=== PATIENT | female | born 1955 | race Caucasian/White ===

== ENCOUNTER 2020-03-24 14:04 | Emergency (ER) | payer OTHER, MEDICAID, SELFPAY ==
[2020-03-24 15:27] VITALS: BP 99/54; PULSE 79; RESP 18; TEMP 36.4; O2SAT 97; BMI 24.6
[2020-03-24 17:59] VITALS: BP 109/73; PULSE 80; RESP 17; TEMP 37.5; O2SAT 96
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
--- NOTE | 2020-03-24 18:19 | XR_ITS ---
EXAMINATION: XR CHEST: 2 VIEW XR CERVICAL SPINE: 5 VIEWS XR RIGHT SHOULDER: 3 VIEWS XR LEFT KNEE: 2 VIEWS CLINICAL INFORMATION: Trauma COMPARISON: Chest x-ray dated 02/20/2016 XR/XR knee LT 2V FINDINGS/IMPRESSION: Chest: Middle lobe collapse/complete atelectasis. Left lung clear. No pneumothorax. Heart size and pulmonary vascularity within normal limits. No acute osseous abnormalities. Cervical spine: No acute fracture or subluxation. Endplate ossified present at C4-C5. Mild facet arthropathy throughout cervical spine. Paraspinal soft tissues unremarkable. Right shoulder: No acute fracture or dislocation. Small acromioclavicular and glenohumeral marginal osteophytes. Soft tissues unremarkable. Right knee: No acute fracture or dislocation. Joint spaces and articular surfaces are maintained. Trace joint effusion. Soft tissues unremarkable.
--- NOTE | 2020-03-24 19:32 | CT_ITS ---
EXAMINATION: CT CHEST WITHOUT CONTRAST CLINICAL INFORMATION: Right middle lobe collapse. COMPARISON: Chest radiograph 03/24/2020 and 09/21/2019 TECHNIQUE: Multidetector volumetric CT imaging of the chest was done. Axial MIP volume rendering provided. Sagittal and coronal reformatted images were obtained. This CT examination was performed using dose optimization techniques as appropriate, variously including the following: *Automated exposure control *Adjustment of mA and/or kV according to patient size (this includes techniques or standardized protocols for targeted exams where dose is matched to indication/reason for exam; i.e. extremities or head) *Use of iterative reconstruction technique DLP: 208 mGy-cm FINDINGS: DETAIL MANAGER: Right middle lobe collapse/consolidation is present identical to that seen on the chest radiograph earlier today LUNGS: Dense consolidation is present in the right middle lobe with air bronchograms. There is some volume loss with partial collapse. The lungs are otherwise clear. MEDIASTINUM: The mediastinum is normal. No adenopathy is seen. For evaluation of the hilar structures, especially on the right, IV contrast would be advantageous. PLEURA: There is no pleural effusion. No pleural mass or thickening. AXILLA: No lymphadenopathy. UPPER ABDOMEN: A 1.5 cm benign water density left adrenal adenoma is present. A tiny adenoma may be present in the right adrenal gland. OSSEOUS STRUCTURES: Unremarkable. CT/CT chest wo con IMPRESSION: Right middle lobe collapse/consolidation. This could certainly represent pneumonia. Mucous plug could be another etiology. Repeat chest radiograph recommended in 3 months after treatment.
[2020-03-24 20:00] VITALS: BP 110/68; PULSE 73; RESP 17; TEMP 36.8; O2SAT 96
[2020-03-24 20:18] LABS: Basophils Absolute Auto 0.1 X10*3/uL (0.0-0.2); Basophils Percent Auto 0.8 % (0-2); Eosinophils Absolute Auto 0.2 X10*3/uL (0.0-0.4); Eosinophils Percent Auto 1.9 % (0-4); Hematocrit 42.7 % (37-47); Hemoglobin 14.6 g/dl (12.0-16.0); Imm Gran Abs Auto 0.02 X10*3/uL (0.00-0.03); Imm Gran Pct Auto 0.2 % (0.0-0.4); Lymphocytes Percent Auto 52.2 % (20-40); MANUAL DIFF FLAG SCAN; Mean Corpuscular HGB Conc 34.2 g/dl (31.0-35.0); Mean Corpuscular Volume 102.4 fL (80-98); Mean Platelet Volume 11.1 fL (9.4-12.3); Monocytes Absolute Auto 0.8 X10*3/uL (0.1-1.2); Neutrophils Absolute Auto 4.4 X10*3/uL (2.0-8.3); Neutrophils Percent Auto 37.9 % (45-73); Platelet Count 253 X10*3/uL (160-400); Red Blood Count 4.17 X10*6/uL (4.20-5.50); Red Cell Distribution Width 13.9 % (11.0-16.0); SCAN SMEAR FLAG 1; White Blood Count 11.6 X10*3/uL (4.8-10.8)
[2020-03-24 20:21] LABS: Prothrombin Time 11.9 SEC (10.8-13.0)
[2020-03-24 20:24] LABS: Partial Thromboplastin Time 34.7 SEC (24.1-38.0)
[2020-03-24 20:32] LABS: Lymphocytes Absolute Auto 6.1 X10*3/uL (1.2-4.9)
[2020-03-24 20:37] LABS: Anion Gap 11 (12-20); Blood Urea Nitrogen 17 mg/dL (9-16); Calcium 9.7 mg/dL (8.4-10.2); Carbon Dioxide 27 mmol/L (22-29); Chloride 108 mmol/L (96-108); Creatinine Clr Calc Pharmacy 50.1; Estimated Glomerular Filt Rate > 60; Glucose Random 116 mg/dL (60-115); Potassium 4.5 mmol/L (3.3-5.1); Sodium 141 mmol/L (135-145)
[2020-03-24 20:54] LABS: SLIDE REVIEW VERIFIED
== END 2020-03-24 21:13 | disposition home or self-care (01) ==
PROVIDERS: Nurse Practitioner Family; Emergency Provider Internal Medicine; PCP Family Medicine
DX: S19.9XXA Unspecified injury of neck, initial encounter (principal); S29.9XXA Unspecified injury of thorax, initial encounter; J18.1 Lobar pneumonia, unspecified organism; M25.562 Pain in left knee; M25.561 Pain in right knee; M54.5 Low back pain; R07.89 Other chest pain; V43.52XA Car driver injured in collision with other type car in traffic accident, initial encounter; Y93.9 Activity, unspecified; Y92.410 Unspecified street and highway as the place of occurrence of the external cause; Y99.9 Unspecified external cause status; F17.200 Nicotine dependence, unspecified, uncomplicated; Z71.6 Tobacco abuse counseling; Z79.899 Other long term (current) drug therapy
CPT/HCPCS: 36415; 71046; 71250; 72040; 73030; 73560; 80048; 85025; 85060; 85610; 85730; 99284

== ENCOUNTER → 2020-03-31 13:05 | Outpatient (BNVA) | payer MEDICAID, SELFPAY | PROVIDERS: PCP Family Medicine; Visit Provider Hospitalist | DX: J98.11 Atelectasis (principal); J41.8 Mixed simple and mucopurulent chronic bronchitis | CPT/HCPCS: 99202 ==

== ENCOUNTER 2020-04-06 13:33 | Outpatient (REF) | payer OTHER, MEDICAID, SELFPAY ==
--- NOTE | ~2020-04-06 | US_ITS ---
EXAMINATION: COLOR-FLOW DUPLEX IMAGING OF THE BILATERAL LOWER EXTREMITY ARTERIAL SYSTEM. VELOCITY MEASUREMENTS THROUGHOUT THE FEMORAL ARTERIES WITH ANKLE-BRACHIAL PERIPHERAL ARTERIAL TESTING. CLINICAL INFORMATION: This is a 64-year-old female with right leg pain. Claudication. Interventional Radiologist: Ha Fleming M.D., F.S.I.R., FLio.Anuel.. COMPARISON: None. RIGHT FEMORAL RUNOFF VELOCITIES: The right common femoral artery measures 101 cm/s and triphasic. The right profunda femoral artery is 109 cm/s and is triphasic. Right proximal superficial femoral artery measures 74 cm/s and triphasic. Mid superficial femoral artery is 83 cm/s and triphasic. Distal right superficial femoral artery measures 79 cm/s and is triphasic. Right popliteal velocity measures 82 cm/s and is triphasic. The posterior tibial artery velocity measures 76 cm/s and was triphasic. LEFT FEMORAL RUNOFF VELOCITIES: The left common femoral artery measures 101 cm/s and triphasic. The left profunda femoral artery is 87 cm/s and is triphasic. Left proximal superficial femoral artery measures 76 cm/s and triphasic. Mid superficial femoral artery is 94 cm/s and triphasic. Distal left superficial femoral artery measures 81 cm/s and is triphasic. Left popliteal velocity measures 59 cm/s and is triphasic. The posterior tibial artery velocity measures 67 cm/s and was triphasic. 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 On the right measuring 1.9 x 0.6 x 1.4 cm. On the left measuring 2.5 x 0.8 x 1.7 cm. US/US arterial duplex LE BI IMPRESSION: 1. Normal bilateral resting peripheral arterial testing without evidence of hemodynamically significant stenosis. 2. 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
== END 2020-04-06 13:34 | disposition home or self-care (01) ==
LOC: HO.US 13:33
PROVIDERS: PCP Family Medicine; Visit Provider Family Medicine
DX: M79.604 Pain in right leg (principal)
CPT/HCPCS: 93925

== ENCOUNTER 2020-04-11 13:41 | Outpatient (REF) | payer MEDICAID, SELFPAY ==
--- NOTE | ~2020-04-11 | MR_ITS ---
EXAMINATION: MR BRAIN WITHOUT AND WITH CONTRAST CLINICAL INFORMATION: Tinnitus right ear, recent onset. COMPARISON: None available. TECHNIQUE: Multiplanar, multisequence imaging of the brain was performed before and after the intravenous administration of 5 mL of Gadavist. FINDINGS: The inner ear structures including the cochlea, vestibules, and semicircular canals exhibit preserved CSF signal intensity with no pathologic enhancement. The vestibular aqueducts are not enlarged. Cranial nerves VII and VIII complexes are normal in morphology. No enhancing cerebellopontine angle/retrocochlear lesion. There is no intracranial mass or abnormal intracranial enhancement. There is no acute infarction. There is no intracranial hemorrhage or extra axial collection. The ventricles, sulci, and basilar cisterns are normal in size and configuration. A small lacunar infarct is seen within the left basal ganglia and demonstrates minimal peripheral enhancement suggesting this is subacute. A few scattered foci of T2 hyperintensity are seen in the bilateral cerebral white matter presumably reflecting chronic microangiopathy. Incidentally noted is moderate to severe polypoid thickening throughout the visualized paranasal sinuses with scattered aerated secretions seen. There is a small amount of fluid in the right mastoid. The major arterial flow voids are preserved at the skull base. The orbital contents appear normal. The adenoids appear diffusely enlarged with the adenoid pad measuring up to 1.5 cm. The clival marrow signal appears normal. There is no retropharyngeal adenopathy. MR/MR head/brain wo/w con IMPRESSION: No vestibular schwannoma or retrocochlear lesion identified. A subacute appearing lacunar infarct is incidentally noted within the left basal ganglia. Moderate to severe polypoid opacification of the paranasal sinuses with small amount of layering fluid. Consider ENT follow-up. The adenoid pad appears enlarged, unexpected for a patient of this age. This could be visually inspected at the time of ENT evaluation.
== END 2020-04-11 13:42 | disposition home or self-care (01) ==
LOC: HO.MRI 13:41
PROVIDERS: Visit Provider Family Medicine
DX: H93.11 Tinnitus, right ear (principal)
CPT/HCPCS: 70553; A9585

== ENCOUNTER 2020-04-25 11:10 | Outpatient (REF) | payer MEDICAID, SELFPAY ==
--- NOTE | ~2020-04-25 | XR_ITS ---
EXAMINATION: XR CHEST CLINICAL INFORMATION: Chronic bronchitis COMPARISON: Previous chest x-ray and chest CT scan February 2020 TECHNIQUE: 2 views of the chest were obtained. FINDINGS: The cardiac and mediastinal contours are stable. There is right middle lobe atelectasis/consolidation that is similar to previous exams. There are increased central hilar markings suggestive of mild bronchial wall thickening. The lungs are otherwise clear. There is no pleural effusion or pneumothorax. Bony structures are unremarkable. XR/XR chest 2V IMPRESSION: Right middle lobe atelectasis/consolidation similar to previous exams.
== END 2020-04-25 11:11 | disposition home or self-care (01) ==
LOC: HO.XRAY 11:10
PROVIDERS: PCP Family Medicine; Visit Provider Hospitalist
DX: J41.8 Mixed simple and mucopurulent chronic bronchitis (principal); J98.11 Atelectasis
CPT/HCPCS: 71046; 99212

== ENCOUNTER 2020-05-08 08:42 | Outpatient (REF) | payer MEDICAID, SELFPAY ==
--- NOTE | ~2020-05-08 | CT_ITS ---
EXAMINATION: CT CHEST WITHOUT CONTRAST CLINICAL INFORMATION: Atelectasis. COMPARISON: CT chest 03/24/2020 and chest x-ray 04/25/2020. TECHNIQUE: Multidetector volumetric CT imaging of the chest was done. Axial MIP volume rendering provided. Sagittal and coronal reformatted images were obtained. This CT examination was performed using dose optimization techniques as appropriate, variously including the following: Automated exposure control. Adjustment of mA and/or kV according to patient size (this includes techniques or standardized protocols for targeted exams where dose is matched to indication/reason for exam; i.e. extremities or head). Use of iterative reconstruction technique. 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 LUNGS: Lungs are well-expanded and clear of acute pneumonic process. There is a punctate 2 mm calcification in right middle lobe image 406/7. No additional pulmonary nodules, mass or atelectasis seen. No ground-glass density either. MEDIASTINUM: The thyroid lobes are symmetric and normal. The central trachea and the bronchi are widely patent. There is atherosclerotic calcification of thoracic arch and origins of right brachiocephalic and left subclavian artery. No abnormal size mediastinal or hilar lymph nodes seen. No pericardial effusion seen. Minimal left coronary artery calcifications are seen. PLEURA: There is no pleural effusion. No pleural mass or thickening. AXILLA: No abnormal lymph nodes seen. UPPER ABDOMEN: Visualized liver, spleen, pancreas and right adrenal gland is unremarkable. There is a left adrenal 1.5 cm adenoma measuring 0.13 Hounsfield units. OSSEOUS STRUCTURES: No lytic or sclerotic process seen. CT/CT chest wo con IMPRESSION: The lungs are clear. No evidence of atelectasis. There is a 2 mm calcified granuloma right middle lobe. A 1.5 cm left adrenal adenoma. It is unchanged to previous CT chest exam 03/24/2020.
== END 2020-05-08 08:43 | disposition home or self-care (01) ==
LOC: HO.CT 08:42
PROVIDERS: Visit Provider Hospitalist
DX: J98.11 Atelectasis (principal)
CPT/HCPCS: 71250

== ENCOUNTER 2020-05-23 10:06 | Outpatient (REF) | payer MEDICAID, SELFPAY ==
--- NOTE | ~2020-05-23 | XR_ITS ---
EXAMINATION: XR CHEST CLINICAL INFORMATION: Atelectasis COMPARISON: None TECHNIQUE: 2 views of the chest were obtained. FINDINGS: The lungs are well-expanded with increased interstitial markings but no focal nodule or consolidation. No pleural effusion. Heart size and vascularity is normal. No gross bony abnormality seen. XR/XR chest 2V IMPRESSION: Unremarkable chest exam.
== END 2020-05-23 10:07 | disposition home or self-care (01) ==
LOC: HO.XRAY 10:06
PROVIDERS: PCP Family Medicine; Visit Provider Hospitalist
DX: J98.11 Atelectasis (principal); J41.8 Mixed simple and mucopurulent chronic bronchitis; F17.200 Nicotine dependence, unspecified, uncomplicated; Z71.6 Tobacco abuse counseling; Z79.899 Other long term (current) drug therapy
CPT/HCPCS: 71046; 99212

== ENCOUNTER 2020-06-15 09:24 | Outpatient (REF) | payer MEDICAID, SELFPAY ==
--- NOTE | 2020-06-15 | EMG_ITS ---
Right tibial and peroneal motor studies were performed. Right superficial peroneal and sural sensory studies were performed. Tibial H-reflex was obtained and paraspinal muscles were tested. 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 MD MACARIO Pace/ANATOLY / [phone]
== END 2020-06-15 09:25 | disposition home or self-care (01) ==
LOC: HO.NEURO 09:24
PROVIDERS: PCP Family Medicine; Visit Provider Family Medicine
DX: M79.604 Pain in right leg (principal)
CPT/HCPCS: 95886; 95909

== ENCOUNTER 2020-07-28 12:24 | Outpatient (REF) | payer MEDICAID, SELFPAY ==
[2020-07-30 20:12] LABS: TS Negative Control Passed; TS Panel A 1; TS Panel B 0; TS Positive Control Passed; TSpotTB Negative (SeeBelow)
== END 2020-07-28 12:25 | disposition home or self-care (01) ==
LOC: HO.LAB 12:24
PROVIDERS: PCP Family Medicine; Visit Provider Internal Medicine
DX: R76.12 Nonspecific reaction to cell mediated immunity measurement of gamma interferon antigen response without active tuberculosis (principal)
CPT/HCPCS: 36415; 86481

== ENCOUNTER 2020-10-06 11:32 | Outpatient (REF) | payer MEDICARE, MEDICAID, SELFPAY ==
--- NOTE | ~2020-10-06 | MM_ITS ---
EXAMINATION: MM SCREENING DIGITAL BREAST TOMOSYNTHESIS, BILATERAL CLINICAL INFORMATION: Screening. Asymptomatic. The lifetime risk of breast cancer based on the Tyrer-Cuzick Model is 6%. COMPARISON: Mammography: 04/09/2019, 04/06/2018, 03/31/2017 TECHNIQUE: Digital breast tomosynthesis is performed in both the craniocaudal and mediolateral oblique views along with computer-aided detection (CAD). Synthesized 2D images are generated from the tomosynthesis. FINDINGS: There are scattered areas of fibroglandular density (ACR BI-RADS breast composition Category b). Parenchymal pattern is similar to prior exams. There is mild bilateral central anterior duct ectasia similar to prior studies. There is no significant mass or architectural abnormality or abnormal calcifications. The skin contours are smooth. No significant changes from prior studies. MM/MM tomosynthesis screening BI IMPRESSION: No mammographic evidence of malignancy. ASSESSMENT: BI-RADS 2: Benign RECOMMENDATION: Routine annual mammography screening. This patient's information was entered into a reminder system with a target due date for their next mammogram.
== END 2020-10-06 11:33 | disposition home or self-care (01) ==
LOC: HO.MAMMO 11:32
PROVIDERS: Visit Provider Family Medicine
DX: Z12.31 Encounter for screening mammogram for malignant neoplasm of breast (principal)
CPT/HCPCS: 77063; 77067

== ENCOUNTER 2020-11-23 10:39 | Outpatient (REF) | payer OTHER, SELFPAY ==
--- NOTE | ~2020-11-23 | XR_ITS ---
EXAMINATION: XR CHEST CLINICAL INFORMATION: Atelectasis. COMPARISON: 05/23/2020 TECHNIQUE: 2 views of the chest were obtained. FINDINGS: No acute finding. The lung weiner are felt to be grossly clear and comparable to previous. No infiltrate. No effusion. The cardiac silhouette is within normal limits. The hilar structures do not appear pathologically enlarged. There is no effusion. XR/XR chest 2V IMPRESSION: No acute finding.
== END 2020-11-23 10:40 | disposition home or self-care (01) ==
LOC: HO.XRAY 10:39
PROVIDERS: Visit Provider Hospitalist
DX: J41.8 Mixed simple and mucopurulent chronic bronchitis (principal); J98.11 Atelectasis; R91.8 Other nonspecific abnormal finding of lung field; Z79.899 Other long term (current) drug therapy
CPT/HCPCS: 71046; 99212

== ENCOUNTER → 2020-12-29 12:56 | Outpatient (REF) | payer OTHER, SELFPAY ==
--- NOTE | 2020-12-29 13:03 | HM_ITS ---
Conclusion: 1. Patient was monitored for total period of 6 days and 21 hours 2. Baseline rhythm is normal sinus rhythm with average heart of 86 beats per minute 3. No significant bradycardia or pauses noted 4. No significant arrhythmias noted 5. No patient reported events MTDD
== END ==
LOC: HO.CARD 12:56
PROVIDERS: PCP Family Medicine; Visit Provider Psychiatry & Neurology Neurology
DX: I63.50 Cerebral infarction due to unspecified occlusion or stenosis of unspecified cerebral artery (principal)
CPT/HCPCS: 93242

== ENCOUNTER → 2021-06-28 11:18 | Outpatient (BNVA) | payer OTHER, SELFPAY | PROVIDERS: PCP Family Medicine; Visit Provider Hospitalist | DX: J98.11 Atelectasis (principal); J44.1 Chronic obstructive pulmonary disease with (acute) exacerbation; R91.8 Other nonspecific abnormal finding of lung field | CPT/HCPCS: 99212 ==

== ENCOUNTER 2021-08-29 10:22 | Outpatient (REF) | payer OTHER, SELFPAY ==
[2021-08-29 11:55] LABS: Hemoglobin 14.9 g/dl (12.0-16.0); Mean Corpuscular HGB Conc 33.9 g/dl (31.0-35.0); Mean Corpuscular Hemoglobin 34.2 pg (27.0-33.0); Mean Corpuscular Volume 100.9 fL (80.0-98.0); Platelet Count 267 X10*3/uL (160-400); Red Blood Count 4.36 X10*6/uL (4.20-5.50); Red Cell Distribution Width 14.2 % (11.0-16.0); White Blood Count 11.2 X10*3/uL (4.8-10.8)
[2021-08-29 12:03] LABS: Estimated Average Glucose 126 mg/dL
[2021-08-29 12:36] LABS: Creatinine Urine 133.51 mg/dL; Microalbum/Creatinine Ratio Ur 8.9 ug/mg cr
[2021-08-29 12:41] LABS: Free T4 (Free Thyroxine) 1.79 ng/dL (0.71-1.85); Thyroid Stimulating Hormone 0.93 uIU/mL (0.32-4.0); Vitamin D 25-OH Total 40.7 ng/mL (>30)
[2021-08-29 12:53] LABS: Syphilis Screen Nonreactive (Nonreactive)
[2021-08-29 13:03] LABS: Alanine Aminotransferase 20 U/L (0-31); Albumin Level 4.6 g/dL (3.5-5.0); Alkaline Phosphatase 43 U/L (39-117); Anion Gap 15 (12-20); Aspartate Amino Transferase 19 U/L (5-31); Bilirubin Direct 0.2 mg/dL (0.0-0.5); Bilirubin Total 0.3 mg/dL (0.0-1.0); Blood Urea Nitrogen 14 mg/dL (9-16); Calcium 10.4 mg/dL (8.4-10.2); Carbon Dioxide 28 mmol/L (22-29); Chloride 105 mmol/L (96-108); Estimated Glomerular Filt Rate 58; Glucose Random 147 mg/dL (60-115); Potassium 3.8 mmol/L (3.3-5.1); Sodium 144 mmol/L (135-145); Total Protein 7.6 g/dL (6.5-8.0)
[2021-08-30 13:47] LABS: Calcium (PTHI) 10.6 mg/dL (8.6-10.4); PTHI 16 pg/mL (16-77)
[2021-08-31 19:17] LABS: TS Negative Control Passed; TS Panel A 1; TS Panel B 0; TS Positive Control Passed; TSpotTB Negative (Negative)
== END 2021-08-29 10:23 | disposition home or self-care (01) ==
LOC: HO.LAB 10:22
PROVIDERS: PCP Family Medicine; Visit Provider Family Medicine
DX: E11.22 Type 2 diabetes mellitus with diabetic chronic kidney disease (principal); E83.52 Hypercalcemia; N18.9 Chronic kidney disease, unspecified
CPT/HCPCS: 36415; 80048; 80076; 82043; 82306; 83036; 83970; 84439; 84443; 85027; 86481; 86780

== ENCOUNTER 2021-09-17 07:42 | Outpatient (REF) | payer OTHER, SELFPAY ==
--- NOTE | ~2021-09-17 | CT_ITS ---
EXAMINATION: CT CHEST WITHOUT CONTRAST CLINICAL INFORMATION: TIA. Left adrenal adenoma. COMPARISON: CT chest 05/08/2020 . TECHNIQUE: Multidetector volumetric CT imaging of the chest was done. Axial MIP volume rendering provided. Sagittal and coronal reformatted images were obtained. This CT examination was performed using dose optimization techniques as appropriate, variously including the following: *Automated exposure control *Adjustment of mA and/or kV according to patient size (this includes techniques or standardized protocols for targeted exams where dose is matched to indication/reason for exam; i.e. extremities or head) *Use of iterative reconstruction technique DLP: 198 mGy-cm FINDINGS: HOTEL RESERVATIONIST: Unremarkable LUNGS: The lungs are well-expanded and clear of acute pneumonic process. There is a right lower lobe basilar opacity likely atelectasis. Developing infiltrate is not excluded. It is a new finding. There is a 2 mm calcified nodule right middle lobe (axial image 386/7) is stable. No additional nodules seen. MEDIASTINUM: The thyroid lobes are symmetrical and normal. The central trachea and the bronchi widely patent. Heart size and the great vessels are normal caliber. There is atherosclerotic calcification of thoracic arch. No abnormal size mediastinal lymph nodes seen. There is no pericardial effusion. PLEURA: There is no pleural effusion. No pleural mass or thickening. AXILLA: There are small shotty lymph nodes in the axilla. The chest wall is unremarkable. UPPER ABDOMEN: Visualized liver, spleen, pancreas appears unremarkable. There is a left adrenal 1.3 x 1.7 cm lesion measuring 2.6 Hounsfield units, stable. OSSEOUS STRUCTURES: Slightly heterogeneous bone marrow is seen throughout the thoracic spine similar to previous exam. CT/CT chest wo con IMPRESSION: 1. Right lower lobe posterior basal segment patchy opacity atelectasis/developing infiltrate. 2. Stable right middle lobe calcified granuloma. Fleischner guidelines were followed.
--- NOTE | ~2021-09-17 | CT_ITS ---
EXAMINATION: CT ANGIOGRAM HEAD CT ANGIOGRAM NECK CLINICAL INFORMATION: Transient ischemic attack. COMPARISON: Brain MRI from 04/11/2020. TECHNIQUE: Initial noncontrast nutrition services manager imaging of the head and neck was performed. Noncontrast head CT was also performed. Test bolus sequences followed by intravenous administration 85 mL of Omnipaque 350. Helical imaging was performed in the axial plane from the aortic arch to the skull vertex. Delayed postcontrast imaging of the head was also performed. The data was processed at the nuclear medical technologist's workstation for generation of MIP sequences. Angled MIPs and volume rendered reformatted images were also generated at an offline 3D workstation. Stenoses are assessed in accordance with NASCET criteria unless otherwise indicated. This CT examination was performed using dose optimization techniques as appropriate, variously including the following: *Automated exposure control. *Adjustment of mA and/or kV according to patient size (this includes techniques or standardized protocols for targeted exams where dose is matched to indication/reason for exam; i.e. extremities or head). *Use of iterative reconstruction technique. DLP: 2150 mGy-cm FINDINGS: CT Head: There is no evidence of acute intracranial hemorrhage or edematous territorial infarction. Chronic lacunar infarct of the left ny radiata/lentiform nucleus. A few foci of hypoattenuation in the periventricular and deep white matter are consistent with mild microangiopathy. Salazar-white matter differentiation is preserved. The ventricles are normal in size and configuration. No evidence for obstructive hydrocephalus. No abnormal mass effect or midline shift. No extra-axial fluid collections. No pathologic intra-axial enhancement or regional oligemia. No acute soft tissue or osseous abnormalities. Prominent mucosal thickening of the paranasal sinuses. Chronic depression of the left lamina papyracea. The mastoid air cells and middle ear cavities are clear. The patient is edentulous. CT Neck: The thyroid gland and remaining cervical soft tissues are within normal limits. Moderate degenerative disease at C4-C5 and C5-C6. CT Upper Chest: The visualized lung apices and upper mediastinum are within normal limits. Neck CTA: Aortic Arch: Normal contour and caliber with mild calcific atherosclerotic disease. Classic 3 vessel branching pattern of the aortic arch. Great Vessel Origins: No significant stenosis of the branch origins. Right Common Carotid Artery: No focal stenosis or occlusion. Cervical Right Internal Carotid Artery: Normal opacification without focal stenosis or occlusion. Left Common Carotid Artery: No focal stenosis or occlusion. Cervical Left Internal Carotid Artery: Normal opacification without focal stenosis or occlusion. Cervical Right Vertebral Artery: Co-dominant. No focal stenosis or occlusion. Cervical Left Vertebral Artery: Co-dominant. No focal stenosis or occlusion. Brain CTA: Intracranial Internal Carotid Arteries: Calcific atherosclerotic disease of the intracranial internal carotid arteries without occlusion or flow-limiting stenosis. Right Anterior Cerebral Artery: The A1 segment is diminutive. Normal opacification of the distal KRISTA segments. Left Anterior Cerebral Artery: Normal A1 segment. Normal opacification of the distal KRISTA segments. Anterior Communicating Artery: Normal. Right Middle Cerebral Artery: Normal M1 segment of the MCA without focal stenosis or occlusion. Normal arborization of the distal segments. Left Middle Cerebral Artery: Normal M1 segment of the MCA without focal stenosis or occlusion. Normal arborization of the distal segments. Right Vertebral Artery: Normal V4 segment. Normal opacification of the proximal segments of the posterior inferior cerebellar artery. Left Vertebral Artery: Normal V4 segment. Normal opacification of the proximal segments of the posterior inferior cerebellar artery. Basilar Artery: Normal without focal stenosis or occlusion. Normal appearance of the proximal superior cerebellar arteries. Right Posterior Cerebral Artery: The P1 segment is mildly diminutive. 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 Normal opacification of the distal C[employer] WO[employer] STAIR BUILDER segments. Left Posterior Cerebral Artery: Normal P1 segment. Normal posterior communicating artery. Normal opacification of the distal C[employer] WO[employer] STAIR BUILDER segments. Right dominant transverse/sigmoid sinuses. The left-sided transverse/sigmoid sinuses are diminutive. Otherwise, normal opacification of the superior sagittal, straight, transverse, and sigmoid sinuses. CT/CT angio head neck IMPRESSION: 1. No evidence of acute intracranial hemorrhage or edematous territorial infarction. Mild underlying microangiopathy. Chronic lacunar infarct of the left-sided ny radiata/lentiform nucleus. 2. CTA of the head and neck without proximal occlusion or flow-limiting stenosis. 3. Prominent sinonasal mucosal disease.
--- NOTE | 2021-09-17 09:40 | CA_ITS ---
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 The calculated ejection fraction is 69% by biplane method. - No obvious valvular pathology seen on this study. Findings Left Ventricle Normal left ventricular cavity size. There is normal left ventricular wall thickness. The left ventricular systolic function is normal. The calculated ejection fraction is 69% by biplane method. There is no evidence of regional wall motion abnormalities. Diastolic function is normal for age. Right Ventricle Normal right ventricular cavity size and systolic function. Atria Both atria are normal in size. There is no evidence of interatrial shunt by color Doppler. Aortic Valve The aortic valve was not well visualized. There is no aortic valve stenosis. There is no aortic valve regurgitation. Mitral Valve The mitral valve appears normal. There is no mitral valve regurgitation. There is no mitral valve stenosis. Pulmonic Valve The pulmonic valve is likely normal. Tricuspid Valve There is trace tricuspid valve regurgitation. The pulmonary artery systolic pressure is normal. Great Vessels The aortic annulus, sinuses of valsalva, and asc aorta are normal in size. Venous The inferior vena cava is normal in size and collapses greater than 50% with inspiration. Pericardium/Pleural There is no evidence of pericardial effusion. Prior Study Comparison No prior study available for comparison. Recommendations, Care & Conclusions No obvious valvular pathology seen on this study. Measurements 2D Linear Measurements IVSd: 1.01 0.6-0.9/0.6-1.0 cm LVIDd: 3.33 3.9-5.3/4.2-5.9 cm LVIDd Index: 2.13 2.4-3.2/2.2-3.1 cm/m2 LVIDs: 1.99 2.0-3.6 cm LVPWd: 0.98 0.7-1.1 cm Ao Root: 2.90 2.1-3.5 cm LA Diam: 2.70 2.7-3.8/3.0-4.0 cm LAIDs Index: 1.73 1.5-2.3 cm/m2 LV Mass: 118.28 67-162/88-224 g LV Mass Index: 75.82 43-95/49-115 g/m2 LVOT Diam: 2.00 3.0+(-)1.3 cm 2D Systolic Function EF 4C: 71.30 >55% EF 2C: 70.70 >55% EF BiP: 69.20 >55% Mitral Valve MV Pk E: 0.74 MV PK A: 0.98 MV Decel Time: 185.00 E/A: 0.80 E'Lateral: 7.72 E'Medial: 7.72 E/E' Med: 9.50 E/E' Lat: 9.50 PHT: 54.00 MVA PHT: 4.07 Decel Searcy: 3.98 Aortic Valve AoV Pk Reymundo: 1.17 AoV Mn Reymundo: 0.70 AoV VTI: 0.29 AoV Pk Grad: 5.00 Aov Mn Grad: 3.00 ALYSE Cont.VTI: 2.50 LVOT LVOT Pk Reymundo: 0.93 LVOT Mn Reymundo: 0.57 LVOT VTI: 0.23 LVOT Pk Grad: 3.00 LVOT Mn Grad: 2.00 LVOT Diam: 2.00 LVOT Area: 3.14 Diastolic Function MV Pk E: 0.74 MV Pk A: 0.98 E/A: 0.80 E'Medial: 7.72 E/E' Med: 9.50 E' Laterial: 7.72 E/E' Lat: 9.50 Right Ventricle TAPSE (mm): 24.00 TVS' Reymundo: 11.00 Tricuspid Valve TR Pk Reymundo: 1.71 TR Pk Grad: 12.00 RA Press: 3.00 RVSP: 15.00 Great Vessels Aorta Ao Root-2D: 2.90 2.0-3.7 cm Ao Asc: 3.00 2.1-3.4 cm Pulmonary Valve PV Pk Reymundo: 0.96 Peak PV Grad: 4.00 Updated in Other Vendor System with Status of Final Skip Szymanski MD electronically signed on 09/17/2021 11:41:54 AM with status of Final
[2021-09-17] MEDS: iohexoL 350 MG/ML 100 ML INFUS..BTL IV (09:42)
== END 2021-09-17 07:43 | disposition home or self-care (01) ==
LOC: HO.CT 07:42
PROVIDERS: PCP Family Medicine; Visit Provider Family Medicine
DX: R93.89 Abnormal findings on diagnostic imaging of other specified body structures (principal); Z86.73 Personal history of transient ischemic attack (TIA), and cerebral infarction without residual deficits; D35.02 Benign neoplasm of left adrenal gland
CPT/HCPCS: 70496; 70498; 71250; 93306; Q9967

== ENCOUNTER 2021-10-09 11:50 | Outpatient (REF) | payer OTHER, SELFPAY ==
--- NOTE | ~2021-10-09 | MM_ITS ---
EXAMINATION: MM SCREENING DIGITAL BREAST TOMOSYNTHESIS, BILATERAL CLINICAL INFORMATION: Screening. Asymptomatic. The lifetime risk of breast cancer based on the Tyrer-Cuzick Model is 6.4%. COMPARISON: Mammography: October 06, 2020 and studies dating back to March 03, 2015 TECHNIQUE: Digital breast tomosynthesis is performed in both the craniocaudal and mediolateral oblique views along with computer-aided detection (CAD). Synthesized 2D images are generated from the tomosynthesis. FINDINGS: There are scattered areas of fibroglandular density (ACR BI-RADS breast composition Category b). There are no significant masses, abnormal calcifications, or other abnormalities. MM/MM tomosynthesis screening BI IMPRESSION: No significant changes from prior exam. ASSESSMENT: BI-RADS 1: Negative RECOMMENDATION: Routine annual mammography screening. This patient's information was entered into a reminder system with a target due date for their next mammogram.
== END 2021-10-09 11:51 | disposition home or self-care (01) ==
LOC: HO.MAMMO 11:50
PROVIDERS: PCP Family Medicine; Visit Provider Family Medicine
DX: Z12.31 Encounter for screening mammogram for malignant neoplasm of breast (principal)
CPT/HCPCS: 77063; 77067

== ENCOUNTER 2021-10-22 09:27 | Outpatient (REF) | payer OTHER, SELFPAY ==
--- NOTE | ~2021-10-22 | XR_ITS ---
EXAMINATION: XR CHEST CLINICAL INFORMATION: Follow-up abnormal chest CT COMPARISON: Previous chest CT August 2021 and chest x-ray October 2020 TECHNIQUE: 2 views of the chest were obtained. FINDINGS: The cardiac and mediastinal contours are normal. The lungs are clear. There is no pleural effusion or pneumothorax. Bony structures are unremarkable. XR/XR chest 2V IMPRESSION: Unremarkable exam.
== END 2021-10-22 09:28 | disposition home or self-care (01) ==
LOC: HO.XRAY 09:27
PROVIDERS: PCP Family Medicine; Referring Provider Hospitalist; Visit Provider Family Medicine
DX: R93.89 Abnormal findings on diagnostic imaging of other specified body structures (principal)
CPT/HCPCS: 71046

== ENCOUNTER → 2021-12-27 11:00 | Outpatient (BNVA) | payer OTHER, SELFPAY | PROVIDERS: PCP Family Medicine; Visit Provider Hospitalist | DX: J98.11 Atelectasis (principal); J44.1 Chronic obstructive pulmonary disease with (acute) exacerbation; R91.8 Other nonspecific abnormal finding of lung field | CPT/HCPCS: 99212 ==

== ENCOUNTER 2022-08-05 11:00 | Outpatient (REF) | payer OTHER, SELFPAY ==
--- NOTE | ~2022-08-05 | XR_ITS ---
EXAMINATION: XR CHEST CLINICAL INFORMATION: Atelectasis COMPARISON: Previous chest x-ray September 2021 TECHNIQUE: 2 views of the chest were obtained. FINDINGS: The cardiac and mediastinal contours are stable. The lungs are clear. No pleural effusion or pneumothorax. Normal bony structures. XR/XR chest 2V IMPRESSION: Unremarkable examination.
== END 2022-08-05 11:01 | disposition home or self-care (01) ==
LOC: HO.XRAY 11:00
PROVIDERS: PCP Family Medicine; Visit Provider Hospitalist
DX: J98.11 Atelectasis (principal); J44.1 Chronic obstructive pulmonary disease with (acute) exacerbation; R91.8 Other nonspecific abnormal finding of lung field; F17.210 Nicotine dependence, cigarettes, uncomplicated
CPT/HCPCS: 71046; 99212

== ENCOUNTER 2022-10-21 10:32 | Outpatient (REF) | payer OTHER, SELFPAY ==
--- NOTE | ~2022-10-21 | MM_ITS ---
EXAMINATION: MM SCREENING DIGITAL BREAST TOMOSYNTHESIS, BILATERAL CLINICAL INFORMATION: Screening. Asymptomatic. COMPARISON: Mammography: 10/09/2021, 10/06/2020, 04/09/2019, and dating back to 2017. TECHNIQUE: Digital breast tomosynthesis is performed in both the craniocaudal and mediolateral oblique views along with computer-aided detection (CAD). Synthesized 2D images are generated from the tomosynthesis. In addition, a digital full-field left CC nipple in profile view was obtained. FINDINGS: There are scattered areas of fibroglandular density (ACR BI-RADS breast composition Category b). There are no suspicious masses, suspicious grouped calcifications, or areas of architectural distortion. The parenchymal pattern is stable from prior exams. There is mild bilateral central anterior foci of duct ectasia similar to prior studies. No skin changes. Stable lymph node with large fatty hilum in the left axilla. MM/MM tomosynthesis screening BI IMPRESSION: No mammographic evidence of malignancy. Stable benign findings. ASSESSMENT: BI-RADS BI-RADS 2 - Benign Findings RECOMMENDATION: Routine annual mammography screening. 1 year F/U This examination should not preclude the clinical evaluation of a suspicious palpable abnormality. This patient's information was entered into a reminder system with a target due date for their next mammogram.
== END 2022-10-21 10:33 | disposition home or self-care (01) ==
LOC: HO.MAMMO 10:32
PROVIDERS: PCP Family Medicine; Visit Provider Family Medicine
DX: Z12.31 Encounter for screening mammogram for malignant neoplasm of breast (principal)
CPT/HCPCS: 77063; 77067

== ENCOUNTER → 2022-10-21 10:45 | Outpatient (BNV) | payer OTHER, SELFPAY | PROVIDERS: PCP Family Medicine; Visit Provider Radiology Diagnostic Radiology | DX: Z12.31 Encounter for screening mammogram for malignant neoplasm of breast (principal) | CPT/HCPCS: 77063; 77067 ==

== ENCOUNTER 2022-11-07 14:43 | Outpatient (REF) | payer OTHER, SELFPAY ==
--- NOTE | ~2022-11-07 | US_ITS ---
EXAMINATION: US VENOUS WITH DOPPLER UPPER EXTREMITY, LEFT CLINICAL INFORMATION: Left arm swelling and pain COMPARISON: None available. TECHNIQUE: Ultrasound of the upper extremity is performed using compression sonography and color and pulse Doppler flow with assessment of augmentation of flow. There is also imaging and Doppler assessment of the jugular and subclavian veins. Spectral analysis with color-flow imaging is performed. FINDINGS: Respiratory variation, normal compression, and augmented flow are noted throughout the upper extremity including the axillary, brachial, cubital, and radial and ulnar veins. There is normal flow in the internal jugular and subclavian veins. There is no visible deep or superficial thrombophlebitis. If the patient's symptoms progress, a followup ultrasound in 5 -7 days might be of value to exclude proximal propagation from a nonvisualized distal arm vein. US/US venous duplex UE LT IMPRESSION: No DVT demonstrated in the left upper extremity.
--- NOTE | ~2022-11-07 | XR_ITS ---
EXAMINATION: XR humerus LT, XR shoulder LT min 2V CLINICAL INFORMATION: Reason for Exam PAIN COMPARISON: None. TECHNIQUE: Four views of the shoulder and 2 views of the humerus FINDINGS: Lucency and irregularity of the head of the radial head may reflect sequelae of age-indeterminate radial head fracture, recommend correlation with dedicated elbow radiographs and history of trauma. Mild degenerative changes of the acromioclavicular joint with degenerative spurring. No shoulder fracture or dislocation. No soft tissue abnormality. XR/XR shoulder LT min 2V IMPRESSION: * Lucency and irregularity of the head of the radial head may reflect sequelae of age-indeterminate radial head fracture, recommend correlation with dedicated elbow radiographs and history of trauma. * Mild degenerative changes of the shoulder.
--- NOTE | ~2022-11-07 | XR_ITS ---
EXAMINATION: XR humerus LT, XR shoulder LT min 2V CLINICAL INFORMATION: Reason for Exam PAIN COMPARISON: None. TECHNIQUE: Four views of the shoulder and 2 views of the humerus FINDINGS: Lucency and irregularity of the head of the radial head may reflect sequelae of age-indeterminate radial head fracture, recommend correlation with dedicated elbow radiographs and history of trauma. Mild degenerative changes of the acromioclavicular joint with degenerative spurring. No shoulder fracture or dislocation. No soft tissue abnormality. XR/XR humerus LT IMPRESSION: * Lucency and irregularity of the head of the radial head may reflect sequelae of age-indeterminate radial head fracture, recommend correlation with dedicated elbow radiographs and history of trauma. * Mild degenerative changes of the shoulder.
[2022-11-07 15:53] LABS: Uric Acid 4.4 mg/dL (2.4-5.7)
[2022-11-09 06:04] LABS: Lyme Abs Screen <0.90 index
== END 2022-11-07 14:44 | disposition home or self-care (01) ==
LOC: HO.US 14:43
PROVIDERS: Absent Provider Family Medicine; PCP Family Medicine; Visit Provider Emergency Medicine
DX: M79.602 Pain in left arm (principal); M25.512 Pain in left shoulder; R60.0 Localized edema
CPT/HCPCS: 36415; 73030; 73060; 84550; 86617; 86618; 93971

== ENCOUNTER 2022-11-13 13:00 | Outpatient (RCR) | payer OTHER, SELFPAY ==
--- NOTE | 2023-03-11 07:29 | MHC.PT.DC ---
[facility] [place] Office [place] Office [place] Office [address] Willem Arteaga [address] [phone] F: [phone] F: [phone] F: [phone] F: [phone] Physical Therapy Discharge Report Diagnosis: bicipital tendinitis Date of Surgery: Date of Evaluation: 10/16/22 Date of Discharge: 01/10/23 Treatments to Date: 9 Cancellations to Date: No Shows to Date: Discharge Status: Independent with HEP Recommend MD Follow-up Discharge Summary: 11/13/22: Pt still have tough time with pain related to ER and abduction. She is returning to MD. she has an HEP and she will call back if more PT is needed. 11/11/22: pt with increased s/s, pain today. we held on progression today as a result. we will attempt to progress 1 more visit then likely hold until appt with ortho next friday. 11/06; Pt c/o pain with most exs. Pt refused UB stated it caused an increase in pain after it. 11/04/22: pt has been feeling better overall with skilled Pt, although UBE caused some soreness. we may re-visit in the future. 10/31/22: pt progressing well with skilled PT. we were able to add weight, resistance and UBE today. no adverse reactions. 10/29/22: pt progressing well with skilled PT. improved ROM. improved strength tolerance. 10/25/22: pt notes pain today. we held on progression, ended with CP today. attempt to progress NV. 10/23/22: pt progressing well with skilled PT. compliant with HEP. we will continue to progress as tolerated. Patient is a 67 year old R handed female who presents with s/s consistent with L shoulder pain, bicipital tendinitis. She does not work but enjoys staying active and able to use extremities without limitation. Patient past medical history includes DM, . Current impairments include pain, posture, ROM, strength, activity tolerance and functional mobility. Functional limitations include decreased ability to use LUE for all functional activities. Pt also has pain at rest. Patient is motivated with good rehab potential. Skilled PT will address impairments and functional limitations in order to achieve goals. Electronically signed by: Baudilio Medeiros, PT Please sign and return to therapist. Thank you for your referral.
== END 2023-03-11 07:29 | disposition home or self-care (01) ==
LOC: HO.PTCHIC 13:00
PROVIDERS: PCP Family Medicine; Visit Provider Internal Medicine
DX: M75.22 Bicipital tendinitis, left shoulder (principal)
CPT/HCPCS: 97110; 97140; 97163

== ENCOUNTER 2022-11-20 12:48 | Outpatient (AMB) | payer OTHER, SELFPAY ==
[2022-11-20 12:53] VITALS: BMI 24.2
--- NOTE | 2022-11-20 12:53 | A.OFFVIS_ITS ---
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 Patient reports ongoing pain for 2 months. She states that she tried physical therapy and it didn't help. Patient also reports stiffness in her left shoulder. She has difficulty lifting her left hand above shoulder height. She has tried Tylenol and anti- inflammatory medicines which gave her minimal Allergies No Known Allergies [No Known Allergies*] Allergy (Verified 11/20/22 12:59) Medication List - Last Reconciled 11/20/22 by Adonis Montana MD [id number] 600-50-300 mg (Triumeq) 1 tab PO DAILY acetaminophen 500 mg PO Q6H PRN albuterol sulfate 90 mcg/actuation 2 puffs inhalation Q4-6H PRN albuterol sulfate mg inhalation amitriptyline 25 mg PO BEDTIME aspirin 81 mg PO DAILY fenofibrate 160 mg PO DAILY fluticasone propionate 50 mcg/actuation (Flonase Allergy Relief) 1 spray intranasal DAILY [id number] 100-62.5-25 mcg (Trelegy Ellipta) 1 ea inhalation DAILY gabapentin 100 mg PO TID levalbuterol tartrate 45 mcg/actuation (Xopenex HFA) 2 puffs PO Q6H PRN 30 days lidocaine 5% (Lidoderm) 1 patch topical DAILY loratadine (Claritin) 10 mg PO DAILY metformin 500 mg PO DAILY multivitamin 1 tab PO DAILY nebulizers As directed nicotine (polacrilex) 4 mg PO DAILY pantoprazole 40 mg PO DAILY pseudoephedrine HCl ER (Sudafed 12 Hour) 120 mg PO Q12H rosuvastatin (Crestor) 20 mg PO DAILY sertraline (Zoloft) 25 mg PO DAILY tramadol 50 mg PO Q6H PRN PFSH Medical History (Updated 11/20/22 @ 13:26 by Adonis Montana MD) Pulmonary nodules Tinnitus of right ear Right leg pain Chronic low back pain with bilateral sciatica GERD (gastroesophageal reflux disease) Anxiety CKD (chronic kidney disease) Mild persistent asthma without complication Hyperlipidemia Diabetes Peripheral neuropathy HIV disease COPD (chronic obstructive pulmonary disease) Atelectasis of right lung Social History Alcohol intake: former Patient Tobacco Use Status: Current everyday Tobacco user Cigarette Packs Per Day: 1 Cigarettes Per Day: 3 Years Smoked: since 16 years old Physical Exam Vital Signs: BMI result Body Mass Index 24.2 Const Other: Well-nourished well-developed very friendly female awake alert and oriented x3 in no acute distress Extrem Other: Bilateral upper extremity examination shows good capillary refill, no skin lesions noted, normal sensation light touch Left shoulder examination shows decreased active and passive range of motion when compared to her right shoulder, 4+ out of 5 strength with supraspinatus testing, positive impingement signs, tenderness over her acromioclavicular joint, no instability Office Procedures Joint Injection/Drain Joint Injection/Drain Primary Site: left shoulder Prep: site was prepped using aseptic technique Injected: 40 mg of, Kenalog and 1% plain lidocaine Procedure: The patient tolerated the procedure well Coding 49290 - Large joint Procedure code (CPT) selection complete Results Reviewed Results Reviewed: 11/20/22 13:11 Lidocaine HCl 2 % MPF [Xylocaine 2 % MPF] 5 ml .ROUTE .STK-MED ONE Triamcinolone Acetonide [Kenalog-40] 40 mg .ROUTE .STK-MED ONE X-rays of the patient's left shoulder show severe acromioclavicular joint narrowing, a type 3 acromion, no acute bony abnormalities Assessment & Plan Assessment & Plan (1) Impingement syndrome of left shoulder: Code(s): M75.42 - Impingement syndrome of left shoulder Plan: Ms. aLmberto Rucker presents with left shoulder pain and stiffness due to impingement syndrome, acromioclavicular joint arthritis and adhesive capsulitis. I had a lengthy discussion with the patient regarding the treatment options. She wishes to hold off on surgery for as long as possible. I agree with this plan. The risks and benefits of a left shoulder cortisone injection were discussed at length with the patient. The patient wished to proceed. She tolerated the injection well. She does not wish to go to formal physical therapy. She is encouraged to continue with her home stretching program to prevent further stiffness. She will contact me prior to her follow-up appointment in 2-3 months should any questions or concerns arise. Feel free to call me at any time should questions regarding her orthopedic management arise. I spent 22 minutes in reviewing the patient's records and imaging studies, seeing the patient and documenting in the medical record. Orders: Orders AMB Joint Injection/Aspiration Today M75.42 - Impingement syndrome of left shoulder Coding Level of Care Code New Pt Level 2 (69457) Diagnoses Impingement syndrome of left shoulder M75.42 CPT Codes Coding - 85522 Large joint: 83758 - Large joint ([id number])
== END 2022-11-20 13:23 | disposition home or self-care (01) ==
PROVIDERS: PCP Family Medicine; Visit Provider Orthopaedic Surgery
DX: M75.42 Impingement syndrome of left shoulder (principal)
CPT/HCPCS: 20610; 99204

== ENCOUNTER → 2022-11-20 12:48 | Outpatient (BNVA) | payer OTHER, SELFPAY | PROVIDERS: PCP Family Medicine; Visit Provider Orthopaedic Surgery | DX: M75.42 Impingement syndrome of left shoulder (principal) | CPT/HCPCS: 20610; J3301 ==

== ENCOUNTER 2022-12-19 09:10 | Outpatient (AMB) | payer OTHER, SELFPAY ==
--- NOTE | 2022-12-19 09:23 | MHC.OFFVIS ---
Intake Intake Visit Reasons: OV-LT shoulder pain Intake Note: This is a 67 year old female who presents with complaints of progressively worsening left shoulder pain and stiffness. She describes her pain as sharp in nature. Her pain and stiffness have gotten worse over the last few years in spite of continued non operative treatments. She has done physical therapy for 12 weeks over the last 6 months which aggravated her pain. She has also had cortisone injections which gave her minimal relief. She has tried Tylenol and anti-inflammatory medicines which gave her only mild relief. The patient states she has difficulty lifting her left hand above shoulder height. Allergies No Known Allergies [No Known Allergies*] Allergy (Verified 12/19/22 09:31) Medication List - Last Reconciled 12/19/22 by Lindsey Moreira RN [id number]-btxwmvswuhlb-isxqegh 600-50-300 mg (Triumeq) 1 tab PO DAILY acetaminophen 500 mg PO Q6H PRN albuterol sulfate 90 mcg/actuation 2 puffs inhalation Q4-6H PRN albuterol sulfate mg inhalation amitriptyline 25 mg PO BEDTIME aspirin 81 mg PO DAILY fenofibrate 160 mg PO DAILY fluticasone propionate 50 mcg/actuation (Flonase Allergy Relief) 1 spray intranasal DAILY vnjryiyeeun-ikdnjlpeu-ybnfasyd 100-62.5-25 mcg (Trelegy Ellipta) 1 ea inhalation DAILY gabapentin 100 mg PO TID levalbuterol tartrate 45 mcg/actuation (Xopenex HFA) 2 puffs PO Q6H PRN 30 days lidocaine 5% (Lidoderm) 1 patch topical DAILY loratadine (Claritin) 10 mg PO DAILY metformin 500 mg PO DAILY multivitamin 1 tab PO DAILY nebulizers As directed nicotine (polacrilex) 4 mg PO DAILY pantoprazole 40 mg PO DAILY pseudoephedrine HCl ER (Sudafed 12 Hour) 120 mg PO Q12H rosuvastatin (Crestor) 20 mg PO DAILY sertraline (Zoloft) 25 mg PO DAILY tramadol 50 mg PO Q6H PRN PFSH Medical History (Updated 11/20/22 @ 13:26 by Adonis Montana MD) Pulmonary nodules Tinnitus of right ear Right leg pain Chronic low back pain with bilateral sciatica GERD (gastroesophageal reflux disease) Anxiety CKD (chronic kidney disease) Mild persistent asthma without complication Hyperlipidemia Diabetes Peripheral neuropathy HIV disease COPD (chronic obstructive pulmonary disease) Atelectasis of right lung Social History Alcohol intake: former Patient Tobacco Use Status: Current everyday Tobacco user Cigarette Packs Per Day: 1 Cigarettes Per Day: 3 Years Smoked: since 16 years old Physical Exam Const Other: Well-nourished well-developed very friendly female awake alert and oriented x3 in no acute distress Extrem Other: Bilateral upper extremity examination shows good capillary refill, no skin lesions noted, normal sensation light touch Left shoulder examination shows decreased active and passive range of motion when compared to her right shoulder, 4+ out of 5 strength with supraspinatus testing, positive impingement signs, tenderness over her acromioclavicular joint, no instability Results Reviewed Results Reviewed: X-rays of the patient's left shoulder show severe acromioclavicular joint narrowing, a type 2 acromion, no acute bony abnormalities Assessment & Plan Assessment & Plan (1) Impingement syndrome of left shoulder: Code(s): M75.42 - Impingement syndrome of left shoulder Plan: Ms. Lamberto Rucker presents with progressively worsening left shoulder pain and stiffness due to impingement syndrome, acromioclavicular joint arthritis and adhesive capsulitis. I had a lengthy discussion with the patient regarding the treatment options. At this point she has failed continued non operative treatments. The risks and benefits of left shoulder surgery were discussed at length with the patient. The patient wishes to proceed with surgery. Surgery will most likely involve left shoulder diagnostic arthroscopy with distal clavicle excision, acromioplasty, capsular release and manipulation. The patient will contact my office to pick a surgery date. She will follow-up as instructed. Feel free to call me at any time should questions regarding her orthopedic management arise. I spent 22 minutes in reviewing the patient's records and imaging studies, seeing the patient and documenting in the medical record. Coding Level of Care Code Est Pt Level 2 (98880) Diagnoses Impingement syndrome of left shoulder M75.42
== END 2022-12-19 10:14 | disposition home or self-care (01) ==
PROVIDERS: PCP Family Medicine; Visit Provider Orthopaedic Surgery
DX: M75.42 Impingement syndrome of left shoulder (principal)
CPT/HCPCS: 99212

== ENCOUNTER → 2022-12-19 09:10 | Outpatient (BNVA) | payer OTHER, SELFPAY | PROVIDERS: PCP Family Medicine; Visit Provider Orthopaedic Surgery | DX: M75.42 Impingement syndrome of left shoulder (principal) | CPT/HCPCS: 99212 ==

== ENCOUNTER 2022-12-24 13:12 | Outpatient (REF) | payer OTHER, SELFPAY ==
[2022-12-24 16:26] LABS: Appearance Urine Clear; Color Urine Yellow; Glucose Urine UA Negative (Negative); Leukocyte Esterase Urine Negative (Negative); Nitrite Urine Negative (Negative); PH 5.5 (5.0-9.0); Specific Gravity - Urine 1.025 (1.005-1.025); Urine Blood Negative (Negative); Urine Ketones Negative (Negative); Urine Protein Negative (Neg-Trace)
[2022-12-24 16:33] LABS: Microalbum/Creatinine Ratio Ur 8.9 ug/mg cr (<30); Total Protein Urine Random 8 mg/dL (<12)
[2022-12-24 16:40] LABS: Anion Gap 21 (12-20); Blood Urea Nitrogen 17 mg/dL (9-16); Carbon Dioxide 24 mmol/L (22-29); Chloride 104 mmol/L (96-108); Estimated Glomerular Filt Rate > 60; Potassium 4.4 mmol/L (3.3-5.1); Sodium 145 mmol/L (135-145)
[2022-12-24 17:01] LABS: Bacteria Urine None Seen (None Seen); Hyaline Casts Urine 0-2 /LPF (0-2); Squamous Epithelial Cell Urine 0-2 /HPF (0-2); WBC Urine 0-5 /HPF (0-5)
== END 2022-12-24 13:13 | disposition home or self-care (01) ==
LOC: HO.HHCL 13:12
PROVIDERS: Visit Provider Internal Medicine Nephrology
DX: E11.21 Type 2 diabetes mellitus with diabetic nephropathy (principal); E11.22 Type 2 diabetes mellitus with diabetic chronic kidney disease; N18.2 Chronic kidney disease, stage 2 (mild)
CPT/HCPCS: 36415; 80051; 81001; 82043; 82310; 82565; 82570; 84156; 84520

== ENCOUNTER 2023-01-06 07:11 | Outpatient (REF) | payer OTHER, SELFPAY ==
--- NOTE | ~2023-01-06 | CT_ITS ---
EXAMINATION: CT CHEST WITHOUT CONTRAST CLINICAL INFORMATION: Other nonspecific abnormal finding of lung field. COMPARISON: CT chest 09/17/2021: Right lower lobe posterior basal segment patchy opacity atelectasis/developing infiltrate. TECHNIQUE: Multidetector volumetric CT imaging of the chest was done. Axial MIP volume rendering provided. Sagittal and coronal reformatted images were obtained. This CT examination was performed using dose optimization techniques as appropriate, variously including the following: *Automated exposure control *Adjustment of mA and/or kV according to patient size (this includes techniques or standardized protocols for targeted exams where dose is matched to indication/reason for exam; i.e. extremities or head) *Use of iterative reconstruction technique DLP: 145 mGy-cm FINDINGS: LUNGS: There is worsening of the area of atelectasis seen at the right lung base which now appears more as an area of chronic infiltrate/atelectasis (7:443). There are 2 small lung nodules present, the largest measuring 3 mm in the right lower lobe (7:287) with an adjacent 2 mm nodule (7:286) which are new when compared to the prior study. A few other even smaller lung nodules are seen. MEDIASTINUM: Thyroid appears unremarkable. There are some small mediastinal lymph nodes but no mediastinal or hilar lymphadenopathy. CORONARY ARTERY CALCIFICATION: Moderate. PLEURA: There is no pleural effusion. No pleural mass or thickening. AXILLA: No lymphadenopathy. UPPER ABDOMEN: Water density left adrenal mass is partially visualized and unchanged consistent with a benign adenoma. OSSEOUS STRUCTURES: Unremarkable. CT/CT chest wo IV con IMPRESSION: 1. Worsening of right lower lobe atelectasis/infiltrate. 2. New small lung nodules, the largest measuring 3 mm. Per the 2017 revised Fleischner Society guidelines, no follow-up needed if patient is low-risk (and has no known or suspected primary neoplasm). Non-contrast chest CT can be considered in 12 months if patient is high-risk. 3. Stable left adrenal adenoma. Fleischner guidelines were followed.
== END 2023-01-06 07:12 | disposition home or self-care (01) ==
LOC: HO.CT 07:11
PROVIDERS: PCP Family Medicine; Visit Provider Hospitalist
DX: R91.8 Other nonspecific abnormal finding of lung field (principal)
CPT/HCPCS: 71250

== ENCOUNTER 2023-01-21 09:51 | Outpatient (AMB) | payer OTHER, SELFPAY ==
--- NOTE | 2023-01-21 10:19 | A.OFFVIS_ITS ---
Intake Vital Signs 01/21/23 10:25 Height 4 ft 11 in Weight 120 lb BMI 24.2 Intake Visit Reasons: Pre-Lt Shld Intake Note: This is a 67 year old female who presents with complaints of progressively worsening left shoulder pain and stiffness. She describes her pain as sharp in nature. Her pain and stiffness have gotten worse over the last few years in spite of continued non operative treatments. She has done physical therapy for 12 weeks over the last 6 months which aggravated her pain. She has also had cortisone injections which gave her minimal relief. She has tried Tylenol and anti-inflammatory medicines which gave her only mild relief. The patient states she has difficulty lifting her left hand above shoulder height. Pain management agreement reviewed and signed. Legal Advisor Name: Gracie ID#[id number] Allergies No Known Allergies [No Known Allergies*] Allergy (Verified 01/21/23 10:22) Medication List - Last Reconciled 01/21/23 by Adonis Montana MD [id number]-ssidbsipgwsr-mlqcyhf 600-50-300 mg (Triumeq) 1 tab PO DAILY acetaminophen 500 mg PO Q6H PRN albuterol sulfate 90 mcg/actuation 2 puffs inhalation Q4-6H PRN albuterol sulfate mg inhalation amitriptyline 25 mg PO BEDTIME aspirin 81 mg PO DAILY fenofibrate 160 mg PO DAILY fluticasone propionate 50 mcg/actuation (Flonase Allergy Relief) 1 spray intranasal DAILY gufhgtwongf-dapgjqzys-unnqtmmh 100-62.5-25 mcg (Trelegy Ellipta) 1 ea inhalation DAILY gabapentin 100 mg PO TID levalbuterol tartrate 45 mcg/actuation (Xopenex HFA) 2 puffs PO Q6H PRN 30 days lidocaine 5% (Lidoderm) 1 patch topical DAILY loratadine (Claritin) 10 mg PO DAILY metformin 500 mg PO DAILY multivitamin 1 tab PO DAILY nebulizers As directed nicotine (polacrilex) 4 mg PO DAILY pantoprazole 40 mg PO DAILY pseudoephedrine HCl ER (Sudafed 12 Hour) 120 mg PO Q12H rosuvastatin (Crestor) 20 mg PO DAILY sertraline (Zoloft) 25 mg PO DAILY tramadol 50 mg PO Q6H PRN PFSH Medical History (Updated 11/20/22 @ 13:26 by Adonis Montana MD) Pulmonary nodules Tinnitus of right ear Right leg pain Chronic low back pain with bilateral sciatica GERD (gastroesophageal reflux disease) Anxiety CKD (chronic kidney disease) Mild persistent asthma without complication Hyperlipidemia Diabetes Peripheral neuropathy HIV disease COPD (chronic obstructive pulmonary disease) Atelectasis of right lung Alcohol intake: former Patient Tobacco Use Status: Current everyday Tobacco user Cigarette Packs Per Day: 1 Cigarettes Per Day: 3 Years Smoked: since 16 years old Physical Exam Vital Signs: BMI result Body Mass Index 24.2 Const Other: Well-nourished well-developed very friendly female awake alert and oriented x3 in no acute distress Lungs - clear to auscultation bilaterally with symmetric expansion Cardiovascular exam - regular rate and rhythm Abdominal exam - soft nontender nondistended Extrem Other: Bilateral upper extremity examination shows good capillary refill, no skin lesions noted, normal sensation light touch Left shoulder examination shows decreased active and passive range of motion when compared to her right shoulder, 4+ out of 5 strength with supraspinatus testing, positive impingement signs, tenderness over her acromioclavicular joint, no instability Results Reviewed Results Reviewed: X-rays of the patient's left shoulder show severe acromioclavicular joint narrowing, a type 2 acromion, no acute bony abnormalities Assessment & Plan Assessment & Plan (1) Impingement syndrome of left shoulder: Code(s): M75.42 - Impingement syndrome of left shoulder Plan Ms. Lamberto Rucker presents with progressively worsening left shoulder pain and stiffness due to impingement syndrome, acromioclavicular joint arthritis and adhesive capsulitis. I had a lengthy discussion with the patient regarding the treatment options. This point she has failed continued non operative treatments. The risks and benefits of left shoulder surgery were discussed at length with the patient the patient wishes to proceed with surgery. Surgery will most likely involve left shoulder diagnostic arthroscopy with distal clavicle excision, acromioplasty, capsular release and manipulation under anesthesia. The patient will be given a prescription for Percocet at the time of her surgery. She will follow-up as instructed. Feel free to call me at any time should questions regarding her orthopedic management arise. I spent 22 minutes in reviewing the patient's records and imaging studies, seeing the patient and documenting in the medical record. Coding Level of Care Code Est Pt Level 2 (16816) Diagnoses Impingement syndrome of left shoulder M75.42
[2023-01-21 10:25] VITALS: BMI 24.2
== END 2023-01-21 10:53 | disposition home or self-care (01) ==
PROVIDERS: PCP Family Medicine; Visit Provider Orthopaedic Surgery
DX: M75.42 Impingement syndrome of left shoulder (principal)
CPT/HCPCS: 99212

== ENCOUNTER → 2023-01-21 09:51 | Outpatient (BNVA) | payer OTHER, SELFPAY | PROVIDERS: PCP Family Medicine; Visit Provider Orthopaedic Surgery | DX: M75.42 Impingement syndrome of left shoulder (principal) | CPT/HCPCS: 99212 ==

== ENCOUNTER 2023-01-23 14:43 | Outpatient (AMB) | payer OTHER, SELFPAY ==
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
[2023-01-23 15:13] VITALS: BP 110/70; PULSE 86; O2SAT 95; BMI 24.0
== END 2023-01-23 15:23 | disposition home or self-care (01) ==
PROVIDERS: PCP Family Medicine; Visit Provider Hospitalist
DX: Z01.811 Encounter for preprocedural respiratory examination (principal); J44.1 Chronic obstructive pulmonary disease with (acute) exacerbation; J98.11 Atelectasis; R91.8 Other nonspecific abnormal finding of lung field
CPT/HCPCS: 99214

== ENCOUNTER → 2023-01-23 14:43 | Outpatient (BNVA) | payer OTHER, SELFPAY | PROVIDERS: PCP Family Medicine; Visit Provider Hospitalist | DX: Z01.811 Encounter for preprocedural respiratory examination (principal); J44.1 Chronic obstructive pulmonary disease with (acute) exacerbation; J98.11 Atelectasis; R91.8 Other nonspecific abnormal finding of lung field | CPT/HCPCS: 99212 ==

== ENCOUNTER 2023-01-31 07:01 | Day surgery (SDC) | payer OTHER, SELFPAY ==
--- NOTE | 2023-01-22 | ECG_ITS ---
Test Reason : PRE OP Blood Pressure : / mmHG Vent. Rate : 093 BPM Atrial Rate : 093 BPM P-R Int : 146 ms QRS Dur : 068 ms QT Int : 348 ms P-R-T Axes : 056 065 068 degrees QTc Int : 432 ms Normal sinus rhythm Low voltage QRS Nonspecific ST abnormality Abnormal ECG When compared with ECG of 09-MAR-2014 14:49, No significant change was found Referred By: Varsha Smith Electronically Signed By:RUBI ESTEVEZ MD
[2023-01-22 13:33] VITALS: BMI 24.0
[2023-01-22 13:38] VITALS: BP 124/70; PULSE 96; RESP 19; O2SAT 94
--- NOTE | 2023-01-22 13:48 | HO.ANESPROP2 ---
Documented by User: Varsha Smith NP 01/30/23 11:48 HPI - Anesthesia Eval Consult details Narrative: 67yo F for Left Shoulder Arthroscopy, distal clavicle excision, acromioplasty,capsular release manipulation, 01/31/23 [address] for CKD St 2 in the setting of DM/HIV. Last office visit 12/2022. Stable creat. OK for 1 year f/u Follows [facility] pulmo. Abnormal chest CT 01/06/23. Per Dr Asher office visit 12/2022: Clinically she is medically optimized and we will also pre-treat her with augmentin. No recent illness No CP TIA 2021. Right hand shaking only residual DM. FBS ~100 COPD/Asthma. Stable with inhaler. Levalbuterol ~1-2 x daily CKD. Follows Dr Carter Hx of trach and G-tube for ~ 1 year in 1999 in [place] d/t respiratroy failure. Pt unsure of any further info. Smoker PMFSH Active Problems Active Problems: All Active Problems (Updated 01/22/23 @ 13:11 by Malissa Mckeon RN) Impingement syndrome of left shoulder (Acute) Leucocytosis (Chronic) Pulmonary nodules (Acute) COPD (chronic obstructive pulmonary disease) (Acute) Atelectasis of right lung (Acute) Past Medical History Medical History Tremor History of prescribed enteral nutrition feeding Back pain TIA (transient ischemic attack) Pulmonary nodules Tinnitus of right ear Right leg pain Chronic low back pain with bilateral sciatica GERD (gastroesophageal reflux disease) Anxiety CKD (chronic kidney disease) Mild persistent asthma without complication Hyperlipidemia Diabetes Peripheral neuropathy HIV disease COPD (chronic obstructive pulmonary disease) Atelectasis of right lung Surgical History Surgical History Hx of tracheostomy Social History Social History Are you a primary wound care physician to a significant other at home: No 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 If so, by whom?: No Advance Directives: No Advance Directives Information Provided: Yes Advance Directives on File: No Recently lost weight without trying: No Eating poorly because of decreased appetite: No Nutrition Risks: No Nutritional Risk Patient : No : No Poor oral hygiene: Yes (missing teeth upper and lower) Meds Allergies Allergy/AdvReac Type Severity Reaction Status Date / Time No Known Allergies Allergy Verified 01/31/23 07:41 [No Known Allergies*] Home Medications Medication Instructions Recorded Confirmed Last Taken Type abacavir 600 mg-dolutegravir 50 1 tab PO DAILY 05/19/20 01/21/23 Unknown History mg-lamivudine 300 mg tablet (Triumeq) acetaminophen 500 mg capsule 500 mg PO Q6H PRN Pain 05/19/20 01/21/23 Unknown History amitriptyline 25 mg tablet 25 mg PO BEDTIME 05/19/20 01/21/23 Unknown History aspirin 81 mg tablet,delayed 81 mg PO DAILY 05/19/20 01/21/23 Unknown History release fenofibrate 160 mg tablet 160 mg PO DAILY 05/19/20 01/21/23 Unknown History fluticasone propionate 50 1 spray intranasal DAILY 05/19/20 01/21/23 Unknown History mcg/actuation nasal spray,suspension (Flonase Allergy Relief) gabapentin 100 mg capsule 100 mg PO TID 05/19/20 01/21/23 Unknown History lidocaine 5 % topical patch 1 patch topical DAILY 05/19/20 01/21/23 Unknown History (Lidoderm) loratadine 10 mg tablet (Claritin) 10 mg PO DAILY 05/19/20 01/21/23 Unknown History metformin 500 mg tablet 500 mg PO DAILY 05/19/20 01/21/23 Unknown History multivitamin 1 tab PO DAILY 05/19/20 01/21/23 Unknown History pantoprazole 40 mg granules 40 mg PO DAILY 05/19/20 01/21/23 Unknown History delayed-release for susp in packet pseudoephedrine HCl 120 mg 120 mg PO Q12H 05/19/20 01/21/23 Unknown History tablet,extended release (Sudafed 12 Hour) rosuvastatin 20 mg tablet (Crestor) 20 mg PO DAILY 05/19/20 01/21/23 Unknown History sertraline 25 mg tablet (Zoloft) 25 mg PO DAILY 05/19/20 01/21/23 Unknown History fluticasone fur. 100 mcg-umeclid 1 ea inhalation DAILY 12/27/21 01/21/23 01/31/23 06:00 History 62.5 mcg-vilant 25 mcg inhalat.powder (Trelegy Ellipta) albuterol sulfate 2.5 mg/3 mL 2.5 mg inhalation DAILY 08/05/22 01/22/23 Unknown History (0.083 %) solution for nebulization nebulizers 08/05/22 01/21/23 Unknown History tramadol 50 mg tablet 50 mg PO Q6H PRN Pain 08/05/22 01/21/23 Unknown History levalbuterol tartrate 45 2 puff inhalation Q6H PRN wheezing 01/22/23 01/22/23 Unknown History mcg/actuation aerosol inhaler Exam Height,Weight and Vital Signs: Height 4 ft 11 in Weight 53.977 kg Last Vital Signs Pulse 96 01/22/23 13:38 Resp 19 01/22/23 13:38 BP 124/70 01/22/23 13:38 Pulse Ox 94 01/22/23 13:38 O2 Del Method Room Air 01/22/23 13:38 Pertinent Lab Results Pertinent Lab Results: Laboratory Tests 08/29/21 12/24/22 10:41 13:25 WBC 11.2 H Hgb 14.9 Hct 44.0 Plt Count 267 Sodium 145 Potassium 4.4 Chloride 104 Carbon Dioxide 24 BUN 17 H Creatinine 0.93 Narrative Narrative: EKG 12/2022 Vent. Rate : 093 BPM Atrial Rate : 093 BPM P-R Int : 146 ms QRS Dur : 068 ms QT Int : 348 ms P-R-T Axes : 056 065 068 degrees QTc Int : 432 ms Normal sinus rhythm Low voltage QRS Nonspecific ST abnormality Abnormal ECG When compared with ECG of 09-MAR-2014 14:49, No significant change was found CT chest wo IV con 12/2022 IMPRESSION: 1. Worsening of right lower lobe atelectasis/infiltrate. 2. New small lung nodules, the largest measuring 3 mm. Per the 2017 revised Fleischner Society guidelines, no follow-up needed if patient is low-risk (and has no known or suspected primary neoplasm). Non-contrast chest CT can be considered in 12 months if patient is high-risk. 3. Stable left adrenal adenoma. ECHO 2021 Conclusions: - The left ventricular systolic function is normal. The calculated ejection fraction is 69% by biplane method. - No obvious valvular pathology seen on this study. Airway Mallampati Class: II TM Dist: >3cm Neck ROM: Full Loose/Missing/Broken Teeth: Yes (MIssing teeth throughout, remaining intact) Heart: RRR Lungs: R side coarse but clears with cough L CTA Assessment and Plan Assessment Anesthesia Assessment: Anesthesia Plan Discussed, Smoking Cess. Discussed and PAT Visit Documented by User: Fuad Louie MD 01/31/23 07:56 PMFSH Past Medical History Medical History Tremor History of prescribed enteral nutrition feeding Back pain TIA (transient ischemic attack) Pulmonary nodules Tinnitus of right ear Right leg pain Chronic low back pain with bilateral sciatica GERD (gastroesophageal reflux disease) Anxiety CKD (chronic kidney disease) Mild persistent asthma without complication Hyperlipidemia Diabetes Peripheral neuropathy HIV disease COPD (chronic obstructive pulmonary disease) Atelectasis of right lung Family History Family history of problems with anesthesia: No Surgical History Surgical History Hx of tracheostomy History of Problems with Anesthesia: No Social History Social History Are you a primary wound care physician to a significant other at home: No 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 If so, by whom?: No Advance Directives: No Advance Directives Information Provided: Yes Advance Directives on File: No Recently lost weight without trying: No Eating poorly because of decreased appetite: No Nutrition Risks: No Nutritional Risk Patient : No : No Poor oral hygiene: Yes (missing teeth upper and lower) Meds Allergies Allergy/AdvReac Type Severity Reaction Status Date / Time No Known Allergies Allergy Verified 01/31/23 07:41 [No Known Allergies*] Home Medications Medication Instructions Recorded Confirmed Last Taken Type abacavir 600 mg-dolutegravir 50 1 tab PO DAILY 05/19/20 01/21/23 Unknown History mg-lamivudine 300 mg tablet (Triumeq) acetaminophen 500 mg capsule 500 mg PO Q6H PRN Pain 05/19/20 01/21/23 Unknown History amitriptyline 25 mg tablet 25 mg PO BEDTIME 05/19/20 01/21/23 Unknown History aspirin 81 mg tablet,delayed 81 mg PO DAILY 05/19/20 01/21/23 Unknown History release fenofibrate 160 mg tablet 160 mg PO DAILY 05/19/20 01/21/23 Unknown History fluticasone propionate 50 1 spray intranasal DAILY 05/19/20 01/21/23 Unknown History mcg/actuation nasal spray,suspension (Flonase Allergy Relief) gabapentin 100 mg capsule 100 mg PO TID 05/19/20 01/21/23 Unknown History lidocaine 5 % topical patch 1 patch topical DAILY 05/19/20 01/21/23 Unknown History (Lidoderm) loratadine 10 mg tablet (Claritin) 10 mg PO DAILY 05/19/20 01/21/23 Unknown History metformin 500 mg tablet 500 mg PO DAILY 05/19/20 01/21/23 Unknown History multivitamin 1 tab PO DAILY 05/19/20 01/21/23 Unknown History pantoprazole 40 mg granules 40 mg PO DAILY 05/19/20 01/21/23 Unknown History delayed-release for susp in packet pseudoephedrine HCl 120 mg 120 mg PO Q12H 05/19/20 01/21/23 Unknown History tablet,extended release (Sudafed 12 Hour) rosuvastatin 20 mg tablet (Crestor) 20 mg PO DAILY 05/19/20 01/21/23 Unknown History sertraline 25 mg tablet (Zoloft) 25 mg PO DAILY 05/19/20 01/21/23 Unknown History fluticasone fur. 100 mcg-umeclid 1 ea inhalation DAILY 12/27/21 01/21/23 01/31/23 06:00 History 62.5 mcg-vilant 25 mcg inhalat.powder (Trelegy Ellipta) albuterol sulfate 2.5 mg/3 mL 2.5 mg inhalation DAILY 08/05/22 01/22/23 Unknown History (0.083 %) solution for nebulization nebulizers 08/05/22 01/21/23 Unknown History tramadol 50 mg tablet 50 mg PO Q6H PRN Pain 08/05/22 01/21/23 Unknown History levalbuterol tartrate 45 2 puff inhalation Q6H PRN wheezing 01/22/23 01/22/23 Unknown History mcg/actuation aerosol inhaler Assessment and Plan Final Anesthetic Review Family History of Problems with Anesthesia: No History of Problems with Anesthesia: No NPO: Yes ASA Class: IV Final Preanesthetic Review: No Changes in Pt Med Stat, Meds/Allgs Chart Reviewed, Consent Obtained/Reviewed and Anes Risks/Benef Reviewed Patient Risk: High Procedure Risk: Intermediate Anesthetic Plan Anesthetic Plan: GA, Regional Block and Agree w/ Assess. and Plan Disposition: Standard PACU
[2023-01-31 07:41] VITALS: BP 121/67; PULSE 83; RESP 16; TEMP 36.7; O2SAT 96
[2023-01-31] MEDS: Lactated Ringers 1,000 ML 100 ML IVCONT (07:52)
[2023-01-31 08:09] LABS: Glucose, Whole Blood 130 mg/dL (60-115)
[2023-01-31 11:00] VITALS: BP 103/42; PULSE 70; RESP 14; TEMP 37; O2SAT 99
[2023-01-31 11:05] VITALS: BP 113/45; PULSE 71; RESP 16; O2SAT 95
[2023-01-31 11:10] VITALS: BP 113/66; PULSE 72; RESP 16; O2SAT 94
[2023-01-31 11:15] VITALS: BP 110/69; PULSE 70; RESP 16; O2SAT 95
--- NOTE | 2023-01-31 11:19 | P.BOP_ITS ---
Brief Operative Note Date of Service: 01/31/23 Pre-op diagnosis: Left shoulder impingement syndrome, left shoulder acromioclavicular joint arthritis, left shoulder adhesive capsulitis Post-op diagnosis: same Procedure: Left shoulder diagnostic arthroscopy with left shoulder arthroscopic distal clavicle excision, left shoulder arthroscopic acromioplasty, left shoulder arthroscopic anterior capsular release, left shoulder manipulation under anesthesia Implants: none Surgeon: Adonis Montana MD Anesthesia: GLMA and regional Was an Lotus Notes Developer used for this Procedure?: No Estimated blood loss (mL): 10 Pathology: none sent Condition: stable Disposition: PACU
--- NOTE | 2023-01-31 11:20 | P.OP_ITS ---
Operative Note Operative Note Date of Service: 01/31/23 Narrative: After the patient was identified as Deyanira Rucker and their left shoulder was initialed by myself the patient was brought to the holding area where a left shoulder interscalene regional block was performed by the anesthesiologist in routine fashion. The patient was then brought to the operating room where general anesthesia was induced by the anesthesiologist in routine fashion. The patient was given 2 g of IV Ancef preoperatively for infection prophylaxis. Examination under anesthesia of the patient's left shoulder showed decreased range of motion when compared to the right shoulder. The patient's left s houlder had forward flexion to 120 degrees compared to 170 degrees, external rotation to 40 degrees compared to 60 degrees, and internal rotation to 40 degrees compared to 50 degrees. The patient was gently positioned in the beach chair position with all bony prominences well padded. The patient's left shoulder region and upper extremity were prepped and draped in sterile fashion. A formal time-out was completed. A #11 scalpel blade was used to make a posterior portal 2 cm inferior and 1 cm medial to the posterolateral corner of the acromion. Blunt trocar technique was used to enter the glenohumeral joint in routine fashion. An anterior portal was made just lateral to the coracoid process after proper positioning was confirmed using a spinal needle. Diagnostic arthroscopy showed minimal degenerative changes of the glenoid and humeral head articular surfaces. There was no evidence of rotator cuff tearing. There was no evidence of injury to the biceps tendon or its insertion onto the glenoid. There was inflammation of the anterior joint capsule consistent with adhesive capsulitis. The ArthroCare Wand was then used to perform an anterior capsular release between the inferior border of the biceps tendon and the superior border of the subscapularis tendon. The arthroscope was then placed from the posterior portal into the subacromial space. A lateral portal was made 2 fingerbreadths lateral to the anterior lateral corner of the acromion. The ArthroCare Wand was used to ablate soft tissues along the undersurface of the acromion as well as to excise the coracoacromial ligament. There was a sharp spur along the undersurface of the acromion which was removed using the hooded bur. The arthroscope was then placed into the lateral portal and the acromioplasty was completed with the bur in the posterior portal using the posterior aspect of the acromion as a cutting block. The ArthroCare Wand was then brought in through the anterior portal and was used to ablate soft tissues along the acromioclavicular joint and distal clavicle. The posterior and superior ligamentous structures were left intact. A distal clavicle excision of 8 mm was performed using the hooded bur. Any remaining bursal tissue was removed using the arthroscopic shaver. The subacromial space was irrigated and then drained. All arthroscopic instruments were removed. A gentle manipulation under anesthesia was then performed. Full passive range of motion was easily obtained. The 3 portals were closed with 3-0 nylon interrupted suture. The subacromial space was injected with Marcaine. Dry sterile dressing was placed over all incisions. The patient's left upper extremity was placed into a sling. The patient was awoken and extubated in the operating room. The patient was transferred to the recovery room in stable condition.
[2023-01-31] MEDS: cefTRIAXone sodium 1 GM in 0.9 % Sodium Chloride 50 ML IV (11:22)
[2023-01-31 11:30] VITALS: BP 111/70; PULSE 70; RESP 18; TEMP 36.4; O2SAT 98
== END 2023-01-31 12:15 | disposition home or self-care (01) ==
PROVIDERS: PCP Family Medicine; Visit Provider Orthopaedic Surgery
PROC: (CPT 29805; principal; 2023-01-31 09:10)
DX: M75.42 Impingement syndrome of left shoulder (principal); M19.012 Primary osteoarthritis, left shoulder; M75.02 Adhesive capsulitis of left shoulder; B20 Human immunodeficiency virus [HIV] disease; E11.22 Type 2 diabetes mellitus with diabetic chronic kidney disease; N18.9 Chronic kidney disease, unspecified; E78.5 Hyperlipidemia, unspecified; J44.9 Chronic obstructive pulmonary disease, unspecified; J98.11 Atelectasis; F17.210 Nicotine dependence, cigarettes, uncomplicated; Z86.73 Personal history of transient ischemic attack (TIA), and cerebral infarction without residual deficits; Z79.84 Long term (current) use of oral hypoglycemic drugs; Z79.02 Long term (current) use of antithrombotics/antiplatelets; Z79.899 Other long term (current) drug therapy
CPT/HCPCS: 29826; 29825; 29824; 82947; 93005; J0131; J0171; J0690; J0696; J1100; J1885; J2371; J2405; J2704; J2795

== ENCOUNTER → 2023-01-31 07:01 | Outpatient (BNV) | payer OTHER, SELFPAY | PROVIDERS: PCP Family Medicine; Visit Provider Orthopaedic Surgery | DX: M75.02 Adhesive capsulitis of left shoulder (principal); M19.012 Primary osteoarthritis, left shoulder; M75.42 Impingement syndrome of left shoulder | CPT/HCPCS: 29824; 29825; 29826 ==

== ENCOUNTER 2023-02-13 11:21 | Outpatient (AMB) | payer OTHER, SELFPAY ==
--- NOTE | 2023-02-13 11:23 | A.OFFVIS_ITS ---
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 Montana. She continues to have pain in her shoulder but states having improvement in her ROM. She finds relief with oxycodone. She is doing well overall and has no concerns today. [facility] Medical History Tremor History of prescribed enteral nutrition feeding Back pain TIA (transient ischemic attack) Pulmonary nodules Tinnitus of right ear Right leg pain Chronic low back pain with bilateral sciatica GERD (gastroesophageal reflux disease) Anxiety CKD (chronic kidney disease) Mild persistent asthma without complication Hyperlipidemia Diabetes Peripheral neuropathy HIV disease COPD (chronic obstructive pulmonary disease) Atelectasis of right lung Surgical History Hx of tracheostomy Social History Are you a primary director of home care hospice to a significant other at home: No Do you presently have 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 Forward flexion to 95 degrees, external rotation to 40 degrees and internal rotation to back pocket. Results Reviewed Results Reviewed: Date of Service: 01/31/23 Pre-op diagnosis: Left shoulder impingement syndrome, left shoulder acromioclavicular joint arthritis, left shoulder adhesive capsulitis Post-op diagnosis: same Procedure: Left shoulder diagnostic arthroscopy with left shoulder arthroscopic distal clavicle excision, left shoulder arthroscopic acromioplasty, left shoulder arthroscopic anterior capsular release, left shoulder manipulation under anesthesia Implants: none Surgeon: Adonis Montana MD Assessment & Plan Assessment & Plan (1) Impingement syndrome of left shoulder: Code(s): M75.42 - Impingement syndrome of left shoulder Plan Sutures removed today, steri strips applied. She will begin a course of physical therapy to work on ROM, periscapular stabilization and RTC strengthening exercises. She will see us back in [address] Montana. I did refill her prescription of oxy today but I encouraged her to take 1 tablet every 6 hours as needed for her pain. She is content with this plan and will see us back as discussed. Medications: Changed From oxycodone Partial Fill upon patient request. 10 mg (2 x 5 mg) PO Q4H PRN 40 tabs 0RF pain To oxycodone Partial Fill upon patient request. 5 mg PO Q6H PRN 28 tabs 0RF pain 7 days Patient Instructions: Scribed for Say Parra PA-C, by Rudy Mata medical office administrator, on 02/13/2023 at 11:30 AM EST. ISay PA-C, have personally reviewed and agree with the information entered by the scribe. Coding Level of Care Code Global (56028) Diagnoses Impingement syndrome of left shoulder M75.42
== END 2023-02-13 11:36 | disposition home or self-care (01) ==
PROVIDERS: PCP Family Medicine; Visit Provider Physician Assistant
DX: M75.42 Impingement syndrome of left shoulder (principal)
CPT/HCPCS: 99024

== ENCOUNTER → 2023-02-13 11:21 | Outpatient (BNVA) | payer OTHER, SELFPAY | PROVIDERS: PCP Family Medicine; Visit Provider Physician Assistant | DX: M75.42 Impingement syndrome of left shoulder (principal) | CPT/HCPCS: 99212 ==

== ENCOUNTER 2023-02-20 11:05 | Outpatient (REF) | payer OTHER, SELFPAY ==
[2023-02-20 13:23] LABS: MANUAL DIFF FLAG NO
[2023-02-20 13:45] LABS: Basophils Absolute Auto 0.1 X10*3/uL (0.0-0.2); Basophils Percent Auto 0.5 % (0-2); Eosinophils Absolute Auto 0.1 X10*3/uL (0.0-0.4); Eosinophils Percent Auto 0.9 % (0-4); Hematocrit 44.9 % (37.0-47.0); Hemoglobin 14.9 g/dl (12.0-16.0); Imm Gran Abs Auto 0.04 X10*3/uL (0.00-0.03); Imm Gran Pct Auto 0.4 % (0.0-0.4); Lymphocytes Absolute Auto 3.3 X10*3/uL (1.2-4.9); Lymphocytes Percent Auto 31.2 % (20-40); Mean Corpuscular HGB Conc 33.2 g/dl (31.0-35.0); Mean Corpuscular Hemoglobin 33.9 pg (27.0-33.0); Mean Corpuscular Volume 102.3 fL (80.0-98.0); Mean Platelet Volume 10.9 fL (9.4-12.3); Monocytes Absolute Auto 0.7 X10*3/uL (0.1-1.2); Monocytes Percent Auto 6.9 % (2-11); Neutrophils Absolute Auto 6.3 x10*3/uL (2.0-8.3); Neutrophils Percent Auto 60.1 % (45-73); Platelet Count 298 X10*3/uL (160-400); Red Blood Count 4.39 X10*6/uL (4.20-5.50); Red Cell Distribution Width 14.1 % (11.0-16.0); White Blood Count 10.5 X10*3/uL (4.8-10.8)
[2023-02-20 13:55] LABS: Alanine Aminotransferase 16 U/L (0-31); Albumin Level 4.4 g/dL (3.5-5.0); Alkaline Phosphatase 43 U/L (39-117); Anion Gap 17 (12-20); Aspartate Amino Transferase 19 U/L (5-31); Bilirubin Total 0.2 mg/dL (0.0-1.0); Blood Urea Nitrogen 16 mg/dL (9-16); Calcium 10.7 mg/dL (8.4-10.2); Carbon Dioxide 25 mmol/L (22-29); Chloride 107 mmol/L (96-108); Estimated Glomerular Filt Rate > 60; Glucose Random 116 mg/dL (60-115); Sodium 145 mmol/L (135-145); Total Protein 7.9 g/dL (6.5-8.0)
[2023-02-21 17:54] LABS: HIV RNA PCR Qn Copies 176 copies/mL (NOT DETECTED); HIV RNA PCR Qn Log Copies 2.25 (NOT DETECTED)
[2023-02-25 07:14] LABS: Absolute CD3 Count 2308 cells/uL (840-3060); Absolute CD4 Count 1371 cells/uL (490-1740); Absolute CD8 Count 986 cells/uL (180-1170); Absolute Lymphocytes 3489 cells/uL (850-3900); CD4 CD8 Ratio 1.39 (0.86-5.00); Percent CD3 Cells 66 % (57-85); Percent CD4 Cells 39 % (30-61); Percent CD8 Cells 28 % (12-42)
== END 2023-02-20 11:06 | disposition home or self-care (01) ==
LOC: HO.HHCL 11:05
PROVIDERS: Visit Provider Internal Medicine
DX: B20 Human immunodeficiency virus [HIV] disease (principal)
CPT/HCPCS: 36415; 80053; 85025; 86359; 86360; 87536

== ENCOUNTER 2023-03-13 10:19 | Outpatient (AMB) | payer OTHER, SELFPAY ==
--- NOTE | 2023-03-13 10:23 | A.OFFVIS_ITS ---
Intake Vital Signs 03/13/23 10:25 Height 4 ft 11 in Weight 119 lb BMI 24.0 Intake Visit Reasons: PO-Lt Shld 01/31 DR Intake Note: Please refer to the other note from this same day. Allergies No Known Allergies [No Known Allergies*] Allergy (Verified 03/13/23 10:26) Medication List - Last Reconciled 03/13/23 by Adonis Montana MD [id number] 600-50-300 mg (Triumeq) 1 tab PO DAILY acetaminophen 500 mg PO Q6H PRN albuterol sulfate 2.5 mg inhalation DAILY amitriptyline 25 mg PO BEDTIME amoxicillin-pot clavulanate 875-125 mg 1 tab PO BID 10 days aspirin 81 mg PO DAILY fenofibrate 160 mg PO DAILY fluticasone propionate 50 mcg/actuation (Flonase Allergy Relief) 1 spray intranasal DAILY [id number]-cygbdroah-glythgof 100-62.5-25 mcg (Trelegy Ellipta) 1 ea inhalation DAILY gabapentin 100 mg PO TID levalbuterol tartrate 45 mcg/actuation 2 puffs inhalation Q6H PRN lidocaine 5% (Lidoderm) 1 patch topical DAILY loratadine (Claritin) 10 mg PO DAILY metformin 500 mg PO DAILY multivitamin 1 tab PO DAILY nebulizers As directed oxycodone 5 mg PO Q8H PRN pantoprazole 40 mg PO DAILY pseudoephedrine HCl ER (Sudafed 12 Hour) 120 mg PO Q12H rosuvastatin (Crestor) 20 mg PO DAILY sertraline (Zoloft) 25 mg PO DAILY tramadol 50 mg PO Q6H PRN PFSH Medical History (Updated 03/13/23 @ 10:26 by Adonis Montana MD) Tremor History of prescribed enteral nutrition feeding Back pain TIA (transient ischemic attack) Pulmonary nodules Tinnitus of right ear Right leg pain Chronic low back pain with bilateral sciatica GERD (gastroesophageal reflux disease) Anxiety CKD (chronic kidney disease) Mild persistent asthma without complication Hyperlipidemia Diabetes Peripheral neuropathy HIV disease COPD (chronic obstructive pulmonary disease) Atelectasis of right lung Surgical History Hx of tracheostomy Social History Are you a primary elderly caregiver to a significant other at home: No Do you presently have 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 Medications: Changed From oxycodone Partial Fill upon patient request. 5 mg PO Q6H 7 days PRN 28 tabs 0RF pain To oxycodone Partial Fill upon patient request. 5 mg PO Q8H PRN 30 tabs 0RF pain Coding Level of Care Code Global (14364) Diagnoses Left shoulder pain M25.512
[2023-03-13 10:25] VITALS: BMI 24.0
--- NOTE | 2023-03-13 10:25 | A.OFFVIS_ITS ---
Intake Vital Signs 03/13/23 10:25 Height 4 ft 11 in Weight 119 lb BMI 24.0 Intake Visit Reasons: PO-Lt Shld 01/31 Intake Note: Deyanira is a 67 year old female who presents for routine follow-up after undergoing left shoulder arthroscopic surgery on 01/31/2023. She reports moderate discomfort in her shoulder. She ran out of oxycodone so she is taking just Tylenol. She continues with her home physical therapy. She denies any fevers or chills. Abalone Diver Name: [id number] Allergies No Known Allergies [No Known Allergies*] Allergy (Verified 03/13/23 10:26) Medication List - Last Reconciled 03/13/23 by Adonis Montana MD [id number]-[id number] 600-50-300 mg (Triumeq) 1 tab PO DAILY acetaminophen 500 mg PO Q6H PRN albuterol sulfate 2.5 mg inhalation DAILY amitriptyline 25 mg PO BEDTIME amoxicillin-pot clavulanate 875-125 mg 1 tab PO BID 10 days aspirin 81 mg PO DAILY fenofibrate 160 mg PO DAILY fluticasone propionate 50 mcg/actuation (Flonase Allergy Relief) 1 spray intranasal DAILY ggmffyxwduc-mxzjwrjjv-nxaoignl 100-62.5-25 mcg (Trelegy Ellipta) 1 ea inhalation DAILY gabapentin 100 mg PO TID levalbuterol tartrate 45 mcg/actuation 2 puffs inhalation Q6H PRN lidocaine 5% (Lidoderm) 1 patch topical DAILY loratadine (Claritin) 10 mg PO DAILY metformin 500 mg PO DAILY multivitamin 1 tab PO DAILY nebulizers As directed oxycodone 5 mg PO Q8H PRN pantoprazole 40 mg PO DAILY pseudoephedrine HCl ER (Sudafed 12 Hour) 120 mg PO Q12H rosuvastatin (Crestor) 20 mg PO DAILY sertraline (Zoloft) 25 mg PO DAILY tramadol 50 mg PO Q6H PRN PFSH Medical History (Updated 03/13/23 @ 10:26 by Adonis Montana MD) Tremor History of prescribed enteral nutrition feeding Back pain TIA (transient ischemic attack) Pulmonary nodules Tinnitus of right ear Right leg pain Chronic low back pain with bilateral sciatica GERD (gastroesophageal reflux disease) Anxiety CKD (chronic kidney disease) Mild persistent asthma without complication Hyperlipidemia Diabetes Peripheral neuropathy HIV disease COPD (chronic obstructive pulmonary disease) Atelectasis of right lung Surgical History Hx of tracheostomy Social History Are you a primary adult live in caregiver to a significant other at home: No Do you 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) Alcohol intake: former Patient Tobacco Use Status: Current everyday Tobacco user Tobacco use type: Cigarette Cigarette Packs Per Day: 1 Cigarettes Per Day: 4 Years Smoked: since 16 years old Physical Exam Vital Signs: BMI result Body Mass Index 24.0 Extrem Other: Left shoulder examination shows that the surgical incisions are well healed, no erythema, slightly decreased range of motion when compared to her right shoulder, mild to moderate discomfort with range of motion, no instability Assessment & Plan Assessment & Plan (1) Left shoulder pain: Code(s): M25.512 - Pain in left shoulder Plan Ms. Lamberto Rucker continues to do fairly well after undergoing left shoulder arthroscopic surgery on 02/01/2020 she will continue with her formal physical therapy exercises. I did refill her prescription for oxycodone. The do's and don'ts of lifting were discussed at length with the patient. She will contact me prior to her follow-up appointment in 2 months should any questions or concerns arise. Feel free to call me at any time should questions regarding her orthopedic management arise. Medications: Changed From oxycodone Partial Fill upon patient request. 5 mg PO Q6H PRN 28 tabs 0RF pain 7 days To oxycodone Partial Fill upon patient request. 5 mg PO Q8H PRN 30 tabs 0RF pain Coding Level of Care Code Global (93609) Diagnoses Left shoulder pain M25.512
== END 2023-03-13 10:47 | disposition home or self-care (01) ==
PROVIDERS: PCP Family Medicine; Visit Provider Orthopaedic Surgery
DX: M25.512 Pain in left shoulder (principal)
CPT/HCPCS: 99024

== ENCOUNTER → 2023-03-13 10:19 | Outpatient (BNVA) | payer OTHER, SELFPAY | PROVIDERS: PCP Family Medicine; Visit Provider Orthopaedic Surgery | DX: M25.512 Pain in left shoulder (principal) | CPT/HCPCS: 99212 ==

== ENCOUNTER 2023-03-24 14:18 | Outpatient (AMB) | payer OTHER, SELFPAY ==
[2023-03-24 14:36] VITALS: PULSE 90; O2SAT 96; BMI 24.2
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
== END 2023-03-24 14:52 | disposition home or self-care (01) ==
PROVIDERS: PCP Family Medicine; Visit Provider Hospitalist
DX: J44.1 Chronic obstructive pulmonary disease with (acute) exacerbation (principal); J98.11 Atelectasis; R91.8 Other nonspecific abnormal finding of lung field
CPT/HCPCS: 99214

== ENCOUNTER → 2023-03-24 14:18 | Outpatient (BNVA) | payer OTHER, SELFPAY | PROVIDERS: PCP Family Medicine; Visit Provider Hospitalist | DX: J44.1 Chronic obstructive pulmonary disease with (acute) exacerbation (principal); J98.11 Atelectasis; R91.8 Other nonspecific abnormal finding of lung field | CPT/HCPCS: 99212 ==

== ENCOUNTER 2023-04-08 12:55 | Outpatient (AMB) | payer OTHER, SELFPAY ==
[2023-04-08 13:04] VITALS: BMI 24.2
--- NOTE | 2023-04-08 13:04 | A.OFFVIS_ITS ---
Intake Vital Signs 04/08/23 13:04 Height 4 ft 11 in Weight 120 lb BMI 24.2 Intake Visit Reasons: OV-Lt Shld 01/31 DR-follow up Intake Note: Deyanira is a 67 year old female who presents for a post operative Left shoulder on 01/31/2023 DR. Patient reports that she feels good and has no problems. She continues with her home stretching program. She does take oxycodone as needed for discomfort. Scraper Hand Name: [id number] Allergies No Known Allergies [No Known Allergies*] Allergy (Verified 04/08/23 13:12) Medication List - Last Reconciled 04/08/23 by Adonis Montana MD [id number] 600-50-300 mg (Triumeq) 1 tab PO DAILY acetaminophen 500 mg PO Q6H PRN albuterol sulfate 2.5 mg (3 mL) inhalation DAILY 30 days albuterol sulfate 90 mcg/actuation 2 inhalations inhalation Q6H PRN 30 days amitriptyline 25 mg PO BEDTIME amoxicillin-pot clavulanate 875-125 mg 1 tab PO BID 10 days aspirin 81 mg PO DAILY fenofibrate 160 mg PO DAILY fluticasone propionate 50 mcg/actuation (Flonase Allergy Relief) 1 spray intranasal DAILY afyghqjsewb-kjhbdfsjy-imaspynz 100-62.5-25 mcg (Trelegy Ellipta) 1 ea inhalation DAILY gabapentin 100 mg PO TID levalbuterol tartrate 45 mcg/actuation 2 puffs inhalation Q6H PRN lidocaine 5% (Lidoderm) 1 patch topical DAILY loratadine (Claritin) 10 mg PO DAILY metformin 500 mg PO DAILY multivitamin 1 tab PO DAILY nebulizers As directed oxycodone 5 mg PO Q12H PRN pantoprazole 40 mg PO DAILY pseudoephedrine HCl ER (Sudafed 12 Hour) 120 mg PO Q12H rosuvastatin (Crestor) 20 mg PO DAILY sertraline (Zoloft) 25 mg PO DAILY tramadol 50 mg PO Q6H PRN PFSH Medical History Tremor History of prescribed enteral nutrition feeding Back pain TIA (transient ischemic attack) Pulmonary nodules Tinnitus of right ear Right leg pain Chronic low back pain with bilateral sciatica GERD (gastroesophageal reflux disease) Anxiety CKD (chronic kidney disease) Mild persistent asthma without complication Hyperlipidemia Diabetes Peripheral neuropathy HIV disease COPD (chronic obstructive pulmonary disease) Atelectasis of right lung Surgical History Hx of tracheostomy Social History Are you a primary career development specialist to a significant other at home: No Do you presently have visiting nurse or other home services: Yes ([employer]ST[employer] 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) Alcohol intake: former Patient Tobacco Use Status: Current everyday Tobacco user Tobacco use type: Cigarette Cigarette Packs Per Day: 1 Cigarettes Per Day: 4 Years Smoked: since 16 years old Physical Exam Vital Signs: BMI result Body Mass Index 24.2 Extrem Other: Physical examination of the patient's left shoulder shows that the surgical incisions are well healed, no erythema, almost full range of motion when compared to her right shoulder, mild discomfort with resisted forward flexion, minimal discomfort with resisted internal and external rotation, no instability Assessment & Plan Assessment & Plan (1) Left shoulder pain: Code(s): M25.512 - Pain in left shoulder Plan Ms. Lamberto Rcuker continues to do very well after undergoing left shoulder arthroscopic surgery on 01/31/2023. She will continue with her home stretching program. The do's and don'ts of lifting were discussed at length with the patient. I did give her 1 final prescription for oxycodone for her discomfort. She will contact me prior to her follow-up appointment in 3 months should any questions or concerns arise. Feel free to call me at any time questions regarding her orthopedic management arise. Medications: Changed From oxycodone Partial Fill upon patient request. 5 mg PO Q12H PRN 30 tabs 0RF pain To oxycodone Partial Fill upon patient request. 5 mg PO DAILY PRN 20 tabs 0RF pain Coding Level of Care Code Global (25549) Diagnoses Left shoulder pain M25.512
== END 2023-04-08 13:46 | disposition home or self-care (01) ==
PROVIDERS: PCP Family Medicine; Visit Provider Orthopaedic Surgery
DX: M25.512 Pain in left shoulder (principal)
CPT/HCPCS: 99024

== ENCOUNTER → 2023-04-08 12:55 | Outpatient (BNVA) | payer OTHER, SELFPAY | PROVIDERS: PCP Family Medicine; Visit Provider Orthopaedic Surgery | DX: M25.512 Pain in left shoulder (principal) | CPT/HCPCS: 99212 ==

== ENCOUNTER 2023-04-24 16:20 | Outpatient (REF) | payer OTHER, SELFPAY ==
--- NOTE | ~2023-04-24 | CT_ITS ---
EXAMINATION: CT CHEST WITHOUT CONTRAST CLINICAL INFORMATION: Follow-up atelectasis and small lung nodules COMPARISON: 01/06/2023 TECHNIQUE: Multidetector volumetric CT imaging of the chest was done. Axial MIP volume rendering provided. Sagittal and coronal reformatted images were obtained. This CT examination was performed using dose optimization techniques as appropriate, variously including the following: *Automated exposure control *Adjustment of mA and/or kV according to patient size (this includes techniques or standardized protocols for targeted exams where dose is matched to indication/reason for exam; i.e. extremities or head) *Use of iterative reconstruction technique DLP: 138 mGy-cm FINDINGS: TITLE ONE TEACHER: Unremarkable LUNGS: There are mild changes of centrilobular emphysema. There is a right lower lobe 0.3 cm nodule seen on image 286 series 5. There are multiple punctate nodule seen in the right lower lobe, too small to characterize. There is right upper lobe subpleural 0.2 cm nodule seen on image 127, not seen on the previous study There is atelectasis in the right lower lobe and peribronchial thickening. MEDIASTINUM: The mediastinum is normal. CORONARY ARTERY CALCIFICATION: None visualized on this study. PLEURA: There is no pleural effusion. No pleural mass or thickening. AXILLA: No lymphadenopathy. UPPER ABDOMEN: There is left adrenal gland low-attenuation lesion measured 1.8 cm, with attenuation of -0.03 HU, due to adenoma. There is mild hypertrophy of the right adrenal gland. OSSEOUS STRUCTURES: Unremarkable CT/CT chest wo IV con IMPRESSION: 1. Mild changes of centrilobular emphysema. 2. Multiple small lung nodules, too small to characterize, with the largest in the right lobe of the liver measured 0.3 cm. 3. Left adrenal gland adenoma and mild hypertrophy of right adrenal gland. Per the 2017 revised Fleischner Society guidelines, no routine follow up is necessarily required in low-risk patients. In high-risk patients with a nodule in the upper lobe and/or demonstrating suspicious morphology, an optional CT follow-up at 12 months may be obtained. If stable at 12 months, no further follow-up is recommended. Fleischner guidelines were followed.
== END 2023-04-24 16:21 | disposition home or self-care (01) ==
LOC: HO.CT 16:20
PROVIDERS: PCP Family Medicine; Visit Provider Hospitalist
DX: R91.8 Other nonspecific abnormal finding of lung field (principal)
CPT/HCPCS: 71250

== ENCOUNTER 2023-07-08 13:10 | Outpatient (AMB) | payer OTHER, SELFPAY ==
[2023-07-08 13:11] VITALS: BMI 24.2
--- NOTE | 2023-07-08 13:11 | MHC.OFFVIS ---
Vital Signs 07/08/23 13:11 Height 4 ft 11 in Weight 120 lb BMI 24.2 Intake Visit Reasons: OV-Lt Shld 01/31 DR-follow up Intake Note: Deyanira is a 67 year old female who presents for a follow up after her Left shoulder on 01/31/2023. The patient reports mild intermittent discomfort in her left shoulder. She takes Tylenol as needed for discomfort. She notices the discomfort mostly when it is cold outside. She denies any weakness. She continues with her home stretching program. Garment Tag Stringer Name: [id number] Allergies No Known Allergies [No Known Allergies*] Allergy (Verified 07/08/23 13:17) Medication List - Last Reconciled 07/08/23 by Adonis Montana MD [id number] 600-50-300 mg (Triumeq) 1 tab PO DAILY acetaminophen 500 mg PO Q6H PRN albuterol sulfate 2.5 mg (3 mL) inhalation DAILY 30 days albuterol sulfate 90 mcg/actuation 2 inhalations inhalation Q6H PRN 30 days amitriptyline 25 mg PO BEDTIME amoxicillin-pot clavulanate 875-125 mg 1 tab PO BID 10 days aspirin 81 mg PO DAILY fenofibrate 160 mg PO DAILY fluticasone propionate 50 mcg/actuation (Flonase Allergy Relief) 1 spray intranasal DAILY vfmbqvojsbp-unfhqstke-fvxxapzm 100-62.5-25 mcg (Trelegy Ellipta) 1 ea inhalation DAILY gabapentin 100 mg PO TID levalbuterol tartrate 45 mcg/actuation 2 puffs inhalation Q6H PRN lidocaine 5% (Lidoderm) 1 patch topical DAILY loratadine (Claritin) 10 mg PO DAILY metformin 500 mg PO DAILY multivitamin 1 tab PO DAILY nebulizers As directed oxycodone 5 mg PO DAILY PRN pantoprazole DR 40 mg PO DAILY pseudoephedrine HCl ER (Sudafed 12 Hour) 120 mg PO Q12H rosuvastatin (Crestor) 20 mg PO DAILY sertraline (Zoloft) 25 mg PO DAILY tramadol 50 mg PO Q6H PRN PFSH Medical History Tremor History of prescribed enteral nutrition feeding Back pain TIA (transient ischemic attack) Pulmonary nodules Tinnitus of right ear Right leg pain Chronic low back pain with bilateral sciatica GERD (gastroesophageal reflux disease) Anxiety CKD (chronic kidney disease) Mild persistent asthma without complication Hyperlipidemia Diabetes Peripheral neuropathy HIV disease COPD (chronic obstructive pulmonary disease) Atelectasis of right lung Surgical History (Updated 07/08/23 @ 13:18 by Micaela Espinosa CMA) Hx of shoulder surgery Hx of tracheostomy Social History Are you a primary family day care provider to a significant other at home: No Do you presently have visiting nurse or other home services: Yes ([employer]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 [employer] [place]) Alcohol intake: former Patient Tobacco Use Status: Current everyday Tobacco user Tobacco use type: Cigarette Cigarette Packs Per Day: 1 Cigarettes Per Day: 4 Years Smoked: since 16 years old Physical Exam Vital Signs: BMI result Body Mass Index 24.2 Const Other: Well-nourished well-developed very friendly female awake alert and oriented x3 in no acute distress Extrem Other: Bilateral upper extremity examination shows good capillary refill, no skin lesions noted, normal sensation light touch Left shoulder examination shows that the surgical incisions are well healed, no erythema, full range of motion when compared to her right shoulder, 5/5 strength with supraspinatus testing, minimal discomfort with range of motion Assessment & Plan Assessment & Plan (1) Left shoulder pain: Code(s): M25.512 - Pain in left shoulder Category: Medical Plan Ms. Lamberto Rucker continues to do very well after undergoing left shoulder arthroscopic surgery on 01/31/2023. She will continue with her home stretching program. The do's and don'ts of lifting were discussed at length with the patient. She will contact me prior to her follow-up appointment in 2-3 months should any questions or concerns arise. Feel free to call me at any time should questions regarding her orthopedic management arise. I spent 19 minutes in reviewing the patient's records and imaging studies, seeing the patient and documenting in the medical record. Coding Level of Care Code Est Pt Level 2 (86654) Diagnoses Left shoulder pain M25.512
== END 2023-07-08 13:24 | disposition home or self-care (01) ==
PROVIDERS: PCP Family Medicine; Visit Provider Orthopaedic Surgery
DX: M25.512 Pain in left shoulder (principal)
CPT/HCPCS: 99212

== ENCOUNTER → 2023-07-08 13:10 | Outpatient (BNVA) | payer OTHER, SELFPAY | PROVIDERS: PCP Family Medicine; Visit Provider Orthopaedic Surgery | DX: M25.512 Pain in left shoulder (principal); Z98.890 Other specified postprocedural states | CPT/HCPCS: 99212 ==

== ENCOUNTER 2023-07-17 09:43 | Outpatient (AMB) | payer OTHER, SELFPAY ==
[2023-07-17 09:52] VITALS: BP 118/60; PULSE 89; O2SAT 95; BMI 24.2
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
== END 2023-07-17 10:06 | disposition home or self-care (01) ==
PROVIDERS: PCP Family Medicine; Visit Provider Hospitalist
DX: J44.1 Chronic obstructive pulmonary disease with (acute) exacerbation (principal); J98.11 Atelectasis; R91.8 Other nonspecific abnormal finding of lung field
CPT/HCPCS: 99214

== ENCOUNTER → 2023-07-17 09:43 | Outpatient (BNVA) | payer OTHER, SELFPAY | PROVIDERS: PCP Family Medicine; Visit Provider Hospitalist | DX: J44.1 Chronic obstructive pulmonary disease with (acute) exacerbation (principal); J98.11 Atelectasis; R91.8 Other nonspecific abnormal finding of lung field | CPT/HCPCS: 99212 ==

== ENCOUNTER 2023-07-29 12:52 | Outpatient (REF) | payer OTHER, SELFPAY | END 2023-07-29 12:53 | disposition home or self-care (01) | LOC: HO.HHCL 12:52 | PROVIDERS: Visit Provider Family Medicine | DX: Z13.89 Encounter for screening for other disorder (principal) ==

== ENCOUNTER 2023-07-30 | Outpatient (REF) | payer OTHER, SELFPAY ==
[2023-07-30 14:03] LABS: Hematocrit 44.1 % (37.0-47.0); Hemoglobin 14.9 g/dl (12.0-16.0); Mean Corpuscular HGB Conc 33.8 g/dl (31.0-35.0); Mean Corpuscular Hemoglobin 34.3 pg (27.0-33.0); Mean Corpuscular Volume 101.6 fL (80.0-98.0); Mean Platelet Volume 10.6 fL (9.4-12.3); Platelet Count 267 X10*3/uL (160-400); Red Blood Count 4.34 X10*6/uL (4.20-5.50); Red Cell Distribution Width 13.9 % (11.0-16.0); White Blood Count 11.1 X10*3/uL (4.8-10.8)
[2023-07-30 14:09] LABS: Estimated Average Glucose 134 mg/dL; Hemoglobin A1c % 6.3 % (<6.0)
[2023-07-30 14:20] LABS: Cholesterol 132 mg/dL (<200); HDL Cholesterol 38 mg/dL (>40); LDL Cholesterol Calculated 62 mg/dL (<100); Triglycerides 164 mg/dL (<150)
[2023-07-30 14:30] LABS: Free T4 (Free Thyroxine) 1.18 ng/dL (0.71-1.85); Thyroid Stimulating Hormone 0.99 uIU/mL (0.32-4.0); Vitamin D 25-OH Total 54.5 ng/mL (>30)
[2023-07-30 14:32] LABS: HBS Num1 6.87 mIU/mL (0-7.99); ~HepC Num1 0.15 S/CO (0.00-0.79); ~Hepatitis B Surface Antibody NONREACTIVE (Nonreactive); ~Hepatitis C Antibody Nonreactive (Nonreactive)
[2023-07-30 14:40] LABS: Creatinine Urine 32.63 mg/dL; Microalbum/Creatinine Ratio Ur 18.3 ug/mg cr (<30)
[2023-07-30 15:16] LABS: CT PCR NOT DETECTED (Not Detect.); NG PCR NOT DETECTED (Not Detect.)
[2023-07-31 11:48] LABS: Absolute CD3 Count 2995 cells/uL (840-3060); Absolute CD4 Count 1767 cells/uL (490-1740); Absolute CD8 Count 1245 cells/uL (180-1170); Absolute Lymphocytes 4106 cells/uL (850-3900); CD4 CD8 Ratio 1.42 (0.86-5.00); Percent CD3 Cells 73 % (57-85); Percent CD4 Cells 43 % (30-61); Percent CD8 Cells 30 % (12-42)
[2023-08-01 09:14] LABS: RPR Rapid Plasma Reagin NON-REACTIVE (NON-REACTIVE)
[2023-08-04 15:21] LABS: TS Negative Control PASSED; TS Panel A 0; TS Panel B 1; TS Positive Control PASSED
[2023-08-04 15:22] LABS: TSpotTB NEGATIVE
[2023-08-18 17:14] LABS: HIV RNA PCR Qn Copies 123 (H)
== END 2023-07-30 00:01 | disposition home or self-care (01) ==
LOC: HO.HHCL
PROVIDERS: Visit Provider Family Medicine
DX: Z00.00 Encounter for general adult medical examination without abnormal findings (principal); Z11.1 Encounter for screening for respiratory tuberculosis; E11.00 Type 2 diabetes mellitus with hyperosmolarity without nonketotic hyperglycemic-hyperosmolar coma (NKHHC); E78.49 Other hyperlipidemia; F41.9 Anxiety disorder, unspecified; B20 Human immunodeficiency virus [HIV] disease; N18.30 Chronic kidney disease, stage 3 unspecified; J44.9 Chronic obstructive pulmonary disease, unspecified; R91.8 Other nonspecific abnormal finding of lung field; D72.829 Elevated white blood cell count, unspecified; K21.9 Gastro-esophageal reflux disease without esophagitis; G62.9 Polyneuropathy, unspecified; M54.50 Low back pain, unspecified; G89.29 Other chronic pain; M25.512 Pain in left shoulder; N39.46 Mixed incontinence; Z86.73 Personal history of transient ischemic attack (TIA), and cerebral infarction without residual deficits
CPT/HCPCS: 0353U; 80061; 82043; 82306; 82570; 83036; 84439; 84443; 85027; 86359; 86360; 86481; 86592; 86706; 86803; 87536; 87900

== ENCOUNTER 2023-07-30 11:06 | Outpatient (REF) | payer OTHER, SELFPAY | END 2023-07-30 11:07 | disposition home or self-care (01) | LOC: HO.HHCL 11:06 | PROVIDERS: Visit Provider Family Medicine | DX: Z13.89 Encounter for screening for other disorder (principal) ==

== ENCOUNTER 2023-08-08 11:13 | Outpatient (REF) | payer OTHER, SELFPAY | END 2023-08-08 11:14 | disposition home or self-care (01) | LOC: HO.HHCLNP 11:13 | PROVIDERS: Visit Provider Emergency Medicine | DX: R10.13 Epigastric pain (principal) | CPT/HCPCS: 87338 ==

== ENCOUNTER → 2023-08-18 09:28 | Outpatient (REF) | payer OTHER, SELFPAY ==
--- NOTE | 2023-08-18 09:31 | ECG_ITS ---
Test Reason : copd Blood Pressure : / mmHG Vent. Rate : 109 BPM Atrial Rate : 109 BPM P-R Int : 126 ms QRS Dur : 076 ms QT Int : 336 ms P-R-T Axes : 045 052 058 degrees QTc Int : 452 ms Sinus tachycardia Low voltage QRS Cannot rule out Anterior infarct , age undetermined Abnormal ECG When compared with ECG of 22-JAN-2023 14:09, Minimal criteria for Anterior infarct are now Present Referred By: Corbin Asher Electronically Signed By:DANIAL GLORIA MD
== END ==
LOC: HO.CARD 09:28
PROVIDERS: PCP Family Medicine; Visit Provider Hospitalist
DX: J44.9 Chronic obstructive pulmonary disease, unspecified (principal)
CPT/HCPCS: 93005

== ENCOUNTER → 2023-08-18 09:31 | Outpatient (BNV) | payer OTHER, SELFPAY | PROVIDERS: PCP Family Medicine; Visit Provider Internal Medicine Cardiovascular Disease | DX: R00.0 Tachycardia, unspecified (principal) | CPT/HCPCS: 93010 ==

== ENCOUNTER → 2023-09-11 13:07 | Outpatient (BNVA) | payer OTHER, SELFPAY | PROVIDERS: PCP Family Medicine; Visit Provider Orthopaedic Surgery | DX: M25.512 Pain in left shoulder (principal) | CPT/HCPCS: 20610; 99212; J1010 ==

== ENCOUNTER 2023-09-11 13:09 | Outpatient (AMB) | payer OTHER, SELFPAY ==
[2023-09-11 13:09] VITALS: BMI 24.2
--- NOTE | 2023-09-11 13:09 | A.OFFVIS_ITS ---
Vital Signs 09/11/23 13:09 Height 4 ft 11 in Weight 120 lb BMI 24.2 Intake Visit Reasons: OV - Left Shoulder Intake Note: Deyanira is a 67 year old female who presents with complaints of intermittent pain in her left shoulder. She denies any fevers or chills. She did undergo left shoulder arthroscopic surgery on 02/10/2023. She denies any weakness. She has tried Tylenol and tramadol which gave her mild relief. She has also done physical therapy exercises which aggravated her pain. 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 Name: [id number] Allergies No Known Allergies [No Known Allergies*] Allergy (Verified 09/11/23 13:13) Medication List - Last Reconciled 09/11/23 by Adonis Montana MD cpzzjshm-gatztcuthakv-lbzcqdg 600-50-300 mg (Triumeq) 1 tab PO DAILY acetaminophen 500 mg PO Q6H PRN albuterol sulfate 2.5 mg (3 mL) inhalation DAILY 30 days albuterol sulfate 90 mcg/actuation 2 inhalations inhalation Q6H PRN 30 days amitriptyline 25 mg PO BEDTIME amoxicillin-pot clavulanate 875-125 mg 1 tab PO BID 10 days aspirin 81 mg PO DAILY azithromycin 250 mg PO 3XW 28 days fenofibrate 160 mg PO DAILY fluticasone propionate 50 mcg/actuation (Flonase Allergy Relief) 1 spray intranasal DAILY ahnegxiknug-wnaxrharf-wwzfndci 100-62.5-25 mcg (Trelegy Ellipta) 1 ea inhalation DAILY gabapentin 100 mg PO TID levalbuterol tartrate 45 mcg/actuation 2 puffs inhalation Q6H PRN lidocaine 5% (Lidoderm) 1 patch topical DAILY loratadine (Claritin) 10 mg PO DAILY metformin 500 mg PO DAILY multivitamin 1 tab PO DAILY nebulizers As directed pantoprazole DR 40 mg PO DAILY pseudoephedrine HCl ER (Sudafed 12 Hour) 120 mg PO Q12H rosuvastatin (Crestor) 20 mg PO DAILY sertraline (Zoloft) 25 mg PO DAILY tramadol 50 mg PO Q6H PRN PFSH Medical History Tremor History of prescribed enteral nutrition feeding Back pain TIA (transient ischemic attack) Pulmonary nodules Tinnitus of right ear Right leg pain Chronic low back pain with bilateral sciatica GERD (gastroesophageal reflux disease) Anxiety CKD (chronic kidney disease) Mild persistent asthma without complication Hyperlipidemia Diabetes Peripheral neuropathy HIV disease COPD (chronic obstructive pulmonary disease) Atelectasis of right lung Surgical History (Updated 07/08/23 @ 13:18 by Micaela Espinosa CMA) Hx of shoulder surgery Hx of tracheostomy Social History Are you a primary after school caregiver to a significant other at home: No Do you 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) Alcohol intake: former Patient Tobacco Use Status: Current everyday Tobacco user Tobacco use type: Cigarette Cigarette Packs Per Day: 1 Cigarettes Per Day: 4 Years Smoked: since 16 years old Physical Exam Vital Signs: BMI result Body Mass Index 24.2 Const Other: Well-nourished well-developed very friendly female awake alert and oriented x3 in no acute distress Extrem Other: Bilateral upper extremity examination shows good capillary refill, no skin lesions noted, normal sensation light touch Left shoulder examination shows that the surgical incisions are well healed, no erythema, slightly decreased range of motion when compared to her right shoulder, 5/5 strength with supraspinatus testing, mild discomfort with resisted forward flexion, no instability Office Procedures Joint Injection/Drain Joint Injection/Drain Primary Site: left shoulder Prep: site was prepped using aseptic technique Injected: 40 mg of, DepoMedrol and 1% plain lidocaine Procedure: The patient tolerated the procedure well Coding 26412 - Large joint Procedure code (CPT) selection complete Assessment & Plan Assessment & Plan (1) Left shoulder pain: Code(s): M25.512 - Pain in left shoulder Category: Medical Plan Ms. Lamberto Rucker presents with left shoulder pain due to rotator cuff tendinosis. I had a lengthy discussion with the patient regarding the treatment options. The risks and benefits of a left shoulder cortisone injection were discussed at length with the patient. The patient wished to proceed. She tolerated the injection well. She will continue with her dborm-sw-shjumq exercises to prevent stiffness. The do's and don'ts of lifting were discussed at length with the patient. The patient will follow up with me on an as-needed basis should her symptoms not plateau at an unacceptable level over the next few months. Feel free to call me at any time should questions regarding her orthopedic management arise. I spent 21 minutes in reviewing the patient's records and imaging studies, seeing the patient and documenting in the medical record. Orders: Orders AMB Joint Injection/Aspiration Today M25.512 - Pain in left shoulder Coding Level of Care Code Est Pt Level 3 (15329) Diagnoses Left shoulder pain M25.512 CPT Codes Coding - 13259 Large joint: 04588 - Large joint ([id number])
== END 2023-09-11 13:25 | disposition home or self-care (01) ==
PROVIDERS: PCP Family Medicine; Visit Provider Orthopaedic Surgery
DX: M25.512 Pain in left shoulder (principal)
CPT/HCPCS: 20610; 99213

== ENCOUNTER 2023-10-09 11:57 | Outpatient (REF) | payer OTHER, SELFPAY ==
[2023-10-09 13:09] LABS: MANUAL DIFF FLAG NO
[2023-10-09 13:14] LABS: Basophils Absolute Auto 0.1 X10*3/uL (0.0-0.2); Basophils Percent Auto 0.7 % (0-2); Eosinophils Absolute Auto 0.1 X10*3/uL (0.0-0.4); Eosinophils Percent Auto 1.2 % (0-4); Hematocrit 43.2 % (37.0-47.0); Hemoglobin 14.7 g/dl (12.0-16.0); Imm Gran Abs Auto 0.05 X10*3/uL (0.00-0.03); Imm Gran Pct Auto 0.5 % (0.0-0.4); Lymphocytes Absolute Auto 3.7 X10*3/uL (1.2-4.9); Lymphocytes Percent Auto 34.4 % (20-40); Mean Corpuscular Hemoglobin 33.9 pg (27.0-33.0); Mean Corpuscular Volume 99.8 fL (80.0-98.0); Mean Platelet Volume 10.3 fL (9.4-12.3); Monocytes Absolute Auto 0.8 X10*3/uL (0.1-1.2); Neutrophils Absolute Auto 6.1 x10*3/uL (2.0-8.3); Neutrophils Percent Auto 56.2 % (45-73); Platelet Count 313 X10*3/uL (160-400); Red Blood Count 4.33 X10*6/uL (4.20-5.50); Red Cell Distribution Width 13.5 % (11.0-16.0); White Blood Count 10.8 X10*3/uL (4.8-10.8)
[2023-10-09 13:44] LABS: Alanine Aminotransferase 22 U/L (0-31); Albumin Level 4.3 g/dL (3.5-5.0); Alkaline Phosphatase 48 U/L (39-117); Anion Gap 11 (12-20); Aspartate Amino Transferase 20 U/L (5-31); Bilirubin Total 0.2 mg/dL (0.0-1.0); Blood Urea Nitrogen 18 mg/dL (9-16); Calcium 10.7 mg/dL (8.4-10.2); Carbon Dioxide 30 mmol/L (22-29); Chloride 107 mmol/L (96-108); Estimated Glomerular Filt Rate > 60; Glucose Random 99 mg/dL (60-115); Potassium 3.8 mmol/L (3.3-5.1); Sodium 144 mmol/L (135-145); Total Protein 7.5 g/dL (6.5-8.0)
[2023-10-10 14:39] LABS: HIV RNA PCR Qn Copies 89 copies/mL (NOT DETECTED); HIV RNA PCR Qn Log Copies 1.95 (NOT DETECTED)
[2023-10-14 19:08] LABS: Absolute CD3 Count 2579 cells/uL (840-3060); Absolute CD4 Count 1478 cells/uL (490-1740); Absolute CD8 Count 1175 cells/uL (180-1170); Absolute Lymphocytes 3543 cells/uL (850-3900); CD4 CD8 Ratio 1.26 (0.86-5.00); Percent CD3 Cells 73 % (57-85); Percent CD4 Cells 42 % (30-61); Percent CD8 Cells 33 % (12-42)
== END 2023-10-09 11:58 | disposition home or self-care (01) ==
LOC: HO.HHCL 11:57
PROVIDERS: Visit Provider Internal Medicine
DX: B20 Human immunodeficiency virus [HIV] disease (principal)
CPT/HCPCS: 36415; 80053; 85025; 86359; 86360; 87536

== ENCOUNTER 2023-10-13 10:50 | Outpatient (REF) | payer OTHER, SELFPAY ==
--- NOTE | ~2023-10-13 | CT_ITS ---
EXAMINATION: CT CHEST WITHOUT CONTRAST CLINICAL INFORMATION: Pulmonary nodules. COMPARISON: CT chest dated April 24, 2023. TECHNIQUE: Multidetector volumetric CT imaging of the chest was done. Axial MIP volume rendering provided. Sagittal and coronal reformatted images were obtained. This CT examination was performed using dose optimization techniques as appropriate, variously including the following: *Automated exposure control *Adjustment of mA and/or kV according to patient size (this includes techniques or standardized protocols for targeted exams where dose is matched to indication/reason for exam; i.e. extremities or head) *Use of iterative reconstruction technique DLP: 104 mGy-cm FINDINGS: Limited by patient's breathing motion artifact. LUNGS: Pulmonary patchy groundglass, right lung base. Nonspecific 3 mm groundglass nodule, right lower lobe. MEDIASTINUM: There is a focal narrowing deformity at the proximal trachea just below the thyroid gland. No lymphadenopathy. Calcified plaques in the thoracic aorta wall and its branches. No aneurysm, thoracic aorta. No pericardial effusion.. CORONARY ARTERY CALCIFICATION: Calcified plaques in the coronary arteries. PLEURA: No pleural effusion. No pneumothorax. AXILLA: No lymphadenopathy. UPPER ABDOMEN: There is a 1.7 cm low density nodule measuring -12 Hounsfield units, left adrenal gland. Soft tissue fullness, right adrenal gland. OSSEOUS STRUCTURES: Multilevel spondylosis without acute fracture or listhesis. Bone marrow inhomogeneity. CT/CT chest wo IV con IMPRESSION: Focal stenotic deformity, proximal trachea. Consider post traumatic versus post infection. Airspace disease, right lung bases. Malignancy cannot be excluded. Coronary artery disease and atherosclerosis disease. Lipid rich adenoma, right adrenal gland Fleischner guidelines were followed. Electronically signed by: Carlos Floyd MD 12/24/2023 10:44 AM EDT
== END 2023-10-13 10:51 | disposition home or self-care (01) ==
LOC: HO.CT 10:50
PROVIDERS: Visit Provider Hospitalist
DX: R91.8 Other nonspecific abnormal finding of lung field (principal)
CPT/HCPCS: 71250

== ENCOUNTER → 2023-10-13 10:55 | Outpatient (BNV) | payer OTHER, SELFPAY | PROVIDERS: Visit Provider Radiology Diagnostic Radiology | DX: R91.8 Other nonspecific abnormal finding of lung field (principal) | CPT/HCPCS: 71250 ==

== ENCOUNTER 2023-10-22 11:57 | Outpatient (REF) | payer OTHER, SELFPAY | END 2023-10-22 11:58 | disposition home or self-care (01) | LOC: HO.MAMMO 11:57 | PROVIDERS: PCP Family Medicine; Visit Provider Family Medicine | DX: Z13.89 Encounter for screening for other disorder (principal) ==

== ENCOUNTER → 2023-10-24 09:00 | Outpatient (BNV) | payer OTHER, SELFPAY | PROVIDERS: PCP Family Medicine; Visit Provider Radiology Diagnostic Radiology | DX: Z12.31 Encounter for screening mammogram for malignant neoplasm of breast (principal) | CPT/HCPCS: 77063; 77067 ==

== ENCOUNTER 2023-10-24 09:25 | Outpatient (REF) | payer OTHER, SELFPAY ==
--- NOTE | ~2023-10-24 | MM_ITS ---
EXAMINATION: MM SCREENING DIGITAL BREAST TOMOSYNTHESIS, BILATERAL CLINICAL INFORMATION: Screening. Asymptomatic. COMPARISON: Mammography: 10/21/2022, 10/09/2021, 10/06/2020, 04/09/2019, and exams dating back to 2017. TECHNIQUE: Digital breast tomosynthesis is performed in both the craniocaudal and mediolateral oblique views along with computer-aided detection (CAD). Synthesized 2D images are generated from the tomosynthesis. In addition, added left full field CC view was also obtained. FINDINGS: There are scattered areas of fibroglandular density (ACR BI-RADS breast composition Category b). Mild bilateral central anterior foci of duct ectasia again noted, similar to prior studies. There are no suspicious masses, suspicious grouped calcifications, or areas of architectural distortion in either breast. The parenchymal pattern is stable from prior exams. There is no skin or axillary abnormality. MM/MM tomosynthesis screening BI IMPRESSION: No mammographic evidence of malignancy. Stable examination. ASSESSMENT: BI-RADS BI-RADS 2 - Benign Findings RECOMMENDATION: Routine annual mammography screening. 1 year F/U This examination should not preclude the clinical evaluation of a suspicious palpable abnormality. This patient's information was entered into a reminder system with a target due date for their next mammogram. Electronically signed by: Nabeel Norman MD 11/07/2023 11:41 AM EDT
== END 2023-10-24 09:26 | disposition home or self-care (01) ==
LOC: HO.MAMMO 09:25
PROVIDERS: PCP Family Medicine; Visit Provider Family Medicine
DX: Z12.31 Encounter for screening mammogram for malignant neoplasm of breast (principal)
CPT/HCPCS: 77063; 77067

== ENCOUNTER 2023-10-29 11:34 | Outpatient (AMB) | payer OTHER, SELFPAY ==
--- NOTE | 2023-10-29 11:35 | MHC.OFFVIS ---
Vital Signs 10/29/23 11:40 Height 4 ft 11 in Weight 121 lb BMI 24.4 BP 103/56 L Blood Pressure Location Lt brachial Position Sitting Pulse 91 Intake Visit Reasons: Colonoscopy Screening Intake Note: Patient new consult for 1st pre colonoscopy screening. Patient cc: acid reflex on and off, denies any other GI issues or concern for today. Floor Framer Required: Yes Floor Framer Name: [facility] interpeter Accompanied by: Self / Same As Patient Allergies No Known Allergies [No Known Allergies*] Allergy (Verified 10/29/23 11:39) HPI HPI Colonoscopy Screening: Details: 68-year-old female here for preprocedural meeting to discuss a screening colonoscopy. She is referred by [facility] PMX Positive Cologuard COPD/asthma History of TIA High cholesterol Diabetes HIV Peripheral neuropathy Chronic low back pain Tremor Chronic kidney disease * SURGICAL HISTORY Shoulder surgery left Tracheostomy - acute resp failure History of feeding tube during trach * ALLERGIES: NKDA * [employer] LABS: Laboratory Tests 07/30/23 10/09/23 11:31 12:00 WBC 10.8 Hgb 14.7 Hct 43.2 MCV 99.8 H MCH 33.9 H Plt Count 313 Estimated GFR > 60 Total Bilirubin 0.2 AST 20 ALT 22 Alkaline Phosphatase 48 Free T4 1.18 TODAY'S VISIT Maltese # Makayla Elias This is her first colonoscopy. She had a positive Cologuard test. No problems with anesthesia or sedation. She has HIV that is controlled with antiviral therapy no other ID problems. No card and her asthma is currently well controlled. There is no known FHX or crc or polyps. [facility] Medical History (Updated 10/29/23 @ 12:21 by LENNIE Suarez) Tremor History of prescribed enteral nutrition feeding Back pain TIA (transient ischemic attack) Pulmonary nodules Tinnitus of right ear Right leg pain Chronic low back pain with bilateral sciatica GERD (gastroesophageal reflux disease) Anxiety CKD (chronic kidney disease) Mild persistent asthma without complication Hyperlipidemia Diabetes Peripheral neuropathy HIV disease COPD (chronic obstructive pulmonary disease) Atelectasis of right lung Surgical History (Updated 10/29/23 @ 12:21 by Melany Hidalgo, ANP-C) Hx of shoulder surgery Hx of tracheostomy Social History Are you a primary healthcare network pricing consultant to a significant other at home: No Do you presently have 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) Alcohol intake: former Patient Tobacco Use Status: Current everyday Tobacco user Tobacco use type: Cigarette Cigarette Packs Per Day: 1 Cigarettes Per Day: 4 Years Smoked: since 16 years old Review of Systems Const Denies fatigue, Denies fever(s), Denies night sweats, Denies poor appetite and Denies weight loss Eyes Reports requires corrective lenses ENT Reports Normal hearing present, Denies dysphagia, Denies odynophagia, Denies throat swelling and Denies tongue swelling Card Reports no additional complaints Resp Reports no additional complaints GI Details: Denies abdominal pain, Denies melena, Denies bloating, Denies hematochezia, Denies constipation, Denies GI cramping, Denies dysphagia, Denies excessive flatus, Denies early satiety, Denies heartburn, Denies diarrhea, Denies nausea, Denies odynophagia, Denies vomiting and Denies hematemesis Skin/Breast Denies pruritus, Denies lesions, Denies rash and Denies jaundice Neuro Reports Normal hearing present, Denies Abnormal speech present and Reports tremor(s) Psych Reports anxiety Endo Denies fatigue Aller/Immun Denies throat swelling and Denies tongue swelling Physical Exam Vital Signs: Last Vital Signs Pulse 91 10/29/23 11:40 BP 103/56 L 10/29/23 11:40 BMI result Body Mass Index 24.4 Const General: cooperative, no acute distress, well developed and well groomed Nutritional Appearance: average body habitus and well nourished Orientation/consciousness: oriented to person, oriented to place and oriented to time Limitations: language barrier and wheelchair HEENT Head: Yes normocephalic and Yes atraumatic Eyes General: appearance normal, both eyes and all related structures Pupils: Equal, round and reactive pupils present Neck Neck: Yes normal visual inspection and Yes no lymphadenopathy Thyroid: Thyroid normal Resp Effort & Inspection: normal respiratory effort and able to speak in complete sentences Auscultation: clear to auscultation bilaterally Cardio Rate: regular rate Rhythm: regular rhythm Heart sounds: Normal, physiologic split S2 sound present Peripheral pulses: radial pulses present and posterior tibial pulses present GI Inspection: No distended and No Abdominal panniculus present Palpation (GI): Soft to palpation, nontender, no guarding, not rigid and No hepatosplenomegaly present Percussion: Yes normal to percussion Auscultation: normal bowel sounds Rectal Exam - Female: deferred Abdomen image: 1. surgical scars Skin General skin exam: no rashes or lesions noted, turgor normal, skin not dry, no jaundice, No spider nevi and no striae Rashes: no rashes Nails: normal Neuro General: oriented to person, oriented to place and oriented to time Cranial nerves: Yes Equal, round and reactive pupils present and Yes Normal hearing present Speech: No Abnormal speech present Extrem General: Yes normal to inspection, No clubbing, No cyanosis and No edema Psych Appearance: grossly normal and well kempt Mental Status: mental status grossly normal Speech and movement: Normal speech and movement present Affect: normal affect Attitude: cooperative Thought process: Circumstantial thought process present and not confabulating Thought content: Normal thought content present Insight: Limited insight present (Psych) Judgement: Limited judgement present (Psych) Assessment & Plan Assessment & Plan (1) Positive colorectal cancer screening using Cologuard test: Code(s): R19.5 - Other fecal abnormalities Category: Medical (2) COPD (chronic obstructive pulmonary disease): Code(s): J44.9 - Chronic obstructive pulmonary disease, unspecified Category: Medical Qualifiers: COPD type: COPD with acute exacerbation Qualified Code(s): J44.1 - Chronic obstructive pulmonary disease with (acute) exacerbation (3) HIV disease: Comment: 12/13/2014 Code(s): B20 - Human immunodeficiency virus [HIV] disease Category: Medical Plan Maltese # Makayla Live This is her first colonoscopy. She had a positive Cologuard test. No problems with anesthesia or sedation. She has HIV that is controlled with antiviral therapy no other ID problems. No card and her asthma is currently well controlled. There is no known FHX or crc or polyps. Orders: Orders Colonoscopy - GI Use Only Today R19.5 - Other fecal abnormalities Medications: New peg 3350-electrolytes 236-22.74-6.74 -5.86 gram (Golytely) until fecal effluent is clear; do not exceed a total volume of 2,000 mL 240 mL PO Q10M 1 day 4,000 mL 0RF Z12.11 - Encounter for screening for malignant neoplasm of colon bisacodyl (Dulcolax (bisacodyl)) 10 mg (2 x 5 mg) PO BEDTIME 2 days 4 tabs 0RF Coding Level of Care Code New Pt Level 3 (77133) Diagnoses Positive colorectal cancer screening using Cologuard test R19.5 Chronic obstructive pulmonary disease with acute exacerbation J44.1 COPD type: COPD with acute exacerbation HIV disease B20
[2023-10-29 11:40] VITALS: BP 103/56; PULSE 91; BMI 24.4
== END 2023-10-29 12:14 | disposition home or self-care (01) ==
PROVIDERS: PCP Family Medicine; Visit Provider Nurse Practitioner
DX: R19.5 Other fecal abnormalities (principal); J44.1 Chronic obstructive pulmonary disease with (acute) exacerbation; B20 Human immunodeficiency virus [HIV] disease
CPT/HCPCS: 99203

== ENCOUNTER → 2023-10-29 11:34 | Outpatient (BNVA) | payer OTHER, SELFPAY | PROVIDERS: PCP Family Medicine; Visit Provider Nurse Practitioner | DX: Z01.818 Encounter for other preprocedural examination (principal); R19.5 Other fecal abnormalities; B20 Human immunodeficiency virus [HIV] disease | CPT/HCPCS: 99202 ==

== ENCOUNTER 2023-11-17 14:12 | Outpatient (REF) | payer OTHER, SELFPAY ==
[2023-11-17 15:44] LABS: Appearance Urine Cloudy; Color Urine Dark Yellow; Glucose Urine UA Negative (Negative); Leukocyte Esterase Urine Negative (Negative); Nitrite Urine Negative (Negative); Urine Blood Negative (Negative); Urine Ketones Negative (Negative); Urine Protein Negative (Neg-Trace)
[2023-11-17 16:25] LABS: Anion Gap 12 (12-20); Blood Urea Nitrogen 17 mg/dL (9-16); Carbon Dioxide 28 mmol/L (22-29); Chloride 106 mmol/L (96-108); Estimated Glomerular Filt Rate 58; Potassium 4.5 mmol/L (3.3-5.1); Sodium 141 mmol/L (135-145)
[2023-11-17 16:30] LABS: Microalbum/Creatinine Ratio Ur 9.8 ug/mg cr (<30); Total Protein Urine Random < 7 mg/dL (<12)
== END 2023-11-17 14:13 | disposition home or self-care (01) ==
LOC: HO.LAB 14:12
PROVIDERS: PCP Family Medicine; Referring Provider Internal Medicine Nephrology; Visit Provider Hospitalist
DX: K21.9 Gastro-esophageal reflux disease without esophagitis (principal); N18.2 Chronic kidney disease, stage 2 (mild); E11.21 Type 2 diabetes mellitus with diabetic nephropathy; J44.1 Chronic obstructive pulmonary disease with (acute) exacerbation; J98.11 Atelectasis; R91.8 Other nonspecific abnormal finding of lung field
CPT/HCPCS: 36415; 80051; 81003; 82043; 82310; 82565; 82570; 84156; 84520; 99212

== ENCOUNTER 2023-11-17 14:12 | Outpatient (AMB) | payer OTHER, SELFPAY ==
[2023-11-17 14:18] VITALS: BP 100/60; PULSE 85; O2SAT 97; BMI 24.9
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
== END 2023-11-17 14:36 | disposition home or self-care (01) ==
PROVIDERS: PCP Family Medicine; Visit Provider Hospitalist
DX: J44.1 Chronic obstructive pulmonary disease with (acute) exacerbation (principal); J98.11 Atelectasis; R91.8 Other nonspecific abnormal finding of lung field
CPT/HCPCS: 99214; G2211

== ENCOUNTER 2023-12-11 13:21 | Outpatient (AMB) | payer OTHER, SELFPAY ==
[2023-12-11 13:22] VITALS: BMI 24.8
--- NOTE | 2023-12-11 13:22 | MHC.OFFVIS ---
Vital Signs 12/11/23 13:22 Height 4 ft 11 in Weight 123 lb BMI 24.8 Intake Visit Reasons: Left shoulder discomfort Intake Note: Deyanira is a 68 year old female who presents with complaints of mild intermittent discomfort in her left shoulder. She did undergo left shoulder arthroscopic surgery on 01/31/2023. She continues with her home stretching program. She denies any weakness. She does not take any medicines for her discomfort. Allergies No Known Allergies [No Known Allergies*] Allergy (Verified 12/11/23 13:24) Medication List - Last Reconciled 12/11/23 by Adonis Montana MD [id number] 600-50-300 mg (Triumeq) 1 tab PO DAILY acetaminophen 500 mg PO Q6H PRN albuterol sulfate 2.5 mg (3 mL) inhalation DAILY 30 days amitriptyline 25 mg PO BEDTIME aspirin 81 mg PO DAILY azithromycin 250 mg PO 3XW 28 days bisacodyl (Dulcolax (bisacodyl)) 10 mg (2 x 5 mg) PO BEDTIME 2 days fenofibrate 160 mg PO DAILY fluticasone propionate 50 mcg/actuation (Flonase Allergy Relief) 1 spray intranasal DAILY [id number]-hzpyfrdeb-emsilukf 100-62.5-25 mcg (Trelegy Ellipta) 1 ea inhalation DAILY gabapentin 100 mg PO TID levalbuterol tartrate 45 mcg/actuation 2 puffs inhalation Q6H PRN lidocaine 5% (Lidoderm) 1 patch topical DAILY loratadine (Claritin) 10 mg PO DAILY metformin 500 mg PO DAILY multivitamin 1 tab PO DAILY nebulizers As directed pantoprazole DR 40 mg PO DAILY peg 3350-electrolytes 236-22.74-6.74 -5.86 gram (Golytely) 240 mL PO Q10M 1 day pseudoephedrine HCl ER (Sudafed 12 Hour) 120 mg PO Q12H rosuvastatin (Crestor) 20 mg PO DAILY sertraline (Zoloft) 25 mg PO DAILY tramadol 50 mg PO Q6H PRN PFSH Medical History (Updated 10/29/23 @ 12:21 by LENNIE Suarez) Tremor History of prescribed enteral nutrition feeding Back pain TIA (transient ischemic attack) Pulmonary nodules Tinnitus of right ear Right leg pain Chronic low back pain with bilateral sciatica GERD (gastroesophageal reflux disease) Anxiety CKD (chronic kidney disease) Mild persistent asthma without complication Hyperlipidemia Diabetes Peripheral neuropathy HIV disease COPD (chronic obstructive pulmonary disease) Atelectasis of right lung Surgical History (Updated 10/29/23 @ 12:21 by LENNIE Suarez) Hx of shoulder surgery Hx of tracheostomy Social History Are you a primary point of care specialist to a significant other at home: No 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) Alcohol intake: former Patient Tobacco Use Status: Current everyday Tobacco user Tobacco use type: Cigarette Cigarette Packs Per Day: 1 Cigarettes Per Day: 4 Years Smoked: since 16 years old Physical Exam Vital Signs: BMI result Body Mass Index 24.8 Const Other: Well-nourished well-developed very friendly female awake alert and oriented x3 in no acute distress Extrem Other: Bilateral upper extremity examination shows good capillary refill, no skin lesions noted, normal sensation light touch Left shoulder examination shows full range of motion when compared to her right shoulder, 5/5 strength with supraspinatus testing, no discomfort with resisted internal rotation, external rotation or forward flexion Assessment & Plan Assessment & Plan (1) Left shoulder pain: Code(s): M25.512 - Pain in left shoulder Category: Medical Plan Deyanira continues to do well after undergoing left shoulder arthroscopic surgery on 01/31/2023. She will continue with her home stretching program. The do's and don'ts of lifting were discussed at length with the patient. She will follow up with me on an as-needed basis should her symptoms worsen in any way. Feel free to call me at any time should questions regarding her orthopedic management arise. I spent 22 minutes in reviewing the patient's records and imaging studies, seeing the patient and documenting in the medical record. Coding Level of Care Code Est Pt Level 3 (93603) Complex EM visit Add On G2211 Diagnoses Left shoulder pain M25.512
== END 2023-12-11 13:35 | disposition home or self-care (01) ==
PROVIDERS: PCP Family Medicine; Visit Provider Orthopaedic Surgery
DX: M25.512 Pain in left shoulder (principal)
CPT/HCPCS: 99213; G2211

== ENCOUNTER → 2023-12-11 13:21 | Outpatient (BNVA) | payer OTHER, SELFPAY | PROVIDERS: PCP Family Medicine; Visit Provider Orthopaedic Surgery | DX: M25.512 Pain in left shoulder (principal) | CPT/HCPCS: 99212 ==

== ENCOUNTER 2023-12-16 10:44 | Day surgery (SDC) | payer OTHER, SELFPAY ==
--- NOTE | 2023-12-15 09:10 | P.CONAN_ITS ---
Documented by User: Varsha Smith NP 12/15/23 09:11 HPI - Anesthesia Eval Consult details Narrative: 68yo F for Colonoscopy PMFSH Active Problems Active Problems: All Active Problems HIV disease (Acute) Positive colorectal cancer screening using Cologuard test (Acute) Left shoulder pain (Acute) Pre-op chest exam (Acute) Impingement syndrome of left shoulder (Acute) Leucocytosis (Chronic) Pulmonary nodules (Acute) COPD (chronic obstructive pulmonary disease) (Acute) Atelectasis of right lung (Acute) Past Medical History Medical History Tremor History of prescribed enteral nutrition feeding Back pain TIA (transient ischemic attack) Pulmonary nodules Tinnitus of right ear Right leg pain Chronic low back pain with bilateral sciatica GERD (gastroesophageal reflux disease) Anxiety CKD (chronic kidney disease) Mild persistent asthma without complication Hyperlipidemia Diabetes Peripheral neuropathy HIV disease COPD (chronic obstructive pulmonary disease) Atelectasis of right lung Family History Family history of problems with anesthesia: No Surgical History Surgical History Hx of shoulder surgery Hx of tracheostomy History of Problems with Anesthesia: No Social History Social History Are you a primary customer care coordinator to a significant other at home: No Do you presently have visiting nurse or other home services: Yes (CHECK EXAMINER) Alcohol intake: former Patient Tobacco Use Status: Current everyday Tobacco user Tobacco use type: Cigarette Cigarette Packs Per Day: 1 Cigarettes Per Day: 3 Years Smoked: since 16 years old Meds Allergies Allergy/AdvReac Type Severity Reaction Status Date / Time No Known Allergies Allergy Verified 12/16/23 12:31 [No Known Allergies*] Home Medications ?Medication ?Instructions ?Recorded ?Confirmed ?Last Taken ?Type acetaminophen 500 mg capsule 500 mg PO Q6H PRN Pain 05/19/20 12/16/23 Unknown History amitriptyline 25 mg tablet 25 mg PO BEDTIME 05/19/20 12/16/23 Unknown History aspirin 81 mg tablet,delayed 81 mg PO DAILY 05/19/20 12/16/23 12/14/23 History release fenofibrate 160 mg tablet 160 mg PO DAILY 05/19/20 12/16/23 Unknown History fluticasone propionate 50 1 spray intranasal DAILY 05/19/20 12/16/23 Unknown History mcg/actuation nasal spray,suspension (Flonase Allergy Relief) gabapentin 100 mg capsule 100 mg PO TID 05/19/20 12/16/23 Unknown History lidocaine 5 % topical patch 1 patch topical DAILY 05/19/20 12/16/23 Unknown History (Lidoderm) loratadine 10 mg tablet (Claritin) 10 mg PO DAILY 05/19/20 12/16/23 Unknown History metformin 500 mg tablet 500 mg PO DAILY 05/19/20 12/16/23 Unknown History multivitamin 1 tab PO DAILY 05/19/20 12/16/23 Unknown History pantoprazole 40 mg granules 40 mg PO DAILY 05/19/20 12/16/23 Unknown History delayed-release for susp in packet pseudoephedrine HCl 120 mg 120 mg PO Q12H 05/19/20 12/16/23 Unknown History tablet,extended release (Sudafed 12 Hour) rosuvastatin 20 mg tablet (Crestor) 20 mg PO DAILY 05/19/20 12/16/23 Unknown History sertraline 25 mg tablet (Zoloft) 25 mg PO DAILY 05/19/20 12/16/23 Unknown History fluticasone fur. 100 mcg-umeclid 1 ea inhalation DAILY 12/27/21 12/16/23 01/31/23 06:00 History 62.5 mcg-vilant 25 mcg inhalat.powder (Trelegy Ellipta) nebulizers 08/05/22 12/16/23 Unknown History tramadol 50 mg tablet 50 mg PO Q6H PRN Pain 08/05/22 12/16/23 Unknown History bictegravir 50 mg-emtricitabine 1 tab PO DAILY 12/16/23 12/16/23 Unknown History 200 mg-tenofovir alafenam 25 mg tablet (Biktarvy) Assessment and Plan Assessment Anesthesia Assessment: Chart Reviewed Final Anesthetic Review Family History of Problems with Anesthesia: No History of Problems with Anesthesia: No Documented by User: Renee Garcia MD 12/16/23 15:53 [facility] Active Problems Active Problems: All Active Problems HIV disease (Acute) Positive colorectal cancer screening using Cologuard test (Acute) Left shoulder pain (Acute) Pre-op chest exam (Acute) Impingement syndrome of left shoulder (Acute) Leucocytosis (Chronic) Pulmonary nodules (Acute) COPD (chronic obstructive pulmonary disease) (Acute) - not using inhalers as prescribed Atelectasis of right lung (Acute) Intubated and ventilated + feeding tube 1999 Smoker Past Medical History Medical History Tremor History of prescribed enteral nutrition feeding Back pain TIA (transient ischemic attack) Pulmonary nodules Tinnitus of right ear Right leg pain Chronic low back pain with bilateral sciatica GERD (gastroesophageal reflux disease) Anxiety CKD (chronic kidney disease) Mild persistent asthma without complication Hyperlipidemia Diabetes Peripheral neuropathy HIV disease COPD (chronic obstructive pulmonary disease) Atelectasis of right lung Family History Family history of problems with anesthesia: No Surgical History Surgical History Hx of shoulder surgery Hx of tracheostomy History of Problems with Anesthesia: No Social History Social History Are you a primary customer care coordinator to a significant other at home: No Do you presently have visiting nurse or other home services: Yes (CHECK EXAMINER) Alcohol intake: former Patient Tobacco Use Status: Current everyday Tobacco user Tobacco use type: Cigarette Cigarette Packs Per Day: 1 Cigarettes Per Day: 3 Years Smoked: since 16 years old Meds Allergies Allergy/AdvReac Type Severity Reaction Status Date / Time No Known Allergies Allergy Verified 12/16/23 12:31 [No Known Allergies*] Home Medications ?Medication ?Instructions ?Recorded ?Confirmed ?Last Taken ?Type acetaminophen 500 mg capsule 500 mg PO Q6H PRN Pain 05/19/20 12/16/23 Unknown History amitriptyline 25 mg tablet 25 mg PO BEDTIME 05/19/20 12/16/23 Unknown History aspirin 81 mg tablet,delayed 81 mg PO DAILY 05/19/20 12/16/23 12/14/23 History release fenofibrate 160 mg tablet 160 mg PO DAILY 05/19/20 12/16/23 Unknown History fluticasone propionate 50 1 spray intranasal DAILY 05/19/20 12/16/23 Unknown History mcg/actuation nasal spray,suspension (Flonase Allergy Relief) gabapentin 100 mg capsule 100 mg PO TID 05/19/20 12/16/23 Unknown History lidocaine 5 % topical patch 1 patch topical DAILY 05/19/20 12/16/23 Unknown History (Lidoderm) loratadine 10 mg tablet (Claritin) 10 mg PO DAILY 05/19/20 12/16/23 Unknown History metformin 500 mg tablet 500 mg PO DAILY 05/19/20 12/16/23 Unknown History multivitamin 1 tab PO DAILY 05/19/20 12/16/23 Unknown History pantoprazole 40 mg granules 40 mg PO DAILY 05/19/20 12/16/23 Unknown History delayed-release for susp in packet pseudoephedrine HCl 120 mg 120 mg PO Q12H 05/19/20 12/16/23 Unknown History tablet,extended release (Sudafed 12 Hour) rosuvastatin 20 mg tablet (Crestor) 20 mg PO DAILY 05/19/20 12/16/23 Unknown History sertraline 25 mg tablet (Zoloft) 25 mg PO DAILY 05/19/20 12/16/23 Unknown History fluticasone fur. 100 mcg-umeclid 1 ea inhalation DAILY 12/27/21 12/16/23 01/31/23 06:00 History 62.5 mcg-vilant 25 mcg inhalat.powder (Trelegy Ellipta) nebulizers 08/05/22 12/16/23 Unknown History tramadol 50 mg tablet 50 mg PO Q6H PRN Pain 08/05/22 12/16/23 Unknown History bictegravir 50 mg-emtricitabine 1 tab PO DAILY 12/16/23 12/16/23 Unknown History 200 mg-tenofovir alafenam 25 mg tablet (Biktarvy) Exam Height,Weight and Vital Signs: Height 4 ft 11 in Weight 52.163 kg Vital Signs Temp Pulse Resp BP Pulse Ox O2 Del Method 12/16/23 12:48 98.6 F 79 15 108/68 94 Room Air Pertinent Lab Results Pertinent Lab Results: Lab Results 12/16/23 Range/Units 13:00 POC Glucose 100 (60-115) mg/dL Airway Mallampati Class: II TM Dist: >3cm Neck ROM: Full Denture: Upper and Lower Loose/Missing/Broken Teeth: Yes Heart: RRR Lungs: Expiratory wheeze left ?pleural rub Assessment and Plan Assessment Anesthesia Assessment: Anesthesia Plan Discussed and Chart Reviewed Final Anesthetic Review Family History of Problems with Anesthesia: No History of Problems with Anesthesia: No NPO: Yes ASA Class: III Final Preanesthetic Review: No Changes in Pt Med Stat, Meds/Allgs Chart Reviewed, Consent Obtained/Reviewed and Anes Risks/Benef Reviewed Patient Risk: Intermediate Procedure Risk: Low Assessment/Block/Sedation in SS: Assess/Block/Sedation-SS Anesthetic Plan Anesthetic Plan: TIVA Disposition: Standard PACU
[2023-12-16 12:37] VITALS: BMI 23.2
[2023-12-16 12:48] VITALS: BP 108/68; PULSE 79; RESP 15; TEMP 37; O2SAT 94
[2023-12-16] MEDS: Lactated Ringers 1,000 ML 100 ML IVCONT (12:58)
--- NOTE | 2023-12-16 12:58 | MHC.SHP ---
Pre-Procedural Eval Section A - 24 Hr Update-Section A only Date of Service: 12/16/23 Section B - Complete if H&P > 30 days Chief Complaint: Positive Cologuard Details of Present Illness: PMX Positive Cologuard COPD/asthma History of TIA High cholesterol Diabetes HIV Peripheral neuropathy Chronic low back pain Tremor Chronic kidney disease * SURGICAL HISTORY Shoulder surgery left Tracheostomy - acute resp failure History of feeding tube during trach * Allergies: Allergies Allergy/AdvReac Type Severity Reaction Status Date / Time No Known Allergies Allergy Verified 12/16/23 12:31 [No Known Allergies*] Review of Systems Review of Systems Comment: Ten point ROS negative Exam Exam Comment: Gen appear: No acute distress HEENT: no icterus Chest: No overt resp distress Abd: soft, nontender, nondistended Psych: Stable affect, answering questions appropriately Neuro: A/Ox3 noted to move all extremities spontaneously Ext: no peripheral edema Plan Diagnosis/Plan: Unchanged I have reviewed the history and physical and performed a pertinent physical examination on my patient. No changes have occurred unless specified. Time Spent With Patient Time: Total time managing care of this patient today ____ minutes.
[2023-12-16 13:06] LABS: Glucose, Whole Blood 100 mg/dL (60-115)
[2023-12-16] MEDS: Albuterol Sulfate (0.083%) 2.5 MG/3 ML VIAL.NEB INHALE (14:22)
[2023-12-16 14:23] VITALS: PULSE 71; RESP 18; O2SAT 99
[2023-12-16 14:59] VITALS: BP 100/60; PULSE 65; RESP 20; TEMP 36.6; O2SAT 96
--- NOTE | 2023-12-16 15:01 | HO.OPN-COLON ---
Colonoscopy Operative Note Operative Note Date of Service: 12/16/23 Narrative: Procedure: Colonoscopy Indication: Positive cologuard Endoscopist: Eri Zabala MD Anesthesia Provider: Dr Renee Garcia Anesthesia type: MAC Instrument: Olympus [id number]-[id number] Consent: Indication, risks vs benefits, and alternatives were discussed with the patient who gave written informed consent to proceed. An upholstery restorer was utilized to assist with the consent. Monitoring: EKG, pulse, pulse oximetry and blood pressure were monitored throughout the procedure. Please see anesthesia flowsheet. Procedure: The patient was brought to the procedure room and placed in the left lateral decubitus position. IV medications were administered by the anesthesia provider in attendance. A digital rectal exam was performed which was normal. A distal attachment cap was affixed to the tip of the colonoscope which was then inserted through the anus and advanced through the colon to the cecum at 75 cm,and terminal ileum. Appendiceal orifice and ileocecal valve were identified. Mucosa was carefully examined under high definition white light as the instrument was slowly withdrawn in a retrograde panoramic fashion. Retroflexion was performed in rectum. The procedure was not difficult. There were no immediate obvious complications. The quality of the prep was BBPS: 2+2+3 = adequate Withdrawal time 8 minutes. Limitations: No limitations. Findings: Mucosa: Normal to cecum and terminal ileum. Protruding lesions: 1 pedunculated polyp of size 8 mm in sigmoid colon. Hot snare polypectomy was performed. The polyp was completely removed and retrieved. Large internal hemorrhoids without stigmata of recent bleeding. Impression: 1. Normal colon and terminal ileum 1mucosa 2. Total of 1 polyp removed 3. Internal hemorrhoids Recommendations: - Follow path results. - Repeat colonoscopy in 5-7 years if pt in good health.
[2023-12-16 15:14] VITALS: BP 115/71; PULSE 82; RESP 20; TEMP 36.6; O2SAT 98
== END 2023-12-16 15:36 | disposition home or self-care (01) ==
PROVIDERS: PCP Family Medicine; Visit Provider Internal Medicine
PROC: 0DJD8ZZ Inspection of Lower Intestinal Tract, Via Natural or Artificial Opening Endoscopic (ICD-10-PCS; CPT 45378; principal; 2023-12-16 13:20)
DX: R19.5 Other fecal abnormalities (principal); K63.5 Polyp of colon; K64.8 Other hemorrhoids; J44.9 Chronic obstructive pulmonary disease, unspecified; E78.00 Pure hypercholesterolemia, unspecified; E11.22 Type 2 diabetes mellitus with diabetic chronic kidney disease; N18.9 Chronic kidney disease, unspecified; Z79.84 Long term (current) use of oral hypoglycemic drugs; G62.9 Polyneuropathy, unspecified; G89.29 Other chronic pain; M54.50 Low back pain, unspecified; B20 Human immunodeficiency virus [HIV] disease; R25.1 Tremor, unspecified; Z86.73 Personal history of transient ischemic attack (TIA), and cerebral infarction without residual deficits; Z79.899 Other long term (current) drug therapy; Z98.890 Other specified postprocedural states
CPT/HCPCS: 45385; 82947; 88305; 94640; J2003; J2704

== ENCOUNTER → 2023-12-16 10:44 | Outpatient (BNV) | payer OTHER, SELFPAY | PROVIDERS: PCP Family Medicine; Visit Provider Internal Medicine | DX: Z12.11 Encounter for screening for malignant neoplasm of colon (principal); R19.5 Other fecal abnormalities; K63.5 Polyp of colon; K64.8 Other hemorrhoids | CPT/HCPCS: 45385 ==

== ENCOUNTER 2024-01-07 10:53 | Outpatient (REF) | payer OTHER, SELFPAY ==
[2024-01-07 13:31] LABS: MANUAL DIFF FLAG NO
[2024-01-07 13:39] LABS: Basophils Absolute Auto 0.1 X10*3/uL (0.0-0.2); Basophils Percent Auto 0.8 % (0-2); Eosinophils Absolute Auto 0.1 X10*3/uL (0.0-0.4); Eosinophils Percent Auto 1.1 % (0-4); Hematocrit 43.3 % (37.0-47.0); Hemoglobin 14.5 g/dl (12.0-16.0); Imm Gran Abs Auto 0.02 X10*3/uL (0.00-0.03); Imm Gran Pct Auto 0.2 % (0.0-0.4); Lymphocytes Percent Auto 32.5 % (20-40); Mean Corpuscular HGB Conc 33.5 g/dl (31.0-35.0); Mean Corpuscular Hemoglobin 33.5 pg (27.0-33.0); Mean Platelet Volume 10.7 fL (9.4-12.3); Monocytes Absolute Auto 0.6 X10*3/uL (0.1-1.2); Neutrophils Absolute Auto 5.5 x10*3/uL (2.0-8.3); Neutrophils Percent Auto 59.4 % (45-73); Platelet Count 289 X10*3/uL (160-400); Red Blood Count 4.33 X10*6/uL (4.20-5.50); Red Cell Distribution Width 13.9 % (11.0-16.0); White Blood Count 9.2 X10*3/uL (4.8-10.8)
[2024-01-07 13:57] LABS: Alanine Aminotransferase 20 U/L (0-31); Alkaline Phosphatase 46 U/L (39-117); Anion Gap 10 (12-20); Aspartate Amino Transferase 25 U/L (5-31); Bilirubin Total 0.2 mg/dL (0.0-1.0); Blood Urea Nitrogen 24 mg/dL (9-16); Calcium 10.2 mg/dL (8.4-10.2); Carbon Dioxide 28 mmol/L (22-29); Chloride 106 mmol/L (96-108); Estimated Glomerular Filt Rate 56; Glucose Random 130 mg/dL (60-115); Potassium 3.9 mmol/L (3.3-5.1); Sodium 140 mmol/L (135-145); Total Protein 7.1 g/dL (6.5-8.0)
[2024-01-09 08:58] LABS: HIV RNA PCR Qn Copies 210 copies/mL (NOT DETECTED); HIV RNA PCR Qn Log Copies 2.32 (NOT DETECTED)
[2024-01-12 22:44] LABS: Absolute CD3 Count 2150 cells/uL (840-3060); Absolute CD4 Count 1248 cells/uL (490-1740); Absolute CD8 Count 919 cells/uL (180-1170); Absolute Lymphocytes 2876 cells/uL (850-3900); CD4 CD8 Ratio 1.36 (0.86-5.00); Percent CD3 Cells 75 % (57-85); Percent CD4 Cells 43 % (30-61); Percent CD8 Cells 32 % (12-42)
== END 2024-01-07 10:54 | disposition home or self-care (01) ==
LOC: HO.HHCL 10:53
PROVIDERS: Visit Provider Internal Medicine
DX: B20 Human immunodeficiency virus [HIV] disease (principal)
CPT/HCPCS: 36415; 80053; 85025; 86359; 86360; 87536

== ENCOUNTER 2024-01-07 15:51 | Outpatient (AMB) | payer OTHER, SELFPAY ==
--- NOTE | 2024-01-07 15:53 | MHC.OFFVIS ---
Vital Signs 01/07/24 15:54 Height 4 ft 11 in Weight 120 lb 5.958 oz BMI 24.3 BP 106/70 Blood Pressure Location Rt brachial Position Sitting Pulse 81 Intake Visit Reasons: s/p colon Intake Note: Patient in office today s/p colonoscopy. Allergies No Known Allergies [No Known Allergies*] Allergy (Verified 05/19/24 13:17) HPI HPI s/p colon: Details: Assessment & Plan (1) Positive colorectal cancer screening using Cologuard test: Code(s): R19.5 - Other fecal abnormalities Category: Medical (2) COPD (chronic obstructive pulmonary disease): Code(s): J44.9 - Chronic obstructive pulmonary disease, unspecified Category: Medical Qualifiers: COPD type: COPD with acute exacerbation Qualified Code(s): J44.1 - Chronic obstructive pulmonary disease with (acute) exacerbation (3) HIV disease: Comment: 12/13/2014 Code(s): B20 - Human immunodeficiency virus [HIV] disease Category: Medical Plan [place] # Makayla Live This is her first colonoscopy. She had a positive Cologuard test. No problems with anesthesia or sedation. She has HIV that is controlled with antiviral therapy no other ID problems. No card and her asthma is currently well controlled. There is no known FHX or crc or polyps. Orders: Orders Colonoscopy - GI Use Only Today R19.5 - Other fecal abnormalities Medications: New peg 3350-electrolytes 236-22.74-6.74 -5.86 gram (Golytely) until fecal effluent is clear; do not exceed a total volume of 2,000 mL 240 mL PO Q10M 1 day 4,000 mL 0RF Z12.11 - Encounter for screening for malignant neoplasm of colon bisacodyl (Dulcolax (bisacodyl)) 10 mg (2 x 5 mg) PO BEDTIME 2 days 4 tabs 0RF COLONOSCOPY 12/17/23 Findings: Mucosa: Normal to cecum and terminal ileum. Protruding lesions: 1 pedunculated polyp of size 8 mm in sigmoid colon. Hot snare polypectomy was performed. The polyp was completely removed and retrieved. Large internal hemorrhoids without stigmata of recent bleeding. Impression: 1. Normal colon and terminal ileum 1mucosa 2. Total of 1 polyp removed 3. Internal hemorrhoids Recommendations: - Follow path results. - Repeat colonoscopy in 5-7 years if pt in good health. BIOPSY Received: 12/17/23 Diagnosis Colon, sigmoid, 8 mm polyp: Hyperplastic polyp. TODAY'S VISIT [place] #Kristofer Live I explain that a 5 year follow up is recommended r/t the + Cologuard test. The procedure was well tolerated. The results were explained and the patient is agreeable to the follow-up interval as stated. The bowel pattern has returned to normal. Education was provided to tell any 1st degree relatives about their findings to be sure that they are screened by age 45. Educated that they will be put on a recall list when it is time for their repeat scope but should they move out of state or away from the hospital they will need to remember along with their primary to repeat the procedure in a timely fashion to avoid any adverse complications. [facility] Medical History (Updated 05/19/24 @ 13:48 by Adonis Montana MD) Tremor History of prescribed enteral nutrition feeding Back pain TIA (transient ischemic attack) Pulmonary nodules Tinnitus of right ear Right leg pain Chronic low back pain with bilateral sciatica GERD (gastroesophageal reflux disease) Anxiety CKD (chronic kidney disease) Mild persistent asthma without complication Hyperlipidemia Diabetes Peripheral neuropathy HIV disease COPD (chronic obstructive pulmonary disease) Atelectasis of right lung Surgical History (Updated 05/25/24 @ 16:59 by LENNIE Suarez) H/O colonoscopy Hx of shoulder surgery Hx of tracheostomy Social History Are you a primary respiratory care specialist to a significant other at home: No Do you presently have visiting nurse or other home services: Yes (THORAC[employer] MEDICINE SPECIALIST) Alcohol intake: former Patient Tobacco Use Status: Current everyday Tobacco user Tobacco use type: Cigarette Cigarette Packs Per Day: 1 Cigarettes Per Day: 3 Years Smoked: since 16 years old Review of Systems Const Denies fatigue, Denies fever(s), Denies night sweats, Denies poor appetite and Denies weight loss ENT Reports Normal hearing present, Denies dental pain, Denies dysphagia, Denies hearing loss, Denies mouth pain, Denies odynophagia, Denies throat swelling, Denies tongue swelling and Reports other (Dentition adequate) GI Details: Denies abdominal pain, Denies melena, Denies bloating, Denies hematochezia, Denies constipation, Denies GI cramping, Denies dysphagia, Denies excessive flatus, Denies early satiety, Denies heartburn, Denies diarrhea, Denies nausea, Denies odynophagia, Denies vomiting and Denies hematemesis Skin/Breast Denies pruritus, Denies lesions, Denies rash and Denies jaundice Neuro Reports Normal hearing present and Denies Abnormal speech present Endo Denies fatigue Aller/Immun Denies throat swelling and Denies tongue swelling Physical Exam Vital Signs: Last Vital Signs Pulse 81 01/07/24 15:54 BP 106/70 01/07/24 15:54 BMI result Body Mass Index 24.3 Const General: cooperative, no acute distress, well developed and well groomed Nutritional Appearance: average body habitus and well nourished Orientation/consciousness: oriented to person, oriented to place and oriented to time Limitations: No language barrier HEENT Head: Yes normocephalic and Yes atraumatic Eyes General: appearance normal, both eyes and all related structures Pupils: Equal, round and reactive pupils present Neck Neck: Yes normal visual inspection and Yes no lymphadenopathy Thyroid: Thyroid normal Resp Effort & Inspection: normal respiratory effort and able to speak in complete sentences Auscultation: clear to auscultation bilaterally Cardio Rate: regular rate Rhythm: regular rhythm Heart sounds: Normal, physiologic split S2 sound present Peripheral pulses: radial pulses present and posterior tibial pulses present GI Inspection: No distended and No Abdominal panniculus present Palpation (GI): Soft to palpation, nontender, no guarding, not rigid and No hepatosplenomegaly present Percussion: Yes normal to percussion Auscultation: normal bowel sounds Rectal Exam - Female: deferred Skin General skin exam: no rashes or lesions noted, turgor normal, skin not dry, no jaundice, No spider nevi and no striae Rashes: no rashes Nails: normal Neuro General: oriented to person, oriented to place and oriented to time Cranial nerves: Yes Equal, round and reactive pupils present and Yes Normal hearing present Speech: No Abnormal speech present Extrem General: Yes normal to inspection, No clubbing, No cyanosis and No edema Psych Thought process: Normal thought process present and not confabulating Thought content: Normal thought content present Insight: Good insight present (Psych) Judgement: Good judgement present (Psych) Assessment & Plan Assessment & Plan (1) Positive colorectal cancer screening using Cologuard test: Code(s): R19.5 - Other fecal abnormalities Category: Medical Plan [place] #Kristofer Live I explain that a 5 year follow up is recommended r/t the + Cologuard test. The procedure was well tolerated. The results were explained and the patient is agreeable to the follow-up interval as stated. The bowel pattern has returned to normal. Education was provided to tell any 1st degree relatives about their findings to be sure that they are screened by age 45. Educated that they will be put on a recall list when it is time for their repeat scope but should they move out of state or away from the hospital they will need to remember along with their primary to repeat the procedure in a timely fashion to avoid any adverse complications. Coding Level of Care Code Est Pt Level 3 (42481) Diagnoses Positive colorectal cancer screening using Cologuard test R19.5
[2024-01-07 15:54] VITALS: BP 106/70; PULSE 81; BMI 24.3
== END 2024-01-07 16:06 | disposition home or self-care (01) ==
PROVIDERS: PCP Family Medicine; Visit Provider Nurse Practitioner
DX: R19.5 Other fecal abnormalities (principal)
CPT/HCPCS: 99499

== ENCOUNTER 2024-03-19 10:16 | Outpatient (REF) | payer OTHER, SELFPAY ==
--- NOTE | ~2024-03-19 | XR_ITS ---
EXAMINATION: XR KNEE, RIGHT CLINICAL INFORMATION: Right knee pain s/p mechanical fall 2 days ago. COMPARISON: None available. TECHNIQUE: Four views of the right knee. FINDINGS: Normal bone mineralization. No fracture, dislocation, malalignment, or suspicious bone lesion. Joint spaces appear preserved. Minimal degenerative arthritis in the patellofemoral joint. There is a small suprapatellar joint effusion present. Soft tissues appear normal aside from vascular calcification. XR/XR knee RT 4V IMPRESSION: 1. No acute bony or soft tissue abnormalities. 2. Small suprapatellar joint effusion. Electronically signed by: Nabeel Norman MD 03/19/2024 10:47 AM CHRISS
--- NOTE | ~2024-03-19 | XR_ITS ---
EXAMINATION: XR SHOULDER, LEFT CLINICAL INFORMATION: Left shoulder pain s/p mechanical fall 2 days ago. COMPARISON: 11/07/2022. TECHNIQUE: AP external rotation, Grashey, scapular Y, and axillary views of the left shoulder. FINDINGS: No fracture, dislocation, or suspicious bone lesion. Normal glenohumeral joint alignment. Preserved joint space with minimal osteoarthritic change. AC joint appears intact without definite subluxation. Preserved subacromial space. Laterally mildly downsloping acromion. No subacromial spurring. Remainder the bony and soft tissue structures appear normal. XR/XR shoulder LT min 2V IMPRESSION: No acute findings left shoulder. Electronically signed by: Nabeel Norman MD 03/19/2024 10:46 AM CHRISS LARIOS
--- OUTSIDE RECORDS SUMMARY | 2024-03-19 11:27 | XMS_ITS | Clinical Summary ---
Author Organization [facility] Address [address] [place] [address] Phone Care Team Providers Care Slide Fastener Chain Assembler Name Role Phone Berkley Wasserman DO Primary Care Provider Unava ilable Allergies No known active allergies Medications baclofen (LIORESAL) 10 MG tablet Take 1 tablet by mouth 3 (three) times a day Active fenofibrate (TRICOR) 145 MG tablet Take 1 tablet by mouth 1 (one) time each day Active fluticasone (FLONASE) 50 MCG/ACT nasal spray Active gabapentin (NEURONTIN) 100 MG capsule Take 1 capsule by mouth 1 (one) time each day Active lamiVUDine (EPIVIR) 150 MG tablet Take 1 tablet by mouth 1 (one) time each day Active loratadine (CLARITIN) 10 MG tablet Take 1 tablet by mouth 1 (one) time each day Active metFORMIN (GLUCOPHAGE) 500 MG tablet Take 1 tablet by mouth 1 (one) time each day Active traMADol (ULTRAM) 50 MG tablet 50 mg Active terbinafine (LamISIL) 250 MG tablet Take 1 tablet by mouth 1 (one) time each day Active Triumeq 600-50-300 MG per tablet Take 1 tablet by mouth 1 (one) time each day 1 Active albuterol (2.5 MG/3ML) 0.083% nebulizer solution INHALE 1 AMPULE USING A NEBULIZER EVERY 4 HOURS NEEDED FOR COUGH, WHEEZING, OR SHORTNESS OF BREATH 1 Active fluticasone-leatha meterol (ADVAIR DISKUS) 250-50 MCG/DOSE diskus inhaler INHALE 1 PUFF BY MOUTH EVERY TWELVE HOURS. RINSE MOUTH AFTER USING. 1 Active Fluticasone-Ume clidin-Vilant 100-62.5-25 MCG/ACT aerosol powder INHALE 1 PUFF EVERY DAY AT THE SAME TIME 2 Active Active Problems Problem Noted Date Diagnosed Date Hypercalcemia 11/24/2023 Chronic kidney disease, stage 2 (mild) 3 Polyneuropathy 11/25/2022 12/30/2022 Gastroesophageal reflux disease 11/25/2022 12/30/2022 Anxiety 11/25/2022 12/30/2022 Leukocytosis 01/29/2022 12/30/2022 Chronic kidney disease, stage 2 (mild) 1 Human immunodeficiency virus infection 1 Renal disorder due to type 2 diabetes mellitus 0 04/24/2020 Chronic kidney disease stage 3 04/24/2020 1 03/01/2022 Mild persistent asthma 12/13/2014 3 Hyperlipidemia 12/13/2014 12/30/2022 Chronic obstructive pulmonary disease 12/13/2014 12/30/2022 Type 2 diabetes mellitus 12/13/2014 023 Tobacco dependence syndrome 12/13/201407/2022 Immunizations Name Administration Dates Next Due Influenza, Quadrivalent, Pre servative Free 12/14/2018,11/27/2016,02/14/2016,11/22 Influenza, Quadrivalent, Wit h Preservative 11/25/2017 Influenza, Unspecified 11/25/2022,2021,12/11/2020,11/30 MMR 04/24/2016,05/06/2014 Meningococcal MCV4P 01/12/2018,06/16/2017 Moderna SARS-COV-2 07/11/2021, 1,05/16/2020,04/18 Pneumococcal Conjugate 13-Valent 12/13/2014 Pneumococcal Polysaccharide 04/02/2019, 4 Shingrix 03/29/2019,01/11/2019 Tdap 03/21/2014 Zoster 04/12/2016 Family History Medical History Relation Comments Diabetes Father Heart disease Father Diabetes Mother Hypertension Mother Diabetes Sibling Relation Status Comments Father Mother Sibling Social History Tobacco Use Types Packs/Day Years Used Date Smoking Tobacco: Every Day Cigarettes Alcohol Use Standard Drinks/Week Comments No 0 (1 standard drink = 0.6 oz pur e alcohol) Comments Unknown Sex and Gender Information Value Date Recorded Sex Assigned at Not on file Legal Sex Female 4:43 PM EST Gender Identity Not on file Sexual Orientation Not on file Last Filed Vital Signs Vital Sign Reading Time Taken Comments Blood Pressure 100/60 11/24/2023 1:59 PM EDT Pulse 78 11/24/2023 1:59 PM EDT Temperature - - Respiratory Rate - - Oxygen Saturation 98% 11/24/2023 1:59 PM EDT Inhaled Oxygen Concentration - - Weight 55.9 kg (123 lb 4.8 oz) 11/24/2023 1:59 P M EDT Height 157.5 cm (5' 2 ) 04/27/2019 12:00 PM EST Body Mass Index 22.55 04/27/2019 12:00 PM EST Plan of Treatment Upcoming Encounters Date Type Department Care Team (Late st Contact Info) Description 11/29/2024 1:00 PM EDT Office Visit [facility] [address] [place] [address] Alf Carter MD [address] [facility] [address] [place] [address] Health Maintenance Due Date Last Done Comments Breast Cancer Screening 1955 Colorectal Cancer Screening: Annual FOBT 09/28/2004 Colorectal Cancer Screening: Colonoscopy 09/28/2004 Colorectal Cancer Screening: Sigmoidoscopy 09/28/2004 Hepatitis B Vaccine (1 of 3 - Risk 3-dose series) 2015 Diabetes: Ophthalmology Exam 03/26/2020 Diabetes: Pedal Pulse Checked 03/26/2020 Diabetes: Sensory Foot Exam 03/26/2020 Diabetes: Visual Foot Exam 03/26/2020 Diabetes: Hemoglobin A1C 02/25/2023 11/25/2022 Influenza Vaccine (#1) 2023 3, 12/11/2021, 12/11/2020, Additional history exists Pneumococcal Vaccine: 65+ Ye ars (4 of 4 - PPSV23 or PCV20) 04/02/2024 04/02/2019, 12/13/2014, 11/30/2013 Insurance [facility] ([id number]) [address] [place] [id number] [facility] ([id number]) Care Teams Slide Fastener Chain Assembler Relationship Specialty Start Date End Date Berkley Wasserman DO PCP - General 03/06/20
--- OUTSIDE RECORDS SUMMARY | 2024-03-19 11:27 | XMS_ITS | Encounter Summary ---
Author Organization [facility] Address [address] [address] Phone Care Team Providers Care Players Club Representative Name Role Phone AmericaBerkley lynch Primary Care Provider Unava ilable Encounter Details Date Type Department Care Team (Late st Contact Info) Description 11/18/2023 Office Communication [facility] [address] [address] Alf Carter MD [address] [address] Social History Tobacco Use Types Packs/Day Years Used Date Smoking Tobacco: Every Day Cigarettes Alcohol Use Standard Drinks/Week Comments No 0 (1 standard drink = 0.6 oz pur e alcohol) Comments Unknown Sex and Gender Information Value Date Recorded Sex Assigned at Not on file Legal Sex Female 4:43 PM EST Gender Identity Not on file Sexual Orientation Not on file documented as of this encounter Miscellaneous Notes * Telephone Encounter - Alf Carter MD - 11/18/2023 1:21 PM EDT Needs f/u in 1-2 weeks with me--u can overbook if needed documented in this encounter Plan of Treatment Upcoming Encounters Date Type Department Care Team (Late st Contact Info) Description 11/29/2024 1:00 PM EDT [facility] [address] [place] [address] Alf Carter MD [address] [address] documented as of this encounter Visit Diagnoses Not on filedocumented in this encounter Care Teams Players Club Representative Relationship Specialty Start Date End Date Berkley Wasserman DO PCP - General 03/06/20 documented as of this encounter
== END 2024-03-19 10:17 | disposition home or self-care (01) ==
LOC: HO.HHCX 10:16
PROVIDERS: Visit Provider Family Medicine
DX: M25.561 Pain in right knee (principal); M25.512 Pain in left shoulder
CPT/HCPCS: 73030; 73564

== ENCOUNTER → 2024-03-19 10:16 | Outpatient (BNV) | payer OTHER, SELFPAY | PROVIDERS: Visit Provider Radiology Diagnostic Radiology | DX: M25.561 Pain in right knee (principal); M25.512 Pain in left shoulder | CPT/HCPCS: 73030; 73564 ==

== ENCOUNTER 2024-05-10 09:55 | Outpatient (REF) | payer OTHER, SELFPAY ==
--- OUTSIDE RECORDS SUMMARY | 2024-05-10 10:58 | XMS_ITS | Clinical Summary ---
Author Organization [facility] Address [address] [place] [address] Phone Care Team Providers Care Prop Sawyer Name Role Phone Berkley Wasserman DO Primary [...] Care Team (Late st Contact Info) Description 12/20/2024 1:00 PM EDT Office Visit [facility] [address] [place] [address] Alf Carter MD [address] [facility] [address] [place] [address] Health Maintenance Due Date Last Done Comments [...] or PCV20) 04/02/2024 04/02/2019, 12/13/2014, 11/30/2013 Insurance [facility] ([id number]) [address] [place] [id number] [facility] ([id number]) Care Teams Prop Sawyer Relationship Specialty Start Date End Date Berkley Wasserman DO PCP - General 03/06/20
--- OUTSIDE RECORDS SUMMARY | 2024-05-10 10:58 | XMS_ITS | Encounter Summary ---
Author Organization [facility] Address [address] [address] Phone Care Team Providers Care Associate Professor Of Physics Name Role Phone AmericaBerkley lynch Primary Care Provider Unava ilable Encounter Details Date Type Department Care Team (Late st Contact Info) Description 11/18/2023 Office Communication [facility] [address] [phone] Alf Carter MD [address] [address] Social History Tobacco Use Types [...] Office Visit [facility] [address] [place] [address] Alf Carter MD [address] [address] documented as of this encounter Visit Diagnoses Not on filedocumented in this encounter Care Teams Associate Professor Of Physics Relationship Specialty Start Date End Date Berkley Wasserman DO PCP - General 03/06/20 documented as of this encounter
[2024-05-10 11:23] LABS: MANUAL DIFF FLAG NO
[2024-05-10 11:35] LABS: Basophils Absolute Auto 0.1 X10*3/uL (0.0-0.2); Basophils Percent Auto 0.7 % (0-2); Eosinophils Absolute Auto 0.1 X10*3/uL (0.0-0.4); Eosinophils Percent Auto 1.2 % (0-4); Hematocrit 42.5 % (37.0-47.0); Hemoglobin 14.2 g/dl (12.0-16.0); Imm Gran Abs Auto 0.05 X10*3/uL (0.00-0.03); Imm Gran Pct Auto 0.4 % (0.0-0.4); Lymphocytes Absolute Auto 3.6 X10*3/uL (1.2-4.9); Lymphocytes Percent Auto 30.6 % (20-40); Mean Corpuscular HGB Conc 33.4 g/dl (31.0-35.0); Mean Corpuscular Hemoglobin 33.5 pg (27.0-33.0); Mean Corpuscular Volume 100.2 fL (80.0-98.0); Mean Platelet Volume 10.5 fL (9.4-12.3); Monocytes Absolute Auto 0.7 X10*3/uL (0.1-1.2); Monocytes Percent Auto 5.8 % (2-11); Neutrophils Absolute Auto 7.2 x10*3/uL (2.0-8.3); Neutrophils Percent Auto 61.3 % (45-73); Platelet Count 397 X10*3/uL (160-400); Red Blood Count 4.24 X10*6/uL (4.20-5.50); Red Cell Distribution Width 14.9 % (11.0-16.0); White Blood Count 11.8 X10*3/uL (4.8-10.8)
[2024-05-10 13:04] LABS: Alanine Aminotransferase 18 U/L (0-31); Albumin Level 4.2 g/dL (3.5-5.0); Alkaline Phosphatase 44 U/L (39-117); Anion Gap 13 (12-20); Aspartate Amino Transferase 19 U/L (5-31); Bilirubin Total 0.2 mg/dL (0.0-1.0); Blood Urea Nitrogen 21 mg/dL (9-16); Calcium 10.2 mg/dL (8.4-10.2); Carbon Dioxide 24 mmol/L (22-29); Chloride 108 mmol/L (96-108); Estimated Glomerular Filt Rate 55; Glucose Random 120 mg/dL (60-115); Potassium 4.2 mmol/L (3.3-5.1); Sodium 141 mmol/L (135-145)
[2024-05-11 16:38] LABS: HIV RNA PCR Qn Copies NOT DETECTED copies/mL (NOT DETECTED); HIV RNA PCR Qn Log Copies NOT DETECTED (NOT DETECTED)
[2024-05-13 18:13] LABS: Absolute CD3 Count 2644 cells/uL (840-3060); Absolute CD4 Count 1574 cells/uL (490-1740); Absolute CD8 Count 1122 cells/uL (180-1170); Absolute Lymphocytes 3704 cells/uL (850-3900); Percent CD3 Cells 71 % (57-85); Percent CD4 Cells 42 % (30-61); Percent CD8 Cells 30 % (12-42)
== END 2024-05-10 09:56 | disposition home or self-care (01) ==
LOC: HO.HHCL 09:55
PROVIDERS: Visit Provider Internal Medicine
DX: B20 Human immunodeficiency virus [HIV] disease (principal)
CPT/HCPCS: 36415; 80053; 85025; 86359; 86360; 87536; 87900; 87901; 87906

== ENCOUNTER 2024-05-12 08:48 | Outpatient (AMB) | payer OTHER, SELFPAY ==
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
[2024-05-12 09:13] VITALS: BP 102/60; PULSE 83; O2SAT 99; BMI 23.6
--- OUTSIDE RECORDS SUMMARY | 2024-05-12 09:40 | XMS_ITS | Clinical Summary ---
Author Organization [facility] Address [address] [place] [address] Phone Care Team Providers Care Agency Appointments Supervisor Name Role Phone Berkley Wasserman DO Primary [...] Visit [facility] [address] [place] [address] Alf Carter MD [address] [facility] [address] [place] [address] Health Maintenance Due Date Last Done Comments [...] or PCV20) 04/02/2024 04/02/2019, 12/13/2014, 11/30/2013 Insurance [facility] ([id number]) [address] [place] [id number] [facility] ([id number]) Care Teams Agency Appointments Supervisor Relationship Specialty Start Date End Date Berkley Wasserman DO PCP - General 03/06/20
--- OUTSIDE RECORDS SUMMARY | 2024-05-12 09:40 | XMS_ITS | Encounter Summary ---
Author Organization [facility] Address [address] [address] Phone Care Team Providers Care Elementary [employer] Tutor Name Role Phone AmericaBerkley lynch Primary Care Provider Unava ilable Encounter Details Date Type Department Care Team (Late st Contact Info) Description 11/18/2023 Office Communication [facility] [address] [address] Alf Carter MD [address] [address] Social History Tobacco Use Types [...] Office Visit [facility] [address] [place] [address] Alf Carter MD [address] [address] documented as of this encounter Visit Diagnoses Not on filedocumented in this encounter Care Teams Elementary School Tutor Relationship Specialty Start Date End Date Berkley Wasserman DO PCP - General 03/06/20 documented as of this encounter
== END 2024-05-12 09:32 | disposition home or self-care (01) ==
LOC: HO.HPS 08:49
PROVIDERS: PCP Family Medicine; Visit Provider Hospitalist
DX: J44.1 Chronic obstructive pulmonary disease with (acute) exacerbation (principal); J98.11 Atelectasis; R91.8 Other nonspecific abnormal finding of lung field
CPT/HCPCS: 99214; G2211

== ENCOUNTER → 2024-05-12 08:48 | Outpatient (BNVA) | payer OTHER, SELFPAY | PROVIDERS: PCP Family Medicine; Visit Provider Hospitalist | DX: J44.1 Chronic obstructive pulmonary disease with (acute) exacerbation (principal); J98.11 Atelectasis; R91.8 Other nonspecific abnormal finding of lung field | CPT/HCPCS: 99212 ==

== ENCOUNTER 2024-05-18 10:11 | Outpatient (REF) | payer OTHER, SELFPAY ==
[2024-05-18 12:16] LABS: Anion Gap 11 (12-20); Blood Urea Nitrogen 27 mg/dL (9-16); Calcium 10.3 mg/dL (8.4-10.2); Carbon Dioxide 27 mmol/L (22-29); Chloride 108 mmol/L (96-108); Estimated Glomerular Filt Rate 56; Potassium 3.8 mmol/L (3.3-5.1); Sodium 142 mmol/L (135-145)
[2024-05-22 12:27] LABS: VITAMIN D (1,25 OH) D3 32 pg/mL; Vit D (1,25-Dihydroxy) Total 32 pg/mL (18-72); Vitamin D (1,25 OH) D2 <8 pg/mL
[2024-05-22 23:28] LABS: Parathyroid Hormone Related Pr 10 pg/mL (11-20)
[2024-05-24 16:28] LABS: Kappa, Serum 290 mg/dL (176-443); Kappa/Lambda Ratio, Serum 2.03 (1.29-2.55); Lambda, Serum 143 mg/dL (91-240)
[2024-05-24 23:04] LABS: Calcium, Random Urine 15.8 mg/dL
== END 2024-05-18 10:12 | disposition home or self-care (01) ==
LOC: HO.HHCL 10:11
PROVIDERS: Visit Provider Internal Medicine Nephrology
DX: N18.2 Chronic kidney disease, stage 2 (mild) (principal); E11.21 Type 2 diabetes mellitus with diabetic nephropathy; E83.52 Hypercalcemia
CPT/HCPCS: 36415; 80051; 82310; 82565; 82652; 83519; 83883; 83970; 84100; 84520

== ENCOUNTER 2024-05-19 12:40 | Outpatient (AMB) | payer OTHER, SELFPAY ==
[2024-05-19 13:14] VITALS: BMI 23.4
--- NOTE | 2024-05-19 13:14 | A.OFFVIS_ITS ---
Vital Signs 05/19/24 13:14 Height 4 ft 11 in Weight 116 lb BMI 23.4 Intake Visit Reasons: OV-Lt Shld 01/31/23 DR-follow up Intake Note: Deyanira is a 68 year old female who presents with complaints of progressively worsening left shoulder pain and weakness. The patient states that several months ago she slipped on ice and fell directly onto her left arm. Since that t jesse she has had difficulty lifting her left hand above shoulder height due to weakness. She did undergo left shoulder arthroscopic surgery on 01/31/2023. She denies any fevers or chills. She has tried physical therapy exercises which aggravated her pain. She has also tried Tylenol, anti-inflammatory medicines and tramadol which gave her minimal relief. Database Administrator Required: Yes Database Administrator Language: Nanotechnologist Services: Database Administrator Present Database Administrator Name: [email or web address] bautista/JONI Allergies No Known Allergies [No Known Allergies*] Allergy (Verified 05/19/24 13:17) Medication List - Last Reconciled 05/19/24 by Adonis Montana MD acetaminophen 500 mg PO Q6H PRN albuterol sulfate 2.5 mg (3 mL) inhalation DAILY 30 days albuterol sulfate 90 mcg/actuation 2 puffs PO Q6H PRN amitriptyline 25 mg PO BEDTIME aspirin 81 mg PO DAILY tehfpluwa-brlhxloi-zmfsorf ala 50-200-25 mg (Biktarvy) 1 tab PO DAILY doxycycline hyclate 100 mg PO BID 10 days fenofibrate 160 mg PO DAILY fluticasone propionate 50 mcg/actuation (Flonase Allergy Relief) 1 spray intranasal DAILY jlfocsttaqn-eqmcnzzdp-myfpjhwm 100-62.5-25 mcg (Trelegy Ellipta) 1 ea inhalation DAILY gabapentin 100 mg PO TID lidocaine 5% (Lidoderm) 1 patch topical DAILY loratadine (Claritin) 10 mg PO DAILY metformin 500 mg PO DAILY multivitamin 1 tab PO DAILY nebulizers As directed pantoprazole DR 40 mg PO DAILY pseudoephedrine HCl ER (Sudafed 12 Hour) 120 mg PO Q12H rosuvastatin (Crestor) 20 mg PO DAILY sertraline (Zoloft) 25 mg PO DAILY tramadol 50 mg PO Q6H PRN trazodone 100 mg PO BEDTIME PFS Medical History Tremor History of prescribed enteral nutrition feeding Back pain TIA (transient ischemic attack) Pulmonary nodules Tinnitus of right ear Right leg pain Chronic low back pain with bilateral sciatica GERD (gastroesophageal reflux disease) Anxiety CKD (chronic kidney disease) Mild persistent asthma without complication Hyperlipidemia Diabetes Peripheral neuropathy HIV disease COPD (chronic obstructive pulmonary disease) Atelectasis of right lung Surgical History Hx of shoulder surgery Hx of tracheostomy Social History Are you a primary health care specialist to a significant other at home: No Do you presently have 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) Alcohol intake: former Patient Tobacco Use Status: Current everyday Tobacco user Tobacco use type: Cigarette Cigarette Packs Per Day: 1 Cigarettes Per Day: 3 Years Smoked: since 16 years old Physical Exam Vital Signs: BMI result Body Mass Index 23.4 Const Other: Well-nourished well-developed very friendly female awake alert and oriented x3 in no acute distress Extrem Other: Bilateral upper extremity examination shows good capillary refill, no skin lesions noted, normal sensation light touch Left shoulder examination shows decreased range of motion when compared to her right shoulder, 4+ out of 5 strength with supraspinatus testing, positive impingement signs, no instability Assessment & Plan Assessment & Plan (1) Rotator cuff insufficiency of left shoulder: Code(s): M25.312 - Other instability, left shoulder Category: Medical Plan Ms. Lamberto Rucker presents with left shoulder pain and weakness most likely due to a full-thickness rotator cuff tear. Thus, I will send the patient for an MRI of her left shoulder for further evaluation. I will see her back once the MRI is completed to discuss the findings and treatment options. She will continue with her range motion exercises in the meantime to prevent stiffness. I spent 22 minutes in reviewing the patient's records and imaging studies, seeing the patient and documenting in the medical record. Orders: Orders MR shoulder LT wo con Today M25.312 - Other instability, left shoulder Coding Level of Care Code Est Pt Level 3 (70324) Complex EM visit Add On G2211 Diagnoses Rotator cuff insufficiency of left shoulder M25.312
== END 2024-05-19 13:47 | disposition home or self-care (01) ==
LOC: HO.HOS 12:40
PROVIDERS: Visit Provider Orthopaedic Surgery
DX: M25.312 Other instability, left shoulder (principal)
CPT/HCPCS: 99213; G2211

== ENCOUNTER → 2024-05-19 12:40 | Outpatient (BNVA) | payer OTHER, SELFPAY | PROVIDERS: Visit Provider Orthopaedic Surgery | DX: M25.312 Other instability, left shoulder (principal) | CPT/HCPCS: 99212 ==

== ENCOUNTER 2024-06-06 14:38 | Outpatient (REF) | payer OTHER, SELFPAY ==
--- NOTE | ~2024-06-06 | MR_ITS ---
CLINICAL HISTORY: M25.312 - Other instability, left shoulder MR left shoulder without gadolinium Comparison: None Findings: Normal alignment without acute fracture. Small AC joint effusion. Yjgdt-hu-soajpdtj glenohumeral joint effusion and synovitis (including at level of rotator cuff interval and axillary recess). Mild synovitis in bicipital tendon sheath. Delaminating fissures on a background of diffuse thinning of the humeral cartilage. Partial thinning and irregularity of the glenoid cartilage. Small glenohumeral osteophytosis. T1 hypointense and T2 intermediate signal intensity proximal humeral lesion likely due to a mildly complex cyst. Bppv-wt-mlngullo subchondral bone marrow edema within the glenoid. Mild subacromial/subdeltoid bursitis. Two neighboring partial-thickness, partial width, articular sided tears of the anterior supraspinatus footprint (series 9 images 13-15) , with the larger component measuring up to 1 x 5 mm (CC x transverse dimensions) in the coronal plane. Background of moderate supraspinatus tendinosis. Pgbc-oh-fhhchqvm subscapularis and mild infraspinatus tendinosis. Mild intra-articular long head of biceps tendinosis. Focal more than 50% fatty infiltration of the supraspinatus musculotendinous junction and less than 50% atrophy of the rest of the rotator cuff muscles. Anterior and inferior labral tear/s cannot be excluded on these nonarthrogram images. No paralabral cyst. IMPRESSION: Two neighboring partial-thickness, partial width, articular sided tears of the anterior supraspinatus footprint. Background of ceah-pz-zuvwcayv rotator cuff tendinosis. Anterior and inferior labral tear/s cannot be excluded on these nonarthrogram images. No paralabral cyst. Ewkn-xb-rwxhuhxw glenohumeral synovitis (correlate clinically for possible adhesive capsulitis). Degenerative glenohumeral cartilage changes including delaminating fissures on a background of more diffuse cartilaginous thinning. This document has been electronically signed by: Valeri Torres MD on 06/07/2024 13:16:29
== END 2024-06-06 14:39 | disposition home or self-care (01) ==
LOC: HO.MRI 14:38
PROVIDERS: PCP Family Medicine; Visit Provider Orthopaedic Surgery
DX: M25.312 Other instability, left shoulder (principal)
CPT/HCPCS: 73221

== ENCOUNTER → 2024-06-06 14:43 | Outpatient (BNV) | payer OTHER, SELFPAY | PROVIDERS: PCP Family Medicine; Visit Provider Radiology Diagnostic Radiology | DX: M65.812 Other synovitis and tenosynovitis, left shoulder (principal); M24.112 Other articular cartilage disorders, left shoulder | CPT/HCPCS: 73221 ==

== ENCOUNTER 2024-06-15 10:35 | Outpatient (REF) | payer OTHER, SELFPAY ==
--- OUTSIDE RECORDS SUMMARY | 2024-06-15 12:40 | XMS_ITS | Clinical Summary ---
Author Organization [facility] Address [address] [place] [address] Phone Care Team Providers Care Drawing Kiln Operator Name Role Phone Berkley Wasserman DO Primary [...] mellitus 12/13/2014 023 Tobacco dependence syndrome 12/13/201407/2022 Encounters Date Type Department Care Team Description 05/18/2024 Orders Only [facility] [address] [facility] [place] [address] Alf Carter MD from Last 3 Months Immunizations Immunization Administration Dates Next Due Influenza, Quadrivalent, Pre [...] Visit [facility] [address] [place] [address] Alf Carter MD [address] [facility] [address] [place] [phone] Health Maintenance Due Date Last Done Comments Breast Cancer Screening 1955 Colorectal Cancer Screening: Annual FOBT 09/28/2004 Colorectal Cancer Screening: Colonoscopy 09/28/2004 Colorectal Cancer Screening: Sigmoidoscopy 09/28/2004 Hepatitis B Vaccine (1 of 3 - Risk 3-dose series) 2015 Diabetes: Ophthalmology Exam 03/26/2020 Diabetes: Pedal Pulse Checked 03/26/2020 Diabetes: Sensory Foot Exam 03/26/2020 Diabetes: Visual Foot Exam 03/26/2020 Diabetes: Hemoglobin A1C 02/25/2023 11/25/2022 Pneumococcal Vaccine: 50+ Ye ars (4 of 4 - PCV20 or PCV21) 04/02/2024 04/02/2019, 12/13/2014, 11/30/2013 Influenza Vaccine (Season Ended) 2024 11/25/2022, 12/11/2021, 12/11/2020, Additional history exists Pneumococcal Vaccine: Peds ( 0 to 5 Years) and At-Risk Patients (6 to 49 Years) Discontinued 04/02/2019, 12/13/2014, 11/30/2013 Procedures Procedure Name Priority Date/Time Associated Diagnosis Comments CALCIUM, URINE, RANDOM Routine 05/18/2024 11:40 AM EDT KAPPA/LAMBDA LIGHT CHAINS, SERUM Routine 05/18/2024 11:14 AM EDT PTH-RELATED PEPTIDE Routine 05/18/2024 1 1:14 AM EDT VITAMIN D 1,25 DIHYDROXY Routine 05/18/2024 11:14 AM EDT PTH, INTACT (HC) Routine 05/18/2024 11:1 4 AM EDT PHOSPHATE ( PHOSPHORUS) Routine 05/18/2024 11:14 AM EDT CALCIUM Routine 05/18/2024 11:14 AM EDT CREATININE, BLOOD Routine 05/18/2024 11: 14 AM EDT BUN Routine 05/18/2024 11:14 AM EDT ELECTROLYTE PANEL Routine 05/18/2024 11: 14 AM EDT from Last 3 Months Results * Calcium, urine, random (05/18/2024 11:40 AM EDT) Urine Calcium Random 15.8 mg/dL See order comments Comment: Reference Range Not established THIS TEST WAS PERFORMED AT: [facility] [address] [place] [address] ??[phone] CHACHA CHAMORRO MD 05/18/2024 11:4 0 AM EDT 05/18/2024 11:40 AM EDT Alf Carter MD LAB URINE ORDERABLES Final Re sult Performing Organization Address [facility] Co de Phone Number [place] See order comments [place] [address] * Creatinine (05/18/2024 11:14 AM EDT) Creatinine Serum 0.99 0.5 - 1.4 mg/dL See order comments eGFR 56 See order comments Comment: Chronic Kidney Disease: ??Estimated GFR < 60 mL/min/1.73m2 Severe Kidney Disease: ??Estimated GFR < 15 mL/min/1.73m2 05/18/2024 11:1 4 AM EDT 05/18/2024 11:14 AM EDT Alf Carter MD LAB BLOOD ORDERABLES Final Re sult Performing Organization Address [facility] de Phone Number [place] See order comments [place] [address] * [place]/Lambda Light Chains, Serum (05/18/2024 11:14 AM EDT) [place] light chains free in Serum 290 176 - 443 mg/dL See order comments Lambda Light Chain, Free,Serum 143 91 - 240 mg/dL See order comments [place]/Lambda LC Ratio 2.03 1.29 - 2.55 See order comments Comment: This assay provides a measurement of the total kappa and the total lambda light chains, ie., the amount of free (unattached) light chain in circulation and the amount of light chain linked to heavy chain in intact immunoglobulin molecules. Assays for serum free light chain only, kappa and lambda with ratio, may be more useful in evaluating and managing light chain gammopathies including those associated with myeloma, lymphoproliferative disorders, and amyloidosis. THIS TEST WAS PERFORMED AT: [facility] [address] [place], [place] ??[phone] GALINA MALDONADO MD,PHD,QUINCY 05/18/2024 11:1 4 AM EDT 05/18/2024 11:14 AM EDT Alf Carter MD LAB [id number] SOLICITED RESULTS Final Result Performing Organization Address [facility] de Phone Number [place] See order comments [place] [address] * PTH, Intact (05/18/2024 11:14 AM EDT) Parathyroid Hormone, Intact 21.0 8.7 - 77.1 pg/mL See order comments 05/18/2024 11:1 4 AM EDT 05/18/2024 11:14 AM EDT Alf Crater MD LAB [id number] SOLICITED RESULTS Final Result Performing Organization Address [facility] Phone Number [place] See order comments [place] [address] * (ABNORMAL) PTH-Related Peptide (05/18/2024 11:14 AM EDT) PTH Related Peptide 10(A) 11 - 20 pg/mL See order comments Comment: This is a C-terminal PTH-RP assay. PTH-RP is useful in the differential diagnosis of hypercalcemia and levels may be elevated in patients with tumor-associated hypercalcemia. Elevated results may also be observed in patients with renal disease. This test was developed and its analytical performance characteristics have been determined by [employer]. It has not been cleared or approved by the FDA. This assay has been validated pursuant to the CLIA regulations and is used for clinical purposes. THIS TEST WAS PERFORMED AT: [facility] [address] [place], [place] ??[phone] GALINA MALDONADO MD,PHD,QUINCY 05/18/2024 11:1 4 AM EDT 05/18/2024 11:14 AM EDT Alf Carter MD LAB BLOOD ORDERABLES Final Re sult Performing Organization Address [facility] de Phone Number [place] See order comments [place] [address] * Vitamin D 1,25 dihydroxy (05/18/2024 11:14 AM EDT) Pathologist [facility] Calcitriol(1,25 di-OH Vit D) 32 18 - 72 pg/mL See order comments Vitamin D3 125 (OH)2 32 pg/mL See order comments Vitamin D2 125 (OH)2 <8 pg/mL See order comments Comment: Vitamin D3, 1,25(OH)2 indicates both endogenous production and supplementation. Vitamin D2, 1,25(OH)2 is an indicator of exogenous sources, such as diet or supplementation. ??Interpretation and therapy are based on measurement of Vitamin D,1,25(OH)2, Total. This test was developed and its analytical performance characteristics have been determined by [facility] [place], [place]. It has not been cleared or approved by the FDA. This assay has been validated pursuant to the CLIA regulations and is used for clinical purposes. THIS TEST WAS PERFORMED AT: [facility]/[address] ??[phone] GABRIEL GARCIA MD,PHD 05/18/2024 11:1 4 AM EDT 05/18/2024 11:14 AM EDT Alf Carter MD LAB BLOOD ORDERABLES Final Re sult Performing Organization Address [facility] Co de Phone Number [place] See order comments [place] [address] * (ABNORMAL) BUN (05/18/2024 11:14 AM EDT) Pathologist [facility] BUN 27(H) 9 - 16 mg/dL See order comments 05/18/2024 11:1 4 AM EDT 05/18/2024 11:14 AM EDT Alf Carter MD LAB BLOOD ORDERABLES Final Re sult Performing Organization Address [facility] Co de Phone Number [place] See order comments [place] [address] * Phosphorus (05/18/2024 11:14 AM EDT) Pathologist [facility] Phosphorus, Serum 3.0 2.7 - 4.5 mg/dL See order comments 05/18/2024 11:1 4 AM EDT 05/18/2024 11:14 AM EDT us Alf Carter MD LAB BLOOD ORDERABLES Final Re sult Performing Organization Address City/[facility]/ZIP Co de Phone Number [place] See order comments [place] [address] * (ABNORMAL) Calcium (05/18/2024 11:14 AM EDT) Calcium 10.3(H) 8.4 - 10.2 mg/dL See order comments 05/18/2024 11:1 4 AM EDT 05/18/2024 11:14 AM EDT us Alf Carter MD LAB BLOOD ORDERABLES Final Re sult Performing Organization Address [facility] Co de Phone Number [place] See order comments [place] [address] * (ABNORMAL) Electrolyte panel (05/18/2024 11:14 AM EDT) Sodium 142 135 - 145 mmol/L See order comments Potassium 3.8 3.3 - 5.1 mmol/L See order comments Chloride 108 96 - 108 mmol/L See order comments Bicarbonate (CO2) 27 22 - 29 mmol/L See order comments Anion Gap 11(L) 12 - 20 See order comments 05/18/2024 11:1 4 AM EDT 05/18/2024 11:14 AM EDT us Alf Carter MD LAB BLOOD ORDERABLES Final Re sult [place] See order comments [place] [address] from Last 3 Months Insurance [facility] ([id number]) [address] [facility] [address] [facility] ([id number]) Care Teams Drawing Kiln Operator Relationship Specialty Start Date End Date Berkley Wasserman DO PCP - General 03/06/20
== END 2024-06-15 10:36 | disposition home or self-care (01) ==
LOC: HO.MAMMO 10:35
PROVIDERS: PCP Family Medicine; Visit Provider Internal Medicine
DX: Z13.820 Encounter for screening for osteoporosis (principal); M89.9 Disorder of bone, unspecified; E28.39 Other primary ovarian failure
CPT/HCPCS: 77080

== ENCOUNTER → 2024-06-15 11:00 | Outpatient (BNV) | payer OTHER, SELFPAY | PROVIDERS: PCP Family Medicine; Visit Provider Radiology Diagnostic Radiology | DX: E28.39 Other primary ovarian failure (principal) | CPT/HCPCS: 77080 ==

== ENCOUNTER 2024-07-01 12:55 | Outpatient (AMB) | payer OTHER, SELFPAY ==
--- NOTE | 2024-07-01 13:00 | MHC.OFFVIS ---
Intake Visit Reasons: OV-Left shoulder MRI review Intake Note: Deyanira is a 68 year old female who presents today for review of her left shoulder MRI results. She states that she has been doing range motion exercises to prevent stiffness. She takes Tylenol as needed for her discomfort. She denies any weakness. Hand Carver Required: Yes Hand Carver Language: Pharmacist Intern Name: [id number] Allergies No Known Allergies [No Known Allergies*] Allergy (Verified 07/01/24 13:08) Medication List - Last Reconciled 07/01/24 by Adonis Montana MD acetaminophen 500 mg PO Q6H PRN albuterol sulfate 90 mcg/actuation 2 puffs PO Q6H PRN albuterol sulfate 2.5 mg (3 mL) inhalation DAILY 30 days amitriptyline 25 mg PO BEDTIME aspirin 81 mg PO DAILY lxpzhslxj-qoziokjn-ojmotuq ala 50-200-25 mg (Biktarvy) 1 tab PO DAILY doxycycline hyclate 100 mg PO BID 10 days fenofibrate 160 mg PO DAILY fluticasone propionate 50 mcg/actuation (Flonase Allergy Relief) 1 spray intranasal DAILY vnowayetztv-gvgtxgsmb-bduhnrsh 100-62.5-25 mcg (Trelegy Ellipta) 1 ea inhalation DAILY gabapentin 100 mg PO TID lidocaine 5% (Lidoderm) 1 patch topical DAILY loratadine (Claritin) 10 mg PO DAILY metformin 500 mg PO DAILY multivitamin 1 tab PO DAILY nebulizers As directed pantoprazole DR 40 mg PO DAILY pseudoephedrine HCl ER (Sudafed 12 Hour) 120 mg PO Q12H rosuvastatin (Crestor) 20 mg PO DAILY sertraline (Zoloft) 25 mg PO DAILY tramadol 50 mg PO Q6H PRN trazodone 100 mg PO BEDTIME PFSH Medical History (Updated 05/19/24 @ 13:48 by Adonis Montana MD) Tremor History of prescribed enteral nutrition feeding Back pain TIA (transient ischemic attack) Pulmonary nodules Tinnitus of right ear Right leg pain Chronic low back pain with bilateral sciatica GERD (gastroesophageal reflux disease) Anxiety CKD (chronic kidney disease) Mild persistent asthma without complication Hyperlipidemia Diabetes Peripheral neuropathy HIV disease COPD (chronic obstructive pulmonary disease) Atelectasis of right lung Surgical History (Updated 05/25/24 @ 16:59 by Melany Hidalgo, ANP-C) H/O colonoscopy Hx of shoulder surgery Hx of tracheostomy Social History Are you a primary care transition mgr to a significant other at home: No Do you presently have visiting nurse or 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 services: 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) Alcohol intake: former Patient Tobacco Use Status: Current everyday Tobacco user Tobacco use type: Cigarette Cigarette Packs Per Day: 1 Cigarettes Per Day: 3 Years Smoked: since 16 years old Physical Exam Const Other: Well-nourished well-developed very friendly female awake alert and oriented x3 in no acute distress Extrem Other: Bilateral upper extremity examination shows good capillary refill, no skin lesions noted, normal sensation light touch Left shoulder examination shows that the surgical incisions are well healed, no erythema, slightly decreased range of motion when compared to her right shoulder, 4+ out of 5 strength with supraspinatus testing, mild discomfort with resisted forward flexion, no instability Office Procedures AMB Joint Injection/Aspiration Joint Injection/Aspiration Primary Site: left shoulder Prep: site was prepped using aseptic technique Injected: 40 mg of, DepoMedrol and 1% plain lidocaine Procedure: The patient tolerated the procedure well Coding 14545 - Large joint Procedure code (CPT) selection complete Results Reviewed Results Reviewed: MRI of the patient's left shoulder shows signal change within the supraspinatus tendon most likely due to rotator cuff tendinosis, no full-thickness rotator cuff tear noted Assessment & Plan Assessment & Plan (1) Impingement syndrome of left shoulder: Code(s): M75.42 - Impingement syndrome of left shoulder Category: Medical Plan Ms. Lamberto Rucker presents with left shoulder pain due to rotator cuff tendinosis. The risks and benefits of a left shoulder cortisone injection were discussed at length with the patient. The patient wished to proceed. She tolerated the injection well. She will continue with her home stretching program. She will contact me prior to her follow-up appointment in 3 months should any questions or concerns arise. Feel free to call me at any time should questions regarding her orthopedic management arise. I spent 22 minutes in reviewing the patient's records and imaging studies, seeing the patient and documenting in the medical record. Orders: Orders AMB Joint Injection/Aspiration Today M75.42 - Impingement syndrome of left shoulder Coding Level of Care Code Est Pt Level 3 (23237) Complex EM visit Add On G2211 Diagnoses Impingement syndrome of left shoulder M75.42 CPT Codes Coding - 00882 Large joint: 13539 - Large joint ([id number])
--- OUTSIDE RECORDS SUMMARY | 2024-07-01 14:03 | XMS_ITS | Clinical Summary ---
Author Organization [facility] Address [address] [place] [address] Phone Care Team Providers Care Manager Materials Management Name Role Phone Berkley Wasserman DO Primary [...] Only [facility] [address] [facility] [place] [address] Alf Carter MD from Last [...] Visit [facility] [address] [place] [address] Alf Carter MD [address] [facility] [address] [place] [phone] Health Maintenance Due Date Last Done Comments [...] Not established THIS TEST WAS PERFORMED AT: [employer] [address] [place] [address] ??[phone] CHACHA CHAMORRO MD 05/18/2024 11:4 0 AM EDT 05/18/2024 11:40 AM EDT Alf Carter MD LAB URINE ORDERABLES Final Re sult Performing Organization Address [facility] Co de Phone Number [place] See order comments [place] [address] * Creatinine (05/18/2024 11:14 AM EDT) Creatinine Serum 0.99 0.5 - 1.4 mg/dL See order comments eGFR 56 See order comments Comment: Chronic Kidney Disease: ??Estimated GFR < 60 mL/min/1.73m2 Severe Kidney Disease: ??Estimated GFR < 15 mL/min/1.73m2 05/18/2024 11:1 4 AM EDT 05/18/2024 11:14 AM EDT Alf Carter MD LAB BLOOD ORDERABLES Final Re sult Performing Organization Address [facility] de Phone Number [place] See order comments [place] [address] * [place], Serum (05/18/2024 11:14 AM EDT) [place] light chains free in Serum 290 176 - 443 mg/dL See order comments [employer] Chain, Free,Serum 143 91 - 240 mg/dL See order comments [place]/[facility] LC Ratio 2.03 1.29 - 2.55 See [...] and amyloidosis. THIS TEST WAS PERFORMED AT: [employer]/[facility] [address] [place], [place] ??[phone] GALINA MALDONADO MD,PHD,QUINCY 05/18/2024 11:1 4 AM EDT 05/18/2024 11:14 AM EDT Alf Carter MD LAB [id number] SOLICITED RESULTS Final Result Performing Organization Address [facility] de Phone Number [place] See order comments [place] [address] * PTH, Intact (05/18/2024 11:14 AM EDT) Parathyroid Hormone, Intact 21.0 8.7 - 77.1 pg/mL See order comments 05/18/2024 11:1 4 AM EDT 05/18/2024 11:14 AM EDT Alf Carter MD LAB [id number] SOLICITED RESULTS Final Result Performing Organization Address [facility] Phone Number [place] See order comments [place] [address] * (ABNORMAL) PTH-Related Peptide (05/18/2024 11:14 AM [...] analytical performance characteristics have been determined by [employer]. It has not been cleared or approved by the FDA. This assay has been validated pursuant to the CLIA regulations and is used for clinical purposes. THIS TEST WAS PERFORMED AT: [employer]/[facility] [address] [place], [place] ??[address] GALINA MALDONADO MD,PHD,QUINCY 05/18/2024 11:1 4 AM EDT 05/18/2024 11:14 AM EDT Alf Carter MD LAB BLOOD ORDERABLES Final Re sult Performing Organization Address [facility] de Phone Number [place] See order comments [place] [address] * Vitamin D 1,25 dihydroxy (05/18/2024 11:14 AM EDT) Pathologist [facility] Calcitriol(1,25 di-OH Vit D) 32 18 - [...] analytical performance characteristics have been determined by [employer] [place], [place]. It has not been cleared or approved by the FDA. This assay has been validated pursuant to the CLIA regulations and is used for clinical purposes. THIS TEST WAS PERFORMED AT: [employer]/[address] ??[phone] GABRIEL GARCIA MD,PHD 05/18/2024 11:1 4 AM EDT 05/18/2024 11:14 AM EDT Alf Carter MD LAB BLOOD ORDERABLES Final Re sult Performing Organization Address [facility] Co de Phone Number [place] See order comments [place] [address] * (ABNORMAL) BUN (05/18/2024 11:14 AM EDT) Pathologist [facility] BUN 27(H) 9 - 16 mg/dL See order comments 05/18/2024 11:1 4 AM EDT 05/18/2024 11:14 AM EDT Alf Carter MD LAB BLOOD ORDERABLES Final Re sult Performing Organization Address [facility] Co de Phone Number [place] See order comments [place] [address] * Phosphorus (05/18/2024 11:14 AM EDT) Pathologist [facility] Phosphorus, Serum 3.0 2.7 - 4.5 mg/dL See order comments 05/18/2024 11:1 4 AM EDT 05/18/2024 11:14 AM EDT us Alf Carter MD LAB BLOOD ORDERABLES Final Re sult Performing Organization Address City/[facility]/ZIP Co de Phone Number [place] See order comments [place] [address] * (ABNORMAL) Calcium (05/18/2024 11:14 AM EDT) Calcium 10.3(H) 8.4 - 10.2 mg/dL See order comments 05/18/2024 11:1 4 AM EDT 05/18/2024 11:14 AM EDT us Alf Carter MD LAB BLOOD ORDERABLES Final Re sult Performing Organization Address [facility] Co de Phone Number [place] See order comments [place] [address] * (ABNORMAL) Electrolyte panel (05/18/2024 11:14 AM [...] order comments [place] [address] from Last 3 Months Insurance [facility][id number]) [facility] [address] [facility] ([id number]) Care Teams Manager Materials Management Relationship Specialty Start Date End Date Berkley Wasserman DO PCP - General 03/06/20
== END 2024-07-01 13:16 | disposition home or self-care (01) ==
LOC: HO.HOS 12:56
PROVIDERS: PCP Family Medicine; Visit Provider Orthopaedic Surgery
DX: M75.42 Impingement syndrome of left shoulder (principal)
CPT/HCPCS: 20610; 99213

== ENCOUNTER → 2024-07-01 12:55 | Outpatient (BNVA) | payer OTHER, SELFPAY | PROVIDERS: PCP Family Medicine; Visit Provider Orthopaedic Surgery | DX: M75.42 Impingement syndrome of left shoulder (principal) | CPT/HCPCS: 20610; 99212; J1010; J2003 ==

== ENCOUNTER 2024-10-06 10:36 | Outpatient (AMB) | payer OTHER, SELFPAY ==
[2024-10-06 10:40] VITALS: BMI 23.4
--- NOTE | 2024-10-06 10:40 | A.OFFVIS_ITS ---
Vital Signs 10/06/24 10:40 Height 4 ft 11 in Weight 116 lb BMI 23.4 Intake Visit Reasons: OV-Left shoulder f/u last inj 07/01/24 Intake Note: Deyanira is a 68 year old female who presents today as a follow up for her Left shoulder injection, last injection 07/01/24. She states that she got fairly good relief from the injection initially. She continues with her home stretching program. She has taken Tylenol which gives her mild relief. Allergies No Known Allergies (No Known Allergies*) Allergy (Verified 10/06/24 10:40) Medication List - Last Reconciled 10/06/24 by Adonis Montana MD acetaminophen 500 mg PO Q6H PRN albuterol sulfate 90 mcg/actuation 2 puffs PO Q6H PRN albuterol sulfate 2.5 mg (3 mL) inhalation DAILY 30 days amitriptyline 25 mg PO BEDTIME aspirin 81 mg PO DAILY wgayypsmh-woohuxkh-xjdqmvz ala 50-200-25 mg (Biktarvy) 1 tab PO DAILY doxycycline hyclate 100 mg PO BID 10 days fenofibrate 160 mg PO DAILY fluticasone propionate 50 mcg/actuation (Flonase Allergy Relief) 1 spray intranasal DAILY jxspgjvukuf-aextjwwah-hhshdlql 100-62.5-25 mcg (Trelegy Ellipta) 1 ea inhalation DAILY gabapentin 100 mg PO TID lidocaine 5% (Lidoderm) 1 patch topical DAILY loratadine (Claritin) 10 mg PO DAILY metformin 500 mg PO DAILY multivitamin 1 tab PO DAILY nebulizers As directed pantoprazole DR 40 mg PO DAILY pseudoephedrine HCl ER (Sudafed 12 Hour) 120 mg PO Q12H rosuvastatin (Crestor) 20 mg PO DAILY sertraline (Zoloft) 25 mg PO DAILY tramadol 50 mg PO Q6H PRN trazodone 100 mg PO BEDTIME PFSH Medical History Tremor History of prescribed enteral nutrition feeding Back pain TIA (transient ischemic attack) Pulmonary nodules Tinnitus of right ear Right leg pain Chronic low back pain with bilateral sciatica GERD (gastroesophageal reflux disease) Anxiety CKD (chronic kidney disease) Mild persistent asthma without complication Hyperlipidemia Diabetes Peripheral neuropathy HIV disease COPD (chronic obstructive pulmonary disease) Atelectasis of right lung Surgical History H/O colonoscopy Hx of shoulder surgery Hx of tracheostomy Social History Are you a primary home health care social worker to a significant other at home: No Do you presently have visiting nurse or other home services: Yes ([employer]) Alcohol intake: former Patient Tobacco Use Status: Current everyday Tobacco user Tobacco use type: Cigarette Cigarette Packs Per Day: 1 Cigarettes Per Day: 3 Years Smoked: since 16 years old Physical Exam Vital Signs: BMI result Body Mass Index 23.4 Const Other: Well-nourished well-developed very friendly female awake alert and oriented x3 in no acute distress Extrem Other: Left shoulder examination shows almost full range of motion when compared to her right shoulder, 4+ out of 5 strength with supraspinatus testing, positive impingement signs, no instability Office Procedures AMB Joint Injection/Aspiration Joint Injection/Aspiration Primary Site: left shoulder Prep: site was prepped using aseptic technique Injected: 40 mg of, DepoMedrol and 1% plain lidocaine Procedure: The patient tolerated the procedure well Coding 96790 - Large joint Procedure code (CPT) selection complete Assessment & Plan Assessment & Plan (1) Impingement syndrome of left shoulder: Code(s): M75.42 - Impingement syndrome of left shoulder Category: Medical Plan Ms. Lamberto Rucker presents with left shoulder pain due to impingement syndrome. The risks and benefits of a left shoulder cortisone injection were discussed at length with the patient. The patient wished to proceed. She tolerated the injection well. She will continue with her home stretching program. She will contact me prior to her follow-up appointment in 3 months should any questions or concerns arise. Feel free to call me at any time should questions regarding her orthopedic management arise. I spent 21 minutes in reviewing the patient's records and imaging studies, seeing the patient and documenting in the medical record. Orders: Orders AMB Joint Injection/Aspiration Today M75.42 - Impingement syndrome of left shoulder Medications: New meloxicam 15 mg PO DAILY PRN 30 tabs 3RF pain Coding Level of Care Code Est Pt Level 3 (54186) Complex EM visit Add On G2211 Diagnoses Impingement syndrome of left shoulder M75.42 CPT Codes Coding - 76346 Large joint: 07035 - Large joint ([id number])
--- OUTSIDE RECORDS SUMMARY | 2024-10-06 11:25 | XMS_ITS | Clinical Summary ---
Author Organization [facility] Address [address] [place] [address] Phone Care Team Providers Care Conductor Pullman Name Role Phone Berkley Wasserman DO Primary [...] 12/13/2014 023 Tobacco dependence syndrome 12/13/201407/2022 Immunizations Immunization Administration Dates Next Due Influenza, [...] Visit [facility] [address] [place] [address] Alf Carter MD [address] [facility] [address] [place] [address] Health Maintenance Due Date Last Done Comments [...] PCV21) 04/02/2024 04/02/2019, 12/13/2014, 11/30/2013 Influenza Vaccine (#1) 2024 3, 12/11/2021, 12/11/2020, Additional history exists Pneumococcal Vaccine: Peds ( 0 to 5 Years) and At-Risk Patients (6 to 49 Years) Discontinued 04/02/2019, 12/13/2014, 11/30/2013 Insurance [address] [place] [address] [facility] ([id number]) [address] [place] [address] [facility] ([id number]) Care Teams Conductor Pullman Relationship Specialty Start Date End Date Berkley Wasserman DO PCP - General 03/06/20
== END 2024-10-06 10:54 | disposition home or self-care (01) ==
LOC: HO.HOS 10:37
PROVIDERS: PCP Family Medicine; Visit Provider Orthopaedic Surgery
DX: M75.42 Impingement syndrome of left shoulder (principal)
CPT/HCPCS: 20610; 99213

== ENCOUNTER → 2024-10-06 10:36 | Outpatient (BNVA) | payer OTHER, SELFPAY | PROVIDERS: PCP Family Medicine; Visit Provider Orthopaedic Surgery | DX: M25.512 Pain in left shoulder (principal); M75.42 Impingement syndrome of left shoulder | CPT/HCPCS: 20610; 99212; J1010; J2003 ==

== ENCOUNTER 2024-10-27 11:38 | Outpatient (REF) | payer OTHER, SELFPAY | END 2024-10-27 11:39 | disposition home or self-care (01) | LOC: HO.MAMMO 11:38 | PROVIDERS: PCP Family Medicine; Visit Provider Family Medicine | DX: Z12.31 Encounter for screening mammogram for malignant neoplasm of breast (principal) | CPT/HCPCS: 77063; 77067 ==

== ENCOUNTER → 2024-10-27 12:15 | Outpatient (BNV) | payer OTHER, SELFPAY | PROVIDERS: PCP Family Medicine; Visit Provider Internal Medicine | DX: Z12.31 Encounter for screening mammogram for malignant neoplasm of breast (principal) | CPT/HCPCS: 77063; 77067 ==

== ENCOUNTER 2024-11-11 13:00 | Outpatient (REF) | payer OTHER, SELFPAY ==
--- NOTE | ~2024-11-11 | CT_ITS ---
CLINICAL HISTORY: J98.11 - Atelectasis CT chest without contrast Comparison: CT/REG/PA/SR - CT CHEST WITHOUT IV CONTRAST - 10/13/23 11:10 EDT Findings: The heart size is normal. The visualized thyroid and mediastinum are unremarkable. There is a bandlike focus of atelectasis within the medial aspect of the right middle lobe and there is a linear focus of atelectasis within the medial aspect of the lingula. There are mild dependent ground-glass opacities within the bilateral lower lobes, compatible with atelectasis. These are new since the prior study. There are minimal peripheral reticular opacities within the upper lobes, without change, compatible with interstitial scarring. No suspicious focus of infiltrate or evidence of pleural effusion. 1.9 cm adenoma within the left adrenal gland without change. 1 cm adenoma within the right adrenal gland without change. No acute abnormality of the visualized abdomen. The bones are intact. IMPRESSION: There are foci of atelectasis within the bilateral lungs. This document has been electronically signed by: Renuka Robledo MD on 11/12/2024 12:23:53
--- OUTSIDE RECORDS SUMMARY | 2024-11-11 15:02 | XMS_ITS | Clinical Summary ---
Author Organization [facility] Address [address] [place] [address] Phone Care Team Providers Care Canine Enforcement Officer Name Role Phone Berkley Wasserman DO Primary [...] Visit [facility] [address] [place] [address] Alf Carter MD [address] [facility] [address] [place] [address] Health Maintenance Due Date Last Done Comments [...] Discontinued 04/02/2019, 12/13/2014, 11/30/2013 Insurance [address] [place] [address] [facility] ([id number]) [address] [place] [address] [facility] ([id number]) Care Teams Canine Enforcement Officer Relationship Specialty Start Date End Date Berkley Wasserman DO PCP - General 03/06/20
== END 2024-11-11 13:01 | disposition home or self-care (01) ==
LOC: HO.CT 13:00
PROVIDERS: PCP Family Medicine; Visit Provider Hospitalist
DX: J98.11 Atelectasis (principal)
CPT/HCPCS: 71250

== ENCOUNTER → 2024-11-11 13:02 | Outpatient (BNV) | payer OTHER, SELFPAY | PROVIDERS: PCP Family Medicine; Visit Provider Radiology Diagnostic Radiology | DX: J98.11 Atelectasis (principal) | CPT/HCPCS: 71250 ==

== ENCOUNTER 2024-11-25 13:22 | Outpatient (REF) | payer OTHER, SELFPAY ==
--- OUTSIDE RECORDS SUMMARY | 2024-11-25 14:51 | XMS_ITS | Clinical Summary ---
Author Organization [facility] Address [address] [place] [address] Phone Care Team Providers Care Department Supervisor Name Role Phone Berkley Wasserman DO [...] Type 2 diabetes mellitus 12/13/2014 023 Tobacco use disorder 12/13/2014 12/30/2022 Immunizations Immunization Administration Dates Next Due Influenza, [...] Visit [facility] [address] [place] [address] Alf Carter MD [address] [facility] [address] [place] [address] Health Maintenance Due Date Last Done Comments [...] Discontinued 04/02/2019, 12/13/2014, 11/30/2013 Insurance [address] [place] [address] [facility] ([id number]) [address] [place] [address] [facility] ([id number]) Care Teams Department Supervisor Relationship Specialty Start Date End Date Berkley Wasserman DO PCP - General 03/06/20
[2024-11-25 16:11] LABS: MANUAL DIFF FLAG NO
[2024-11-25 16:34] LABS: Hematocrit 45.6 % (37.0-47.0); Hemoglobin 15.4 g/dl (12.0-16.0); Imm Gran Abs Auto 0.04 X10*3/uL (0.00-0.03); Imm Gran Pct Auto 0.4 % (0.0-0.4); Lymphocytes Absolute Auto 3.2 X10*3/uL (1.2-4.9); Mean Corpuscular HGB Conc 33.8 g/dl (31.0-35.0); Mean Corpuscular Hemoglobin 34.1 pg (27.0-33.0); Mean Corpuscular Volume 100.9 fL (80.0-98.0); NRBC Abs Auto 0.000 X10*3/uL (0.0-0.012); NRBC Pct Auto 0.0 /100WBC (0.0-0.2); Platelet Count 335 X10*3/uL (160-400); Red Blood Count 4.52 X10*6/uL (4.20-5.50); White Blood Count 9.7 X10*3/uL (4.8-10.8)
[2024-11-25 16:47] LABS: Alanine Aminotransferase 25 U/L (0-31); Albumin Level 4.5 g/dL (3.5-5.0); Alkaline Phosphatase 49 U/L (39-117); Anion Gap 13 (12-20); Aspartate Amino Transferase 29 U/L (5-31); Blood Urea Nitrogen 22 mg/dL (9-16); Calcium 10.4 mg/dL (8.4-10.2); Carbon Dioxide 28 mmol/L (22-29); Chloride 106 mmol/L (96-108); Cholesterol 155 mg/dL (<200); Estimated Glomerular Filt Rate 57; HDL Cholesterol 36 mg/dL (>40); Potassium 3.8 mmol/L (3.3-5.1); Sodium 143 mmol/L (135-145); Total Protein 7.7 g/dL (6.5-8.0); Triglycerides 241 mg/dL (<150)
[2024-11-25 19:01] LABS: Reflex LDLD? No
[2024-11-26 05:47] LABS: HBS Num1 25.01 mIU/mL (0-7.99); HBsAGNum1 0.40 S/CO (0.00-0.99); Hepatitis B Surface Antigen Negative (Negative); ~HepC Num1 0.89 S/CO (0.00-0.79); ~Hepatitis B Surface Antibody REACTIVE (Nonreactive)
[2024-11-26 07:18] LABS: ~HepC Num2 0.16
[2024-11-26 07:19] LABS: ~HepC Num3 0.14; ~Hepatitis C Antibody NONREACTIVE (Nonreactive)
[2024-11-26 15:53] LABS: HIV RNA PCR Qn Copies 147 copies/mL (NOT DETECTED); HIV RNA PCR Qn Log Copies 2.17 (NOT DETECTED)
[2024-11-28 08:19] LABS: TS Negative Control Passed; TS Panel A 0; TS Panel B 0; TS Positive Control Passed; TSpotTB Negative (Negative)
[2024-11-30 22:03] LABS: Absolute CD3 Count 2601 cells/uL (840-3060); Absolute CD8 Count 1032 cells/uL (180-1170); Percent CD3 Cells 77 % (57-85); Percent CD8 Cells 30 % (12-42)
== END 2024-11-25 13:23 | disposition home or self-care (01) ==
LOC: HO.HHCL 13:22
PROVIDERS: PCP Family Medicine; Visit Provider Internal Medicine
DX: B20 Human immunodeficiency virus [HIV] disease (principal); Z11.1 Encounter for screening for respiratory tuberculosis; Z13.6 Encounter for screening for cardiovascular disorders; Z13.1 Encounter for screening for diabetes mellitus
CPT/HCPCS: 36415; 80053; 80061; 83036; 85025; 86359; 86360; 86481; 86592; 86706; 86803; 87340; 87536

== ENCOUNTER 2024-11-29 09:53 | Outpatient (AMB) | payer OTHER, SELFPAY ==
[2024-11-29 09:57] VITALS: BP 100/56; PULSE 88; O2SAT 97; BMI 24.5
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
--- OUTSIDE RECORDS SUMMARY | 2024-11-29 11:21 | XMS_ITS | Clinical Summary ---
Author Organization [facility] Address [address] [place] [phone] Phone Care Team Providers Care Instrument Repairer Helper Name Role Phone Berkley Wasserman DO Primary [...] Visit [facility] [address] [place] [address] Alf Carter MD [address] [facility] [address] [place] [address] Health Maintenance Due Date Last Done Comments [...] Discontinued 04/02/2019, 12/13/2014, 11/30/2013 Insurance [address] [place] [address] [facility] ([id number]) [address] [place] [address] [facility] ([id number]) Care Teams Instrument Repairer Helper Relationship Specialty Start Date End Date Berkley Wasserman DO PCP - General 03/06/20
== END 2024-11-29 10:14 | disposition home or self-care (01) ==
LOC: HO.HPS 09:54
PROVIDERS: PCP Family Medicine; Visit Provider Hospitalist
DX: J44.1 Chronic obstructive pulmonary disease with (acute) exacerbation (principal); J98.11 Atelectasis; R91.8 Other nonspecific abnormal finding of lung field
CPT/HCPCS: 99214; G2211

== ENCOUNTER → 2024-11-29 09:53 | Outpatient (BNVA) | payer OTHER, SELFPAY | PROVIDERS: PCP Family Medicine; Visit Provider Hospitalist | DX: J44.1 Chronic obstructive pulmonary disease with (acute) exacerbation (principal); J98.11 Atelectasis; R91.8 Other nonspecific abnormal finding of lung field | CPT/HCPCS: 99212 ==

== ENCOUNTER 2025-01-05 10:53 | Outpatient (REF) | payer OTHER, SELFPAY ==
--- OUTSIDE RECORDS SUMMARY | 2025-01-05 13:17 | XMS_ITS | Clinical Summary ---
Author Organization [facility] Address [address] [place] [address] [address] [place] [phone] Phone Care Team Providers Care Mathematical Scientist Name Role Phone Berkley Wasserman DO Primary [...] DAY AT THE SAME TIME 2 Active Dovato 50-300 MG tablet Take 1 tablet by mouth 1 (one) time each day 5 Active Active Problems Problem Noted Date Diagnosed Date Hypercalcemia 11/24/2023 Chronic kidney disease, stage 2 (mild) 3 Polyneuropathy 11/25/2022 12/30/2022 Gastroesophageal reflux disease 11/25/2022 12/30/2022 Anxiety 11/25/2022 12/30/2022 Leukocytosis 01/29/2022 12/30/2022 Chronic kidney disease, stage 2 (mild) 1 Human immunodeficiency virus infection 1 Renal disorder due to type 2 diabetes mellitus 0 04/24/2020 Stage 3a chronic kidney disease 04/24/2020 12/30/2022 Mild persistent asthma 12/13/2014 3 Hyperlipidemia 12/13/2014 12/30/2022 Chronic obstructive pulmonary disease 12/13/2014 12/30/2022 Type 2 diabetes mellitus 12/13/2014 023 Tobacco use disorder 12/13/2014 12/30/2022 Encounters Date Type Department Care Team Description 12/20/2024 1:00 PM EDT Office Visit [facility] [address] [place], [place] [address] Alf Carter MD Chronic kidney disease, stage 2 (mild) (Primary Dx); Stage 3a chronic kidney disease (HCC) from Last 3 Months Immunizations Immunization Administration [...] Used Date Smoking Tobacco: Every Day Cigarettes Tobacco Cessation:Ready to Q uit: Not Asked; Counseling Given: Not Answered Alcohol Use Standard Drinks/Week Comments No 0 (1 standard drink = 0.6 oz pur e alcohol) Comments Unknown Sex and Gender Information Value Date Recorded Sex Assigned at Not on file Legal Sex Female 4:43 PM EST Gender Identity Not on file Sexual Orientation Not on file Last Filed Vital Signs Vital Sign Reading Time Taken Comments Blood Pressure 110/62 12/20/2024 12:55 PM EDT Pulse 88 12/20/2024 12:55 PM EDT Temperature - - Respiratory Rate - - Oxygen Saturation 96% 12/20/2024 12:55 PM EDT Inhaled Oxygen Concentration - - Weight 57.2 kg (126 lb 3.2 oz) 12/20/2024 12:55 PM EDT Height 157.5 cm (5' 2 ) 04/27/2019 12:00 PM EST Body Mass Index 23.08 04/27/2019 12:00 PM EST Plan of Treatment Upcoming Encounters Date Type Department Care Team (Late st Contact Info) Description 12/19/2025 1:00 PM EDT Office Visit [facility] [address] [place] [address] Alf Carter MD [address] [facility] [address] [place] [phone] Health Maintenance Due Date Last Done Comments [...] 04/02/2019, 12/13/2014, 11/30/2013 Influenza Vaccine (#1) 2024 , 12/11/2021, 12/11/2020, Additional history exists Pneumococcal Vaccine: Peds ( 0 to 5 Years) and At-Risk Patients (6 to 49 Years) Discontinued 04/02/2019, 12/13/2014, 11/30/2013 Insurance [address] [place] [address] [facility] ([id number]) * Guarantor: Deyanira Hernandez Account Type Relation to Patient Date of Phone Billing Address Personal/Family Self 1955 [address] [place] [address] [facility] ([id number]) Care Teams Mathematical Scientist Relationship Specialty Start Date End Date Berkley Wasserman DO [address] [place] [phone] PCP - General 03/06/20
[2025-01-05 13:19] LABS: Hematocrit 46.7 % (37.0-47.0); Hemoglobin 15.4 g/dl (12.0-16.0); Mean Corpuscular HGB Conc 33.0 g/dl (31.0-35.0); Mean Corpuscular Hemoglobin 33.4 pg (27.0-33.0); Mean Corpuscular Volume 101.3 fL (80.0-98.0); NRBC Abs Auto 0.000 X10*3/uL (0.0-0.012); NRBC Pct Auto 0.0 /100WBC (0.0-0.2); Platelet Count 315 X10*3/uL (160-400); Red Blood Count 4.61 X10*6/uL (4.20-5.50); White Blood Count 10.8 X10*3/uL (4.8-10.8)
[2025-01-05 14:22] LABS: Microalbum/Creatinine Ratio Ur 9.4 ug/mg cr (<30)
[2025-01-05 14:46] LABS: Alanine Aminotransferase 28 U/L (0-31); Albumin Level 5.1 g/dL (3.5-5.0); Alkaline Phosphatase 47 U/L (39-117); Anion Gap 8 (12-20); Aspartate Amino Transferase 33 U/L (5-31); Blood Urea Nitrogen 25 mg/dL (9-16); Calcium 12.2 mg/dL (8.4-10.2); Carbon Dioxide 34 mmol/L (22-29); Chloride 110 mmol/L (96-108); Cholesterol 140 mg/dL (<200); Estimated Glomerular Filt Rate 56; HDL Cholesterol 42 mg/dL (>40); Potassium 4.9 mmol/L (3.3-5.1); Sodium 147 mmol/L (135-145); Total Protein 8.1 g/dL (6.5-8.0); Triglycerides 200 mg/dL (<150)
[2025-01-05 14:48] LABS: Free T4 (Free Thyroxine) 1.23 ng/dL (0.71-1.85); Thyroid Stimulating Hormone 1.02 uIU/mL (0.32-4.0)
[2025-01-06 04:24] LABS: HBS Num1 21.74 mIU/mL (0-7.99); HBsAGNum1 0.39 S/CO (0.00-0.99); Hepatitis B Surface Antigen Negative (Negative); ~HepC Num1 0.13 S/CO (0.00-0.79); ~Hepatitis B Surface Antibody REACTIVE (Nonreactive); ~Hepatitis C Antibody Nonreactive (Nonreactive)
[2025-01-07 19:24] LABS: HIV RNA PCR Qn Copies 180 copies/mL (NOT DETECTED); HIV RNA PCR Qn Log Copies 2.26 (NOT DETECTED)
[2025-01-10 10:49] LABS: HIV 1 Antibody POSITIVE (NEGATIVE); HIV 2 Antibody NEGATIVE (NEGATIVE)
[2025-01-12 23:19] LABS: Absolute CD8 Count 1031 cells/uL (180-1170); Percent CD8 Cells 32 % (12-42)
== END 2025-01-05 10:54 | disposition home or self-care (01) ==
LOC: HO.HHCL 10:53
PROVIDERS: PCP Family Medicine; Visit Provider Family Medicine
DX: Z00.00 Encounter for general adult medical examination without abnormal findings (principal); E11.00 Type 2 diabetes mellitus with hyperosmolarity without nonketotic hyperglycemic-hyperosmolar coma (NKHHC); E11.22 Type 2 diabetes mellitus with diabetic chronic kidney disease; N18.30 Chronic kidney disease, stage 3 unspecified; E78.49 Other hyperlipidemia; F41.9 Anxiety disorder, unspecified; B20 Human immunodeficiency virus [HIV] disease; J44.9 Chronic obstructive pulmonary disease, unspecified; R91.8 Other nonspecific abnormal finding of lung field; Z86.73 Personal history of transient ischemic attack (TIA), and cerebral infarction without residual deficits; D72.829 Elevated white blood cell count, unspecified; K21.9 Gastro-esophageal reflux disease without esophagitis; G62.9 Polyneuropathy, unspecified; M54.50 Low back pain, unspecified; G89.29 Other chronic pain; M25.512 Pain in left shoulder; H02.403 Unspecified ptosis of bilateral eyelids; Z71.3 Dietary counseling and surveillance; Z71.82 Exercise counseling; J31.0 Chronic rhinitis; Z11.4 Encounter for screening for human immunodeficiency virus [HIV]; Z01.84 Encounter for antibody response examination
CPT/HCPCS: 36415; 80048; 80061; 80076; 82043; 82306; 82570; 84439; 84443; 85027; 86360; 86701; 86702; 86706; 86803; 87340; 87389; 87536

== ENCOUNTER 2025-01-06 10:53 | Outpatient (REF) | payer OTHER, SELFPAY ==
--- NOTE | ~2025-01-06 | XR_ITS ---
EXAMINATION: Left femur and left knee. CLINICAL INDICATION: Pain. COMPARISON: Right knee 03/19/2024. TECHNIQUE: Left femur 2 views. Left knee 2 views. FINDINGS: Left femur: The entire left femur is visualized and appears unremarkable. No fracture, lytic or sclerotic process seen. The soft tissues are normal. Left knee: Is mild reduction of patellofemoral and medial compartment joint space. No visible fracture or bony abnormality seen. The soft tissues are normal. XR/XR femur LT 2V IMPRESSION: Unremarkable left femur. Unremarkable left knee. Electronically signed by: Brando Fournier MD 01/06/2025 01:32 PM EST
--- NOTE | ~2025-01-06 | XR_ITS ---
EXAMINATION: Left femur and left knee. CLINICAL INDICATION: Pain. COMPARISON: Right knee 03/19/2024. TECHNIQUE: Left femur 2 views. Left knee 2 views. FINDINGS: Left femur: The entire left femur is visualized and appears unremarkable. No fracture, lytic or sclerotic process seen. The soft tissues are normal. Left knee: Is mild reduction of patellofemoral and medial compartment joint space. No visible fracture or bony abnormality seen. The soft tissues are normal. XR/XR knee LT 4V IMPRESSION: Unremarkable left femur. Unremarkable left knee. Electronically signed by: Brando Fournier MD 01/06/2025 01:32 PM EST
--- OUTSIDE RECORDS SUMMARY | 2025-01-06 13:35 | XMS_ITS | Clinical Summary ---
Author Organization [facility] Address [address] [place] [address] [address] [place] [phone] Phone Care Team Providers Care Business Development Professional Name Role Phone Berkley Wasserman DO Primary [...] Visit [facility] [address] [place], [place] [address] Alf Carter MD Chronic kidney disease, stage [...] Visit [facility] [address] [place] [address] Alf Carter MD [address] [facility] [address] [place] [phone] Health Maintenance Due Date Last Done Comments [...] Years) Discontinued 04/02/2019, 12/13/2014, 11/30/2013 Insurance [address] [place] [address] [facility] MCR ([id number]) [facility] MCR ([id number]) Care Teams Business Development Professional Relationship Specialty Start Date End Date Berkley Wasserman DO [address] [place] [id number] PCP - General 03/06/20
== END 2025-01-06 10:54 | disposition home or self-care (01) ==
LOC: HO.HHCX 10:53
PROVIDERS: Visit Provider Family Medicine
DX: M79.605 Pain in left leg (principal)
CPT/HCPCS: 73552; 73564

== ENCOUNTER → 2025-01-06 10:55 | Outpatient (BNV) | payer OTHER, SELFPAY | PROVIDERS: Visit Provider Radiology Diagnostic Radiology | DX: M25.562 Pain in left knee (principal); M79.652 Pain in left thigh | CPT/HCPCS: 73552; 73564 ==

== ENCOUNTER 2025-01-10 14:17 | Outpatient (AMB) | payer OTHER, SELFPAY ==
[2025-01-10 14:31] VITALS: BMI 24.8
--- NOTE | 2025-01-10 14:31 | A.OFFVIS_ITS ---
Vital Signs 01/10/25 14:31 Height 4 ft 11 in Weight 123 lb BMI 24.8 Handedness Right Intake Visit Reasons: OV-Left shoulder f/u last inj 10/06/24 Intake Note: Deyanira is a 69 year old female who presents with complaints of pain along the lateral aspect of her left shoulder. She describes her pain as achy in nature. She denies any weakness. She has tried Tylenol and anti-inflammatory medicines which gave her mild relief. She has had cortisone injections in the past which have given her good relief. Telephone Service Representative Required: Yes Telephone Service Representative Language: Rand Tacker Services: Telephone Service Representative Present (ipad) Telephone Service Representative Name: Miguelangel Gan [phone] Allergies No Known Allergies (No Known Allergies*) Allergy (Verified 01/10/25 14:33) Medication List - Last Reconciled 01/10/25 by Adonis Montana MD acetaminophen 500 mg PO Q6H PRN albuterol sulfate 90 mcg/actuation 2 puffs PO Q6H PRN albuterol sulfate 2.5 mg (3 mL) inhalation DAILY 30 days amitriptyline 25 mg PO BEDTIME amoxicillin-pot clavulanate 875-125 mg 1 tab PO BID 10 days aspirin 81 mg PO DAILY qpbqwqgwz-avdgzaze-eyvkbew ala 50-200-25 mg (Biktarvy) 1 tab PO DAILY fenofibrate 160 mg PO DAILY fluticasone propionate 50 mcg/actuation (Flonase Allergy Relief) 1 spray intranasal DAILY pzvhgxsennu-idwknbzsw-ktyzalkp 100-62.5-25 mcg (Trelegy Ellipta) 1 ea inhalation DAILY gabapentin 100 mg PO TID lidocaine 5% (Lidoderm) 1 patch topical DAILY loratadine (Claritin) 10 mg PO DAILY meloxicam 15 mg PO DAILY PRN metformin 500 mg PO DAILY multivitamin 1 tab PO DAILY nebulizers As directed pantoprazole DR 40 mg PO DAILY pseudoephedrine HCl ER (Sudafed 12 Hour) 120 mg PO Q12H rosuvastatin (Crestor) 20 mg PO DAILY sertraline (Zoloft) 25 mg PO DAILY tramadol 50 mg PO Q6H PRN trazodone 100 mg PO BEDTIME PFSH Medical History Tremor History of prescribed enteral nutrition feeding Back pain TIA (transient ischemic attack) Pulmonary nodules Tinnitus of right ear Right leg pain Chronic low back pain with bilateral sciatica GERD (gastroesophageal reflux disease) Anxiety CKD (chronic kidney disease) Mild persistent asthma without complication Hyperlipidemia Diabetes Peripheral neuropathy HIV disease COPD (chronic obstructive pulmonary disease) Atelectasis of right lung Surgical History H/O colonoscopy Hx of shoulder surgery Hx of tracheostomy Social History Are you a primary critical care physician assistant to a significant other at home: No Do you presently have visiting nurse or 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 home services: 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) Alcohol intake: former Patient Tobacco Use Status: Current everyday Tobacco user Tobacco use type: Cigarette Cigarette Packs Per Day: 1 Cigarettes Per Day: 3 Years Smoked: since 16 years old Physical Exam Vital Signs: BMI result Body Mass Index 24.8 Const Other: Well-nourished well-developed very friendly female awake alert and oriented x3 in no acute distress Extrem Other: Left shoulder examination shows slightly decreased range of motion when compared to her right shoulder, 4+ out of 5 strength with supraspinatus testing, positive impingement signs, no instability, pain with resisted forward flexion Office Procedures AMB Joint Injection/Aspiration Joint Injection/Aspiration Primary Site: Left Shoulder Prep: site was prepped using aseptic technique Injected: 40 mg of, DepoMedrol, with 3 mL of and 1% plain Lidocaine Procedure: The patient tolerated the procedure well Coding 73786 - Large joint Procedure code (CPT) selection complete Assessment & Plan Assessment & Plan (1) Left shoulder pain: Code(s): M25.512 - Pain in left shoulder Category: Medical Plan Ms. Lamberto Rucker presents with left shoulder pain due to rotator cuff tendinitis. The risks and benefits of a left shoulder cortisone injection were discussed at length with the patient. The patient wished to proceed. She tolerated the injection well. She will continue with her home exercise program. She will contact me prior to her follow-up appointment in 3 months should any questions or concerns arise. Feel free to call me at any time should questions regarding her orthopedic management arise. I spent 22 minutes in reviewing the patient's records and imaging studies, seeing the patient and documenting in the medical record. Orders: Orders AMB Joint Injection/Aspiration 01/10/25 M25.512 - Pain in left shoulder Medications: Refilled meloxicam 15 mg PO DAILY PRN 30 tabs 3RF pain Coding Level of Care Code Est Pt Level 3 (47936) Complex EM visit Add On G2211 Diagnoses Left shoulder pain M25.512 CPT Codes Coding - 50584 Large joint: 36675 - Large joint ([id number])
== END 2025-01-10 15:02 | disposition home or self-care (01) ==
LOC: HO.HOS 14:17
PROVIDERS: Visit Provider Orthopaedic Surgery
DX: M25.512 Pain in left shoulder (principal)
CPT/HCPCS: 20610; 99213

== ENCOUNTER → 2025-01-10 14:17 | Outpatient (BNVA) | payer OTHER, SELFPAY | PROVIDERS: Visit Provider Orthopaedic Surgery | DX: M25.512 Pain in left shoulder (principal) | CPT/HCPCS: 20610; J1010; J2003 ==

== ENCOUNTER 2025-01-14 09:33 | Outpatient (REF) | payer OTHER, SELFPAY ==
--- OUTSIDE RECORDS SUMMARY | 2025-01-14 10:08 | XMS_ITS | Clinical Summary ---
Author Organization [facility] Address [address] [place] [address] [place] [phone] Phone Care Team Providers Care Order To Delivery Supervisor Name Role Phone Berkley Wasserman DO [...] Visit [facility] [address] [place], [place] [address] Alf Carter MD Chronic kidney disease, stage [...] Care Team (Late st Contact Info) Description 02/21/2025 3:00 PM EST Office Visit [facility] [address] [place] [address] Alf Carter MD [address] [phone] 12/19/2025 1:00 PM EDT Office Visit [facility] [address] [place] [phone] Alf Carter MD [address] [phone] Health Maintenance Due Date Last Done Comments [...] 49 Years) Discontinued 04/02/2019, 12/13/2014, 11/30/2013 Insurance [facility] ([id number]) [facility] ([id number]) [place] [phone] Care Teams Order To Delivery Supervisor Relationship Specialty Start Date End Date Berkley Wasserman DO [address] [place] [address] PCP - General 03/06/20
[2025-01-14 11:06] LABS: Alanine Aminotransferase 27 U/L (0-31); Alkaline Phosphatase 50 U/L (39-117); Aspartate Amino Transferase 22 U/L (5-31)
[2025-01-14 11:08] LABS: Parathyroid Hormone Intact 28.0 pg/mL (8.7-77.1)
[2025-01-17 20:48] LABS: Calcium, Random Urine 14.8 mg/dL
[2025-01-20 12:58] LABS: VITAMIN D (1,25 OH) D3 43 pg/mL; Vit D (1,25-Dihydroxy) Total 43 pg/mL (18-72); Vitamin D (1,25 OH) D2 <8 pg/mL
== END 2025-01-14 09:34 | disposition home or self-care (01) ==
LOC: HO.LAB 09:33
PROVIDERS: PCP Family Medicine; Visit Provider Internal Medicine Nephrology
DX: E83.52 Hypercalcemia (principal); Z13.21 Encounter for screening for nutritional disorder
CPT/HCPCS: 36415; 82164; 82247; 82248; 82306; 82310; 82570; 82652; 83970; 84075; 84100; 84450; 84460

== ENCOUNTER 2025-02-16 12:50 | Outpatient (REF) | payer OTHER, SELFPAY ==
--- NOTE | 2025-02-16 | EMG_ITS ---
Chief complaint: Pain in left leg Referred by: Berkley Wasserman DO Procedure done: NCS and EMG of left leg Left peroneal and tibial motor studies were performed with F responses and tibial H-reflex. Left superficial peroneal and sural sensory studies were performed and paraspinal and some limb muscles were tested with a needle. Findings: Left peroneal sensory and motor responses were absent. Tibial motor response was with a normal range. Sural study was normal. Paraspinal needle examination did not reveal any significant abnormality. Limb needle examination was limited by limited effort. No activity was noted in extensor digitorum brevis and significantly reduced in tibialis anterior. 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
--- OUTSIDE RECORDS SUMMARY | 2025-02-16 12:52 | XMS_ITS | Clinical Summary ---
Author Organization [facility] Address [address] [place] [address] [place] [phone] Phone Care Team Providers Care Fabrication Technician Name Role Phone Berkley Wasserman DO Primary [...] Visit [facility] [address] [place], [place] [address] Alf Carter MD Chronic kidney disease, stage [...] Visit [facility] [address] [place] [address] Alf Carter MD [address] [phone] 12/19/2025 1:00 PM EDT Office Visit [facility] [address] [place] [id number] Alf Carter MD [address] [phone] Health Maintenance Due Date Last Done Comments [...] Associated Diagnosis Comments CALCIUM, URINE, RANDOM Routine 01/14/2025 10:37 AM EST Hypercalcemia CREATININE, URINE, RANDOM Routine 01/14/2025 10:37 AM EST Hypercalcemia PTH, INTACT (HC) Routine 01/14/2025 9:55 AM EST BILIRUBIN, DIRECT Routine 01/14/2025 9:5 5 AM EST BILIRUBIN, TOTAL Routine 01/14/2025 9:55 AM EST ALKALINE PHOSPHATASE Routine 01/14/2025 9:55 AM EST Hypercalcemia ALT Routine 01/14/2025 9:55 AM EST Hypercalcemia AST Routine 01/14/2025 9:55 AM EST Hypercalcemia ANGIOTENSIN CONVERTING ENZYME Routine 01/14/2025 9:55 AM EST Hypercalcemia VITAMIN D 1,25 DIHYDROXY Routine 01/14/2025 9:55 AM EST Hypercalcemia VITAMIN D 25 HYDROXY Routine 01/14/2025 9:55 AM EST Hypercalcemia PHOSPHATE ( PHOSPHORUS) Routine 01/14/2025 9:55 AM EST Hypercalcemia from Last 3 Months Results * Urine Creatinine, random (01/14/2025 10:37 AM EST) Creatinine, Urine 70.23 mg/dL See order comments Urine Urine specimen obtained by clean catch procedure / Unknown 01/14/2025 10:37 AM EST 01/14/2025 10:37 AM EST us Alf Carter MD LAB URINE ORDERABLES Final Re sult Performing Organization Address [facility] Co de Phone Number [facility] See order comments [place] [address] * Calcium, urine, random (01/14/2025 10:37 AM EST) Urine Calcium Random 14.8 mg/dL See order comments Comment: Reference Range Not established THIS TEST WAS PERFORMED AT: [facility] [address] [phone] CHACHA CHAMORRO MD Urine Urine specimen obtained by clean catch procedure / Unknown 01/14/2025 10:37 AM EST 01/14/2025 10:37 AM EST us Alf Carter MD LAB URINE ORDERABLES Final Re sult [facility] See order comments [place] [address] * PTH, Intact (01/14/2025 9:55 AM EST) Parathyroid Hormone, Intact 28.0 8.7 - 77.1 pg/mL See order comments 01/14/2025 9:55 AM EST 01/14/2025 9:55 AM EST Alf Carter MD LAB BLOOD ORDERABLES Final Re sult Performing Organization Address [facility] Co de Phone Number [place] See order comments [place] [address] * Vitamin D 1,25 dihydroxy (01/14/2025 9:55 AM EST) Vitamin D, 1,25-Dihydroxy 43 18 - 72 pg/mL See order comments Vitamin D3 125 (OH)2 43 pg/mL See order comments Vitamin D2 125 (OH)2 <8 pg/mL See order comments Comment: Vitamin D3, 1,25(OH)2 indicates both endogenous production and supplementation. Vitamin D2, 1,25(OH)2 is an indicator of exogenous sources, such as diet or supplementation. Interpretation and therapy are based on measurement of Vitamin D,1,25(OH)2, Total. This test was developed and its analytical performance characteristics have been determined by [facility], [place], [place]. It has not been cleared or approved by the FDA. This assay has been validated pursuant to the CLIA regulations and is used for clinical purposes. THIS TEST WAS PERFORMED AT: [facility] [address] [place] [address] GABRIEL GARCIA MD,PHD Blood Venous blood / Unknown 01/14/2025 9:55 AM EST 01/14/2025 9:55 AM EST Alf Carter MD LAB BLOOD ORDERABLES Final Re sult Performing Organization Address [facility] Co de Phone Number [place] See order comments [place] [address] * Vitamin D 25 hydroxy (01/14/2025 9:55 AM EST) Vitamin D, 25-Hydroxy 42.3 >30 ng/mL See order comments Comment: Health Based Reference Values* < 20 ng/mL Deficient 20-30 ng/mL Insufficient > 30 ng/mL Sufficient *Montse ENRIQUEZ. N Engl J Med. 2007;357:266-280 There is no well-established upper level of normal vitamin D levels. Some laboratories use 50 ng/mL as an upper limit of normal. However, toxicity is patient-dependent and may occur at any level. Careful correlation with the patient's presentation is necessary and, if there is concern for vitamin D toxicity, treatment should be considered irrespective of the serum level. Care must be taken in interpreting Vitamin D results from different laboratories and methodologies. Published data demonstrated that results from patients undergoing hemodialysis may show a negative bias when tested with various automated 25-OH vitamin D assays when compared to LC-MS/MS. When testing samples from patients whose predominant form of Vitamin D is Vitamin D2, such as patients receiving Vitamin D2 supplementation, results that are subtherapeutic should be confirmed with another method such as LC-MS/MS. Blood Venous blood / Unknown 01/14/2025 9:55 AM EST 01/14/2025 9:55 AM EST Alf Carter MD LAB BLOOD ORDERABLES Final Re sult Performing Organization Address [facility] [[email or web address]] de Phone Number [facility] See order comments [place] [address] * Angiotensin Converting Enzyme (01/14/2025 9:55 AM EST) Angiotensin Converting Enzyme 24 9 - 67 U/L See order comments Comment: THIS TEST WAS PERFORMED AT: [facility]/[address] GABRIEL GARCIA MD,PHD Blood Venous blood / Unknown 01/14/2025 9:55 AM EST 01/14/2025 9:55 AM EST Alf Carter MD LAB BLOOD ORDERABLES Final Re sult Performing Organization Address [facility] Co de Phone Number [facility] See order comments [place] [address] * ALT (01/14/2025 9:55 AM EST) ALT (SGPT) 27 0 - 31 U/L See orde r comments Blood Venous blood / Unknown 01/14/2025 9:55 AM EST 01/14/2025 9:55 AM EST us Alf Carter MD LAB BLOOD ORDERABLES Final Re sult Performing Organization Address [facility]/ZIP Co de Phone Number [facility] See order comments [place] [address] * AST (01/14/2025 9:55 AM EST) AST (SGOT) 22 5 - 31 U/L See orde r comments Blood Venous blood / Unknown 01/14/2025 9:55 AM EST 01/14/2025 9:55 AM EST us Alf Carter MD LAB BLOOD ORDERABLES Final Re sult Performing Organization Address [facility] Phone Number [facility] See order comments [place] [address] * (ABNORMAL) Phosphorus (01/14/2025 9:55 AM EST) Phosphorus, Serum 2.5(L) 2.7 - 4.5 mg/dL See order comments Blood Venous blood / Unknown 01/14/2025 9:55 AM EST 01/14/2025 9:55 AM EST us Alf Carter MD LAB BLOOD ORDERABLES Final Re sult Performing Organization Address [facility] [[email or web address]] de Phone Number [facility] See order comments [place] [address] * Alkaline phosphatase (01/14/2025 9:55 AM EST) Alkaline phosphatase 50 39 - 117 U/L See order comments Blood Venous blood / Unknown 01/14/2025 9:55 AM EST 01/14/2025 9:55 AM EST us Alf Carter MD LAB BLOOD ORDERABLES Final Re sult Performing Organization Address [facility] Co de Phone Number [facility] See order comments [place] [address] * Bilirubin, direct (01/14/2025 9:55 AM EST) Bilirubin, Direct 0.1 0.0 - 0.5 mg/dL See order comments 01/14/2025 9:55 AM EST 01/14/2025 9:55 AM EST us Alf Carter MD LAB BLOOD ORDERABLES Final Re sult [facility] See order comments [place] [address] * Bilirubin, total (01/14/2025 9:55 AM EST) Total Bilirubin 0.3 0.0 - 1.0 mg/dL See order comments 01/14/2025 9:55 AM EST 01/14/2025 9:55 AM EST us Alf Carter MD LAB BLOOD ORDERABLES Final Re sult Performing Organization Address [facility]/ZIP Co de Phone Number [facility] See order comments [place] [address] from Last 3 Months Insurance [facility] ([id number]) * Guarantor: Deyanira Hernandez Account Type Relation to Patient Date of Phone Billing Address Personal/Family Self [address] [place] [address] [facility] ([id number]) [place] [id number] Care Teams Fabrication Technician Relationship Specialty Start Date End Date Berkley Wasserman DO [address] [place] [id number] PCP - General 03/06/20
== END 2025-02-16 12:51 | disposition home or self-care (01) ==
LOC: HO.NEURO 12:50
PROVIDERS: PCP Family Medicine; Visit Provider Family Medicine
DX: M79.605 Pain in left leg (principal)
CPT/HCPCS: 95886; 95909

== ENCOUNTER → 2025-02-16 13:00 | Outpatient (BNV) | payer OTHER, SELFPAY | PROVIDERS: PCP Family Medicine; Visit Provider Psychiatry & Neurology Neurology | DX: G57.32 Lesion of lateral popliteal nerve, left lower limb (principal) | CPT/HCPCS: 95886; 95908 ==